=== PATIENT | female | born 1990 | race Caucasian/White ===

== ENCOUNTER → 2020-05-05 09:47 | Outpatient (BNVA) | payer OTHER, SELFPAY | PROVIDERS: PCP Internal Medicine; Referring Provider Internal Medicine; Visit Provider Internal Medicine | DX: Z76.89 Persons encountering health services in other specified circumstances (principal) ==

== ENCOUNTER → 2020-06-27 11:14 | Outpatient (BNVA) | payer OTHER, SELFPAY | PROVIDERS: PCP Internal Medicine; Referring Provider Internal Medicine; Visit Provider Internal Medicine | DX: Z76.89 Persons encountering health services in other specified circumstances (principal) ==

== ENCOUNTER → 2020-08-03 08:20 | Outpatient (BNVA) | payer OTHER, SELFPAY | PROVIDERS: PCP Internal Medicine; Visit Provider Internal Medicine ==

== ENCOUNTER 2020-08-13 08:54 | Outpatient (REF) | payer OTHER, SELFPAY ==
[2020-08-13 10:23] LABS: Estimated Average Glucose 123 mg/dL; Hemoglobin A1c % 5.9 %
[2020-08-13 10:30] LABS: Alanine Aminotransferase 12 U/L (0-31); Albumin Level 3.8 g/dL (3.5-5.0); Alkaline Phosphatase 112 U/L (39-117); Anion Gap 12 (12-20); Aspartate Amino Transferase 15 U/L (5-31); Bilirubin Total 0.7 mg/dL (0.0-1.0); Blood Urea Nitrogen 16 mg/dL (9-16); Calcium 8.3 mg/dL (8.4-10.2); Carbon Dioxide 26 mmol/L (22-29); Chloride 102 mmol/L (96-108); Cholesterol 236 mg/dL; Estimated Glomerular Filt Rate > 60; Glucose Random 179 mg/dL (60-115); HDL Cholesterol 66 mg/dL; LDL Cholesterol Calculated 157 mg/dl; Potassium 4.7 mmol/L (3.3-5.1); Sodium 135 mmol/L (135-145); Total Protein 7.2 g/dL (6.5-8.0); Triglycerides 66 mg/dL
[2020-08-13 10:54] LABS: Free T4 (Free Thyroxine) 0.75 ng/dL (0.71-1.85); HCG Quantitative < 2 mIU/mL; Thyroid Stimulating Hormone 71.84 uIU/mL (0.32-4.0); Vitamin D 25-OH Total 38.2 ng/mL (>30)
[2020-08-13 11:10] LABS: Creatinine Urine 168.13 mg/dL; Microalbum/Creatinine Ratio Ur 3.5 ug/mg cr
[2020-08-14 07:26] LABS: LDL Cholesterol Direct 176 mg/dL (<100)
[2020-08-15 17:32] LABS: Thyroglobulin <0.1 ng/mL
== END 2020-08-13 08:55 | disposition home or self-care (01) ==
LOC: HO.LAB 08:54
PROVIDERS: PCP Internal Medicine; Visit Provider Internal Medicine
DX: E10.69 Type 1 diabetes mellitus with other specified complication (principal); E55.9 Vitamin D deficiency, unspecified; E89.0 Postprocedural hypothyroidism; Z85.850 Personal history of malignant neoplasm of thyroid
CPT/HCPCS: 36415; 80053; 80061; 82043; 82306; 83036; 83721; 84432; 84439; 84443; 84702

== ENCOUNTER 2020-08-20 10:49 | Outpatient (REF) | payer OTHER, SELFPAY ==
[2020-08-20 11:49] LABS: Albumin Level 3.8 g/dL (3.5-5.0); Phosphorus 3.3 mg/dL (2.7-4.5)
[2020-08-20 12:15] LABS: Vitamin D 25-OH Total 38.9 ng/mL (>30)
[2020-08-22 16:37] LABS: Thyroglobulin <0.1 ng/mL
[2020-08-23 11:07] LABS: Calcium (PTHI) 8.5 mg/dL (8.6-10.2); PTHI 50 pg/mL (14-64)
== END 2020-08-20 10:50 | disposition home or self-care (01) ==
LOC: HO.LAB 10:49
PROVIDERS: PCP Internal Medicine; Visit Provider Internal Medicine
DX: E55.9 Vitamin D deficiency, unspecified (principal); Z85.850 Personal history of malignant neoplasm of thyroid
CPT/HCPCS: 36415; 82040; 82306; 83970; 84100; 84432; 84443

== ENCOUNTER → 2020-08-22 08:00 | Outpatient (BNVA) | payer OTHER, SELFPAY | PROVIDERS: PCP Internal Medicine; Visit Provider Internal Medicine Endocrinology, Diabetes & Metabolism ==

== ENCOUNTER → 2020-08-23 07:56 | Outpatient (BNVA) | payer OTHER, SELFPAY | PROVIDERS: PCP Internal Medicine; Visit Provider Internal Medicine Endocrinology, Diabetes & Metabolism ==

== ENCOUNTER 2020-08-23 08:22 | Outpatient (REF) | payer OTHER, SELFPAY ==
[2020-08-23 11:09] LABS: HCG Quantitative < 2 mIU/mL
== END 2020-08-23 08:23 | disposition home or self-care (01) ==
LOC: HO.10HDL 08:22
PROVIDERS: Visit Provider Internal Medicine
DX: Z85.850 Personal history of malignant neoplasm of thyroid (principal)
CPT/HCPCS: 36415; 84702

== ENCOUNTER 2020-08-24 09:16 | Outpatient (REF) | payer OTHER, SELFPAY ==
[2020-08-25 05:06] LABS: Thyroglobulin Antibodies <1 IU/mL (< or = 1)
== END 2020-08-24 09:17 | disposition home or self-care (01) ==
LOC: HO.10HDL 09:16
PROVIDERS: Visit Provider Internal Medicine
DX: Z85.850 Personal history of malignant neoplasm of thyroid (principal)
CPT/HCPCS: 36415; 86800

== ENCOUNTER 2020-10-01 10:59 | Outpatient (REF) | payer OTHER, SELFPAY ==
[2020-10-01 12:16] LABS: Creatinine Urine 79.38 mg/dL
[2020-10-01 12:24] LABS: Alanine Aminotransferase 18 U/L (0-31); Albumin Level 3.7 g/dL (3.5-5.0); Alkaline Phosphatase 130 U/L (39-117); Anion Gap 13 (12-20); Aspartate Amino Transferase 14 U/L (5-31); Bilirubin Total 0.6 mg/dL (0.0-1.0); Blood Urea Nitrogen 13 mg/dL (9-16); Calcium 7.9 mg/dL (8.4-10.2); Carbon Dioxide 26 mmol/L (22-29); Chloride 103 mmol/L (96-108); Estimated Glomerular Filt Rate > 60; Glucose Random 142 mg/dL (60-115); Potassium 4.8 mmol/L (3.3-5.1); Sodium 137 mmol/L (135-145); Total Protein 7.1 g/dL (6.5-8.0)
[2020-10-01 12:36] LABS: Thyroid Stimulating Hormone 16.71 uIU/mL (0.32-4.0)
[2020-10-03 13:36] LABS: Calcium (PTHI) 8.4 mg/dL (8.6-10.2); PTHI 45 pg/mL (14-64)
[2020-10-03 23:06] LABS: Thyroglobulin <0.1 ng/mL; Thyroglobulin Antibodies <1 IU/mL (< or = 1)
== END 2020-10-01 11:00 | disposition home or self-care (01) ==
LOC: HO.LAB 10:59
PROVIDERS: PCP Internal Medicine; Visit Provider Internal Medicine
DX: E10.69 Type 1 diabetes mellitus with other specified complication (principal); Z85.850 Personal history of malignant neoplasm of thyroid
CPT/HCPCS: 36415; 80053; 83970; 84432; 84443; 86800

== ENCOUNTER → 2020-10-06 11:11 | Outpatient (BNVA) | payer OTHER, SELFPAY | PROVIDERS: PCP Internal Medicine; Visit Provider Internal Medicine ==

== ENCOUNTER 2021-01-07 08:58 | Outpatient (REF) | payer OTHER, SELFPAY ==
[2021-01-07 09:41] LABS: Estimated Average Glucose 123 mg/dL; Hemoglobin A1C 150.4399 umol/L; Hemoglobin A1c % 5.9 %
[2021-01-07 10:00] LABS: Alanine Aminotransferase 27 U/L (0-31); Albumin Level 3.7 g/dL (3.5-5.0); Alkaline Phosphatase 147 U/L (39-117); Anion Gap 11 (12-20); Aspartate Amino Transferase 21 U/L (5-31); Bilirubin Total 0.5 mg/dL (0.0-1.0); Blood Urea Nitrogen 11 mg/dL (9-16); Calcium 8.3 mg/dL (8.4-10.2); Carbon Dioxide 25 mmol/L (22-29); Chloride 106 mmol/L (96-108); Cholesterol 163 mg/dL; Estimated Glomerular Filt Rate > 60; Glucose Random 115 mg/dL (60-115); HDL Cholesterol 57 mg/dL; LDL Cholesterol Calculated 100 mg/dl; Potassium 4.4 mmol/L (3.3-5.1); Sodium 138 mmol/L (135-145); Total Protein 7.3 g/dL (6.5-8.0); Triglycerides 34 mg/dL
[2021-01-07 10:21] LABS: Free T4 (Free Thyroxine) 1.64 ng/dL (0.71-1.85); Thyroid Stimulating Hormone 3.81 uIU/mL (0.32-4.0); Vitamin D 25-OH Total 54.6 ng/mL (>30)
[2021-01-08 09:56] LABS: LDL Cholesterol Direct 106 mg/dL (<100)
[2021-01-09 21:17] LABS: Thyroglobulin <0.1 ng/mL; Thyroglobulin Antibodies <1 IU/mL (< or = 1)
[2021-01-10 08:38] LABS: Calcium (PTHI) 8.2 mg/dL (8.6-10.2); PTHI 50 pg/mL (14-64)
== END 2021-01-07 08:59 | disposition home or self-care (01) ==
LOC: HO.LAB 08:58
PROVIDERS: PCP Internal Medicine; Visit Provider Internal Medicine
DX: E83.51 Hypocalcemia (principal); E89.0 Postprocedural hypothyroidism; E10.69 Type 1 diabetes mellitus with other specified complication; Z85.850 Personal history of malignant neoplasm of thyroid
CPT/HCPCS: 36415; 80053; 80061; 82306; 83036; 83721; 83970; 84100; 84432; 84439; 84443; 86800

== ENCOUNTER → 2021-02-22 07:59 | Outpatient (BNVA) | payer OTHER, SELFPAY | PROVIDERS: PCP Internal Medicine; Visit Provider Internal Medicine ==

== ENCOUNTER 2021-02-25 09:10 | Outpatient (REF) | payer OTHER, SELFPAY | END 2021-02-25 09:11 | disposition home or self-care (01) | LOC: HO.LAB 09:10 | PROVIDERS: PCP Internal Medicine; Visit Provider Internal Medicine | DX: Z13.89 Encounter for screening for other disorder (principal) ==

== ENCOUNTER 2021-03-11 07:57 | Outpatient (REF) | payer OTHER, SELFPAY ==
[2021-03-11 09:49] LABS: Estimated Average Glucose 123 mg/dL; Hemoglobin A1c % 5.9 %
[2021-03-11 09:56] LABS: Microalbum/Creatinine Ratio Ur 3.4 ug/mg cr
[2021-03-11 10:10] LABS: Alanine Aminotransferase 21 U/L (0-31); Albumin Level 3.6 g/dL (3.5-5.0); Alkaline Phosphatase 131 U/L (39-117); Anion Gap 11 (12-20); Aspartate Amino Transferase 15 U/L (5-31); Bilirubin Total 0.7 mg/dL (0.0-1.0); Blood Urea Nitrogen 12 mg/dL (9-16); Calcium 8.6 mg/dL (8.4-10.2); Carbon Dioxide 24 mmol/L (22-29); Chloride 107 mmol/L (96-108); Cholesterol 129 mg/dL; Estimated Glomerular Filt Rate > 60; Glucose Random 120 mg/dL (60-115); HDL Cholesterol 45 mg/dL; LDL Cholesterol Calculated 76 mg/dl; Potassium 4.3 mmol/L (3.3-5.1); Sodium 138 mmol/L (135-145); Total Protein 6.5 g/dL (6.5-8.0); Triglycerides 41 mg/dL
[2021-03-11 10:18] LABS: Free T4 (Free Thyroxine) 1.53 ng/dL (0.71-1.85); Thyroid Stimulating Hormone 0.74 uIU/mL (0.32-4.0)
[2021-03-12 08:30] LABS: LDL Cholesterol Direct 77 mg/dL (<100)
[2021-03-13 21:32] LABS: Thyroglobulin <0.1 ng/mL; Thyroglobulin Antibodies <1 IU/mL (< or = 1)
== END 2021-03-11 07:58 | disposition home or self-care (01) ==
LOC: HO.LAB 07:57
PROVIDERS: PCP Internal Medicine; Visit Provider Internal Medicine
DX: E83.51 Hypocalcemia (principal); E89.0 Postprocedural hypothyroidism
CPT/HCPCS: 36415; 80053; 80061; 82043; 83036; 83721; 84432; 84439; 84443; 86800

== ENCOUNTER → 2021-05-15 07:27 | Outpatient (BNVA) | payer OTHER, SELFPAY | PROVIDERS: PCP Internal Medicine; Visit Provider Internal Medicine | DX: E10.69 Type 1 diabetes mellitus with other specified complication (principal); E89.0 Postprocedural hypothyroidism; E55.9 Vitamin D deficiency, unspecified; E78.5 Hyperlipidemia, unspecified; E83.51 Hypocalcemia; I10 Essential (primary) hypertension; Z85.850 Personal history of malignant neoplasm of thyroid | CPT/HCPCS: 82947 ==

== ENCOUNTER 2021-06-03 09:41 | Outpatient (REF) | payer OTHER, SELFPAY ==
[2021-06-03 09:52] LABS: MANUAL DIFF FLAG NO
[2021-06-03 10:25] LABS: Basophils Percent Auto 0.6 % (0-2); Eosinophils Percent Auto 0.6 % (0-4); Hematocrit 40.5 % (37.0-47.0); Hemoglobin 13.6 g/dl (12.0-16.0); Imm Gran Abs Auto 0.01 X10*3/uL (0.00-0.03); Imm Gran Pct Auto 0.2 % (0.0-0.4); Lymphocytes Absolute Auto 1.8 X10*3/uL (1.2-4.9); Lymphocytes Percent Auto 29.1 % (20-40); Mean Corpuscular HGB Conc 33.6 g/dl (31.0-35.0); Mean Corpuscular Hemoglobin 29.4 pg (27.0-33.0); Mean Corpuscular Volume 87.5 fL (80.0-98.0); Mean Platelet Volume 11.2 fL (9.4-12.3); Monocytes Absolute Auto 0.5 X10*3/uL (0.1-1.2); Monocytes Percent Auto 8.2 % (2-11); Neutrophils Absolute Auto 3.8 x10*3/uL (2.0-8.3); Neutrophils Percent Auto 61.3 % (45-73); Platelet Count 383 X10*3/uL (160-400); Red Blood Count 4.63 X10*6/uL (4.20-5.50); Red Cell Distribution Width 11.8 % (11.0-16.0); White Blood Count 6.2 X10*3/uL (4.8-10.8)
[2021-06-03 10:43] LABS: Alanine Aminotransferase 33 U/L (0-31); Albumin Level 3.6 g/dL (3.5-5.0); Alkaline Phosphatase 139 U/L (39-117); Anion Gap 10 (12-20); Aspartate Amino Transferase 21 U/L (5-31); Bilirubin Total 0.6 mg/dL (0.0-1.0); Blood Urea Nitrogen 14 mg/dL (9-16); Calcium 8.7 mg/dL (8.4-10.2); Carbon Dioxide 26 mmol/L (22-29); Chloride 104 mmol/L (96-108); Estimated Glomerular Filt Rate > 60; Glucose Random 163 mg/dL (60-115); Potassium 4.7 mmol/L (3.3-5.1); Sodium 135 mmol/L (135-145); Total Protein 6.8 g/dL (6.5-8.0)
[2021-06-03 11:05] LABS: Free T4 (Free Thyroxine) 1.67 ng/dL (0.71-1.85); Thyroid Stimulating Hormone 0.27 uIU/mL (0.32-4.0); Vitamin B12 346 pg/mL (200-900); Vitamin D 25-OH Total 52.9 ng/mL (>30)
[2021-06-05 14:42] LABS: Calcium (PTHI) 8.7 mg/dL (8.6-10.2); PTHI 26 pg/mL (14-64); Thyroglobulin <0.1 ng/mL; Thyroglobulin Antibodies <1 IU/mL (< or = 1)
== END 2021-06-03 09:42 | disposition home or self-care (01) ==
LOC: HO.LAB 09:41
PROVIDERS: PCP Internal Medicine; Visit Provider Internal Medicine
DX: E10.69 Type 1 diabetes mellitus with other specified complication (principal); E55.9 Vitamin D deficiency, unspecified
CPT/HCPCS: 36415; 80053; 82306; 82607; 83970; 84432; 84439; 84443; 85025; 86800

== ENCOUNTER → 2021-06-09 14:58 | Outpatient (BNVA) | payer OTHER, SELFPAY | PROVIDERS: PCP Internal Medicine; Visit Provider Registered Nurse Diabetes Educator ==

== ENCOUNTER → 2021-07-14 14:58 | Outpatient (BNVA) | payer OTHER, SELFPAY | PROVIDERS: PCP Internal Medicine; Visit Provider Registered Nurse Diabetes Educator ==

== ENCOUNTER → 2021-08-04 14:24 | Outpatient (BNVA) | payer OTHER, SELFPAY | PROVIDERS: PCP Internal Medicine; Visit Provider Registered Nurse Diabetes Educator ==

== ENCOUNTER → 2021-09-12 15:51 | Outpatient (BNVA) | payer OTHER, SELFPAY | PROVIDERS: PCP Internal Medicine; Visit Provider Registered Nurse Diabetes Educator | DX: Z13.89 Encounter for screening for other disorder (principal) ==

== ENCOUNTER 2021-10-21 09:59 | Outpatient (REF) | payer OTHER, SELFPAY ==
[2021-10-21 11:02] LABS: Alanine Aminotransferase 52 U/L (0-31); Albumin Level 3.6 g/dL (3.5-5.0); Alkaline Phosphatase 132 U/L (39-117); Anion Gap 9 (12-20); Aspartate Amino Transferase 30 U/L (5-31); Bilirubin Total 0.5 mg/dL (0.0-1.0); Blood Urea Nitrogen 12 mg/dL (9-16); Calcium 8.8 mg/dL (8.4-10.2); Carbon Dioxide 28 mmol/L (22-29); Chloride 106 mmol/L (96-108); Estimated Glomerular Filt Rate > 60; Glucose Random 104 mg/dL (60-115); Potassium 4.6 mmol/L (3.3-5.1); Sodium 138 mmol/L (135-145); Total Protein 6.7 g/dL (6.5-8.0)
[2021-10-21 11:05] LABS: Estimated Average Glucose 120 mg/dL; Hemoglobin A1c % 5.8 %
[2021-10-21 11:22] LABS: Free T4 (Free Thyroxine) 1.25 ng/dL (0.71-1.85); Thyroid Stimulating Hormone 0.19 uIU/mL (0.32-4.0); Vitamin D 25-OH Total 43.2 ng/mL (>30)
[2021-10-23 15:57] LABS: Calcium (PTHI) 8.5 mg/dL (8.6-10.2); PTHI 43 pg/mL (16-77)
[2021-10-24 04:51] LABS: Thyroglobulin Antibodies <1 IU/mL (< or = 1)
[2021-10-24 09:12] LABS: Thyroglobulin <0.1 ng/mL
== END 2021-10-21 10:00 | disposition home or self-care (01) ==
LOC: HO.LAB 09:59
PROVIDERS: PCP Internal Medicine; Visit Provider Internal Medicine
DX: E89.0 Postprocedural hypothyroidism (principal); E83.51 Hypocalcemia; E10.69 Type 1 diabetes mellitus with other specified complication
CPT/HCPCS: 36415; 80053; 82306; 83036; 83970; 84432; 84439; 84443; 86800

== ENCOUNTER → 2021-10-23 07:30 | Outpatient (BNVA) | payer OTHER, SELFPAY | PROVIDERS: PCP Internal Medicine; Visit Provider Internal Medicine | DX: Z13.89 Encounter for screening for other disorder (principal) ==

== ENCOUNTER → 2021-10-30 11:01 | Outpatient (BNVA) | payer OTHER, SELFPAY | PROVIDERS: PCP Internal Medicine; Visit Provider Registered Nurse Diabetes Educator | DX: Z13.89 Encounter for screening for other disorder (principal) ==

== ENCOUNTER 2021-12-07 08:18 | Outpatient (REF) | payer OTHER, SELFPAY ==
--- NOTE | ~2021-12-07 | US_ITS ---
EXAMINATION: US SOFT TISSUE NECK CLINICAL INFORMATION: Personal history of malignant neoplasm of thyroid. COMPARISON: Ultrasound-guided thyroid biopsy dated 08/06/2019. Ultrasound soft tissue head/neck thyroid dated 04/15/2019. TECHNIQUE: Ultrasound of the neck soft tissues is performed with high- frequency alfaro-scale imaging and color Doppler. FINDINGS: THYROID BED: Prior thyroidectomy. No residual thyroid tissue demonstrated in the thyroid bed. No cystic or solid nodules demonstrated in the thyroid bed. RIGHT NECK SOFT TISSUES: Scattered architecturally normal nodes are present. The nodes show normal fatty hilus, normal cortical thickness, and no cystic change or calcification. No abnormal color flow. The largest nodes are as follows: Level IB: 0.76 x 0.45 x 0.72 cm. Normal dianelys architecture. Level IA: 0.72 x 0.60 x 0.52 cm. Normal dianelys architecture. LEFT NECK SOFT TISSUES: Scattered architecturally normal nodes are present. The nodes show normal fatty hilus, normal cortical thickness, and no cystic change or calcification. No abnormal color flow. No lymph nodes seen on the left. US/US soft tiss head and/or neck IMPRESSION: 1. Benign right neck lymph nodes. No abnormal left neck lymph nodes seen. 2. If clinically indicated further evaluation of the neck soft tissues and nodes may be performed with CT soft tissue neck with intravenous contrast.
== END 2021-12-07 08:19 | disposition home or self-care (01) ==
LOC: HO.HMGCX 08:18
PROVIDERS: Visit Provider Internal Medicine
DX: Z85.850 Personal history of malignant neoplasm of thyroid (principal)
CPT/HCPCS: 76536

== ENCOUNTER 2022-02-24 09:45 | Outpatient (REF) | payer OTHER, SELFPAY ==
[2022-02-24 11:54] LABS: Free T4 (Free Thyroxine) 1.08 ng/dL (0.71-1.85); HCG Quantitative < 2 mIU/mL
[2022-02-26 17:47] LABS: Thyroglobulin <0.1 ng/mL; Thyroglobulin Antibodies <1 IU/mL (< or = 1)
== END 2022-02-24 09:46 | disposition home or self-care (01) ==
LOC: HO.LAB 09:45
PROVIDERS: PCP Internal Medicine; Visit Provider Internal Medicine
DX: E89.0 Postprocedural hypothyroidism (principal); Z85.850 Personal history of malignant neoplasm of thyroid
CPT/HCPCS: 36415; 84432; 84439; 84443; 84702; 86800

== ENCOUNTER → 2022-04-12 13:07 | Outpatient (BNVA) | payer OTHER, SELFPAY | PROVIDERS: PCP Internal Medicine; Visit Provider Dietitian, Registered | DX: E10.319 Type 1 diabetes mellitus with unspecified diabetic retinopathy without macular edema (principal) | CPT/HCPCS: 97802 ==

== ENCOUNTER 2022-04-21 08:50 | Outpatient (REF) | payer OTHER, SELFPAY ==
[2022-04-21 10:31] LABS: Anion Gap 15 (12-20); Blood Urea Nitrogen 13 mg/dL (9-16); Carbon Dioxide 24 mmol/L (22-29); Chloride 103 mmol/L (96-108); Cholesterol 248 mg/dL; Estimated Glomerular Filt Rate > 60; Glucose Fasting 134 mg/dL (60-99); HDL Cholesterol 60 mg/dL; LDL Cholesterol Calculated 177 mg/dl; Potassium 4.5 mmol/L (3.3-5.1); Sodium 137 mmol/L (135-145); Triglycerides 59 mg/dL
[2022-04-21 10:40] LABS: Vitamin D 25-OH Total 38.9 ng/mL (>30)
== END 2022-04-21 08:51 | disposition home or self-care (01) ==
LOC: HO.LAB 08:50
PROVIDERS: Absent Provider Internal Medicine; PCP Internal Medicine; Visit Provider Internal Medicine
DX: E10.319 Type 1 diabetes mellitus with unspecified diabetic retinopathy without macular edema (principal); E10.49 Type 1 diabetes mellitus with other diabetic neurological complication; E78.5 Hyperlipidemia, unspecified; I10 Essential (primary) hypertension; E55.9 Vitamin D deficiency, unspecified
CPT/HCPCS: 36415; 80048; 80061; 82043; 82306

== ENCOUNTER 2022-04-28 10:02 | Outpatient (REF) | payer OTHER, SELFPAY ==
[2022-04-28 11:23] LABS: Free T4 (Free Thyroxine) 1.42 ng/dL (0.71-1.85); Thyroid Stimulating Hormone 0.81 uIU/mL (0.32-4.0)
[2022-05-03 05:41] LABS: Thyroglobulin Antibody <1 IU/mL (<=1); Thyroglobulin Level <0.1 ng/mL
== END 2022-04-28 10:03 | disposition home or self-care (01) ==
LOC: HO.LAB 10:02
PROVIDERS: PCP Internal Medicine; Visit Provider Internal Medicine
DX: Z85.850 Personal history of malignant neoplasm of thyroid (principal)
CPT/HCPCS: 36415; 84432; 84439; 84443; 86800

== ENCOUNTER 2022-05-05 09:42 | Outpatient (REF) | payer OTHER, SELFPAY ==
[2022-05-05 10:57] LABS: Estimated Average Glucose 117 mg/dL; Hemoglobin A1c % 5.7 %
[2022-05-05 11:02] LABS: Creatinine Urine 131.65 mg/dL; Microalbum/Creatinine Ratio Ur 6.8 ug/mg cr
== END 2022-05-05 09:43 | disposition home or self-care (01) ==
LOC: HO.LAB 09:42
PROVIDERS: PCP Internal Medicine; Visit Provider Internal Medicine
DX: E10.319 Type 1 diabetes mellitus with unspecified diabetic retinopathy without macular edema (principal)
CPT/HCPCS: 36415; 82043; 83036

== ENCOUNTER 2022-12-07 12:46 | Outpatient (REF) | payer OTHER, SELFPAY ==
--- NOTE | ~2022-12-07 | XR_ITS ---
EXAMINATION: XR HAND, RIGHT CLINICAL INFORMATION: Pain COMPARISON: None available. TECHNIQUE: PA, lateral, and oblique views of the right hand. FINDINGS: Bone alignment is normal. No acute fracture or dislocation. There may be old trauma to the fifth metacarpal shaft. Joint spaces are normal. Soft tissues are normal. XR/XR hand RT min 3V IMPRESSION: No acute findings.
== END 2022-12-07 12:47 | disposition home or self-care (01) ==
LOC: HO.HMGCX 12:46
PROVIDERS: PCP Internal Medicine; Visit Provider Internal Medicine
DX: M79.644 Pain in right finger(s) (principal)
CPT/HCPCS: 73130

== ENCOUNTER 2022-12-15 10:29 | Outpatient (REF) | payer OTHER, SELFPAY ==
[2022-12-15 11:18] LABS: Estimated Average Glucose 120 mg/dL; Hemoglobin A1c % 5.8 %
[2022-12-15 11:48] LABS: Alanine Aminotransferase 18 U/L (0-31); Albumin Level 3.7 g/dL (3.5-5.0); Alkaline Phosphatase 103 U/L (39-117); Anion Gap 12 (12-20); Aspartate Amino Transferase 17 U/L (5-31); Bilirubin Total 0.5 mg/dL (0.0-1.0); Blood Urea Nitrogen 13 mg/dL (9-16); Calcium 9.1 mg/dL (8.4-10.2); Carbon Dioxide 25 mmol/L (22-29); Chloride 105 mmol/L (96-108); Cholesterol 209 mg/dL; Estimated Glomerular Filt Rate > 60; Glucose Fasting 120 mg/dL (60-99); Glucose Random 120 mg/dL (60-115); HDL Cholesterol 56 mg/dL; LDL Cholesterol Calculated 143 mg/dl; Phosphorus 3.6 mg/dL (2.7-4.5); Potassium 4.3 mmol/L (3.3-5.1); Sodium 138 mmol/L (135-145); Total Protein 6.8 g/dL (6.5-8.0); Triglycerides 53 mg/dL
[2022-12-15 11:50] LABS: Cholesterol 206 mg/dL; HDL Cholesterol 57 mg/dL; LDL Cholesterol Calculated 141 mg/dl; Triglycerides 43 mg/dL
[2022-12-15 12:06] LABS: Thyroid Stimulating Hormone 2.19 uIU/mL (0.32-4.0)
[2022-12-15 12:10] LABS: Vitamin D 25-OH Total 49.9 ng/mL (>30)
[2022-12-15 12:52] LABS: Microalbum/Creatinine Ratio Ur 8.7 ug/mg cr
[2022-12-17 10:24] LABS: LDL Cholesterol Direct 141 mg/dL (<100)
[2022-12-19 14:18] LABS: Calcium (PTHI) 8.7 mg/dL (8.6-10.2); PTHI 31 pg/mL (16-77)
[2022-12-20 04:28] LABS: Thyroglobulin Antibody <1 IU/mL (<=1); Thyroglobulin Level <0.1 ng/mL
== END 2022-12-15 10:30 | disposition home or self-care (01) ==
LOC: HO.LAB 10:29
PROVIDERS: PCP Internal Medicine; Visit Provider Internal Medicine
DX: E78.5 Hyperlipidemia, unspecified (principal); I10 Essential (primary) hypertension; E10.319 Type 1 diabetes mellitus with unspecified diabetic retinopathy without macular edema; E55.9 Vitamin D deficiency, unspecified; E89.0 Postprocedural hypothyroidism; Z85.850 Personal history of malignant neoplasm of thyroid
CPT/HCPCS: 36415; 80048; 80053; 80061; 82043; 82306; 83036; 83721; 83970; 84100; 84432; 84439; 84443; 86800

== ENCOUNTER 2023-01-16 09:23 | Outpatient (AMB) | payer OTHER, SELFPAY ==
--- NOTE | 2023-01-16 09:23 | MHC.OFFVIS ---
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: No Allergies No Known Allergies Allergy (Verified 01/16/23 11:55) Medication List - Last Reconciled 01/16/23 by Estefany Medrano DO atorvastatin 40 mg PO DAILY calcium citrate-vitamin D3 315 mg-6.25 mcg (250 unit) (Citracal + Vitamin D Maximum) 2 tabs PO DAILY cholecalciferol (vitamin D3) 50 mcg PO DAILY 90 days insulin lispro (Humalog U-100 Insulin) Up to 150 units daily via insulin pump subcut daily; ROXY - no substitutions Brand name medically necessary 30 days lisinopril 2.5 mg PO DAILY 30 days pen needle, diabetic (BD Ultra-Fine Micro Pen Needle) 8x daily Tirosint (levothyroxine) 175 mcg PO DAILY 30 days NS HPI HPI Comments History of Present Illness Details 32 YO Female with PMHx T1DM, PTC s/p hemithyroidectomy and Oswaldo's disease who is seen in F/U. Of note her T1DM will not be reviewed today. 1) T1DM: Initially diagnosed with T1DM at the age of 2. She is currently using the Tandem T-Slim insulin pump and the DEXCOM G6 CGM. Pump/Sensor: Uses Tandem T-Slim insulin pump with Lispro. Does use Control IQ. Pump settings: Basal: 12 am: 1.75 units/hr Total Daily Basal Dose: 42.0 units/day ISF: 15 ICR: 3 Goal: 100 Duration of Insulin Action: 3 hours She is currently using a total daily dose of 98.82 units of insulin, with 31% basal and 69% bolus. She changes her site Q 2-3 days. Has DEXCOM G6 Sensor. Unable to review sugars today. Most recent A1C: 5.8% 10/21/2021, unchanged from 5.9% 03/11/2021. She does have occasional lows overnight as well as after her lunchtime bolus. She is symptomatic at these times and treats according to the rule of 15's. Denies family history of autoimmunity. Has eyes checked yearly, last eye exam 05/2021, she reports there is concern for retinopathy. She sees Dr. Houser at [facility]. Denies Neuropathy. Does have stocking glove pattern distribution of paresthesias. No Nephropathy, off TOMASZ/ARB as she was trying to conceive. UAC 3.4 03/11/2021. Has HLD, off statin as she was trying to conceive. LDL 77 03/11/2021. Denies CAD Has had diabetes education. Diet/Carb counting: Is comfortable with carb counting. She recently stopped her OCP and is interested in conceiving in the near future. 2) Thyroid Cancer: The patient was noted to have a goiter on exam and underwent thyroid US which revealed a multinodular thyroid. [facility] which revealed a diffusely heterogenous gland consistent with Oswaldo's disease, with multiple pseudonodules. There was a true nodule present in the R mid pole measuring 1.0 cm with some peripheral calcification. FNA biopsy of this nodule was performed with official Cytology reading [place] Category IV Suspicious for follicular neoplasm. I did receive a call from the Pathologist Dr. Bunny Connor on 08/10/2019 who stated that he felt this was more consistent with a [place] Category V, suspicious for PTC, and that he felt strongly the lesion should be removed. 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 0/2 lymph nodes were positive. This was [id number]. She underwent a completion thyroidectomy 03/23/2020. Path revealed 2 foci of PTC measuring 1.6 cm and 0.2 cm. The 1.6 cm foci did have ill defined margins as well as capsular invasion. She did undergo I131 ablation that was thyrogen stimulated 08/24/2020 with 29.1 mCi of I131. 08/20/20 TSH 45.3, TG <0.1 with TgAB <1. WBS subsequent to this treatment revealed faint uptake within the neck, and a lack of physiologic activity throughout the body, which was concerning for a high iodine load prior to treatment. She had labs completed 10/01/2020 which revealed a TSH of 16.71, TG <0.1 and TG antibody <1. Her dose of Levothyroxine was increased to 200 mcg PO daily. Labs repeated 01/07/2021 revealed a TSH of 3.81, TG <0.1 and TgAB <1. Her dose was changed to Tirosint 200 mcg PO daily at that time due to suspected absorption issues. She then became slightly hyperthyroid so her Tirosint was decreased to 175 mcg PO daily. She had an US head and neck 12/07/2021 which revealed no abnormality. US Head and Neck: 12/07/2021 FINDINGS: THYROID BED: Prior thyroidectomy. No residual thyroid tissue demonstrated in the thyroid bed. No cystic or solid nodules demonstrated in the thyroid bed. RIGHT NECK SOFT TISSUES: Scattered architecturally normal nodes are present. The nodes show normal fatty hilus, normal cortical thickness, and no cystic change or calcification. No abnormal color flow. The largest nodes are as follows: Level IB: 0.76 x 0.45 x 0.72 cm.? Normal dianelys architecture. Level IA: 0.72 x 0.60 x 0.52 cm.? Normal dianelys architecture. LEFT NECK SOFT TISSUES: Scattered architecturally normal nodes are present. The nodes show normal fatty hilus, normal cortical thickness, and no cystic change or calcification. No abnormal color flow. No lymph nodes seen on the left. US/US soft tiss head and/or neck IMPRESSION: 1. Benign right neck lymph nodes. ? No abnormal left neck lymph nodes seen. ? 2. If clinically indicated further evaluation of the neck soft tissues and nodes may be performed with CT soft tissue neck with intravenous contrast. 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 History of thyroid cancer HLD (hyperlipidemia) HTN (hypertension) Hypocalcemia Morbid obesity with BMI of 50.0-59.9, adult Onychomycosis of multiple toenails with type 1 diabetes mellitus Postoperative hypothyroidism Proteinuria Type 1 diabetes mellitus with retinopathy Vitamin D deficiency Surgical History History of dental surgery History of foot surgery Hx of thyroidectomy Family History Father Myocardial infarction Pacemaker Mother Pulmonary embolism High cholesterol Social History Household Members: Spouse Housing: House Patient Tobacco Use Status: Never used Tobacco e-Cigarette/Vaping Use: Never Used Second Hand Smoke Exposure: No service: No Current occupational status: employed Cognitive needs: No Hearing needs: No Vision needs: Yes Assessment & Plan Assessment & Plan (1) History of thyroid cancer: Code(s): Z85.850 - Personal history of malignant neoplasm of thyroid Plan: 30 YO Female with 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 She is s/p R hemithyroidectomy wth subsequent completion thyroidectomy. She did undergo I131 ablation with 29.1 mCi I131 08/24/2020. Post-treatment WBS revealed very little uptake, which was concerning for a high iodine load prior to treatment. Her TG levels are undetectable with negative TG antibodies, which is reassuring. Goal TSH is currently 0.5-2.0. She is on Levothyroxine 175 mcg PO daily, dose recently increased after labs showed hypothyroidism. Will repeat labs in 3 months time. She has declined further I131 WBS as she is interested in fertility in the near future. She will F/U as scheduled with routine labs. All of her questions were answered today. She is in agreement with this plan of care. I spent 20 minutes in reviewing the record, seeing the patient and documenting in the medical record, including 8 minutes on the phone with the Patient. (2) Postoperative hypothyroidism: Code(s): E89.0 - Postprocedural hypothyroidism Plan: Goal TSH is 0.5-2.0. Will repeat levels in 3 months time. I did advise her that her TSH must be below 2.4 prior to . She verbalized understanding. (3) Vitamin D deficiency: Code(s): E55.9 - Vitamin D deficiency, unspecified Plan: Vitamin D at goal. No changes. (4) T1DM (type 1 diabetes mellitus): Code(s): E10.9 - Type 1 diabetes mellitus without complications Qualifiers: Diabetes mellitus complication status: with other specified complication Qualified Code(s): E10.69 - Type 1 diabetes mellitus with other specified complication Plan: She is currently using the Tandem T-Slim insulin pump. We did review that she does have significant insulin resistance in addition to her T1DM. We reviewed the option of Mounjaro which can help with significant weight loss. She has decided to focus on weight loss efforts prior to attempting to conceive. We did review mounjaro must be stopped for 3 months prior to conception. She verbalizes understanding. Will start Mounjaro 2.5 mg once a week. She will notify me of any issues with insurance coverage. We reviewed the side effects of GLP-1 medication. Patient has no history of pancreatitis and no personal or family history of medullary thyroid cancer. She is athyrotic due to total thyroidectomy for PTC. We reviewed the black box warning for use of mounjaro in those with thyroid cancer. She states she understands these risks but wishes to use Mounjaro anyways. She will notify me of any problems. All of her questions were answered. She is in agreement with this plan of care. The importance of adherence to prescribed regimen was discussed with the patient including checking finger sticks 3-4 times per day, using medication as prescribed, monitoring for hypoglycemia and treating any episode of hypoglycemia according to the rule of 15's. The signs and symptoms of hypoglycemia were reviewed in detail, as well as the rule of 15's to treat. Proper foot care was also discussed with the patient, and the importance of yearly dilated eye exam. The patient was asked to have copy of eye exam sent to our office for review. (5) HTN (hypertension): Code(s): I10 - Essential (primary) hypertension Qualifiers: Hypertension type: primary hypertension Qualified Code(s): I10 - Essential (primary) hypertension Plan: Off TOMASZ/ARB as she was trying to conceive in the near future. (6) HLD (hyperlipidemia): Code(s): E78.5 - Hyperlipidemia, unspecified Qualifiers: Hyperlipidemia type: unspecified Qualified Code(s): E78.5 - Hyperlipidemia, unspecified Plan: Off Statin as she had been trying to conceive in the near future. (7) Hypocalcemia: Code(s): E83.51 - Hypocalcemia Plan: Patient with hypocalcemia due to hypoparathyroidism. Her PTH has recovered nicely. Remains on Calcium citrate 2 tabs daily. Calcium corrected for albumin is WNL. Medications: New tirzepatide (Mounjaro) 2.5 mg (0.5 mL) subcut QWEEK 4 weeks 2 mL 0RF E10.319 - Type 1 diabetes mellitus with unspecified diabetic retinopathy without macular edema Telehealth Telehealth Location of provider rendering services: practice address Location of patient: address on file Patient Identification confirmed using: Name, : Yes Telehealth method: voice only Patient verbally consented to treatment: Yes Patient verbally consented to billing insurance company: Yes Patient informed of any privacy concerns related to visit: Yes Coding Level of Care Code Tele Est Pt Level 3 (49304) Diagnoses History of thyroid cancer Z85.850 Postoperative hypothyroidism E89.0 Vitamin D deficiency E55.9 T1DM (type 1 diabetes mellitus) E10.69 Diabetes mellitus complication status: with other specified complication HTN (hypertension) I10 Hypertension type: primary hypertension HLD (hyperlipidemia) E78.5 Hyperlipidemia type: unspecified Hypocalcemia E83.51
== END 2023-01-16 14:01 | disposition home or self-care (01) ==
LOC: HO.ENCR 09:23
PROVIDERS: PCP Internal Medicine; Visit Provider Internal Medicine
DX: E89.0 Postprocedural hypothyroidism (principal); Z85.850 Personal history of malignant neoplasm of thyroid; E55.9 Vitamin D deficiency, unspecified; E10.69 Type 1 diabetes mellitus with other specified complication; I10 Essential (primary) hypertension; E78.5 Hyperlipidemia, unspecified; E83.51 Hypocalcemia
CPT/HCPCS: 99213

== ENCOUNTER → 2023-01-16 09:23 | Outpatient (BNVA) | payer OTHER, SELFPAY | PROVIDERS: PCP Internal Medicine; Visit Provider Internal Medicine ==

== ENCOUNTER 2023-01-22 10:01 | Outpatient (AMB) | payer OTHER, SELFPAY ==
[2023-01-22 10:17] VITALS: BMI 56.9
--- NOTE | 2023-01-22 10:17 | A.OFFVIS_ITS ---
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 No injury she can recall. States pain is triggered when she is driving. States her thumb jams .Patient uses her hands a lot at work and texting and this limits her activity.States she is not able to fully extend her thumb. Hx of DM. No prior treatment. 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 She says she has some radiating pain in her thumb to the A1 alida when she tries to extend her thumb. 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 She also enjoys bowling often but says her thumb limits all her daily activities. She is a Diabetic. She says she had a period of time when she had numbness in the back of her hand extending up her forearm and into her elbow. She says this has resolved. 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 History of thyroid cancer HLD (hyperlipidemia) HTN (hypertension) Hypocalcemia Morbid obesity with BMI of 50.0-59.9, adult Onychomycosis of multiple toenails with type 1 diabetes mellitus Postoperative hypothyroidism Proteinuria Type 1 diabetes mellitus with retinopathy Vitamin D deficiency Surgical History History of dental surgery History of foot surgery Hx of thyroidectomy Family History Father Myocardial infarction Pacemaker Mother Pulmonary embolism High cholesterol Social History Household Members: Spouse Housing: House Patient Tobacco Use Status: Never used Tobacco e-Cigarette/Vaping Use: Never Used Second Hand Smoke Exposure: No service: No Current occupational status: employed 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 Cognitive needs: No Hearing needs: No Vision needs: Yes Review of Systems Const All systems reviewed & are unremarkable except as noted in HPI and below Physical Exam Vital Signs: BMI result Body Mass Index 56.9 Const General: cooperative, healthy appearing and no acute distress Orientation/consciousness: patient oriented x3 HEENT Head: Yes normocephalic and Yes atraumatic Eyes EOM: EOMs intact bilaterally Resp Effort & Inspection: normal respiratory effort and able to speak in complete s entences Cardio Jugular venous distension: no JVD Skin General skin exam: turgor normal Rashes: no rashes Neuro General: patient oriented x3 Extrem Other: Evaluation of Right Upper Extremity: The patient is alert, oriented, and in no acute distress Neuro: Median, Ulnar, Radial nerves motor and sensory intact and sensation is normal to the tips of all digits Vascular: Cap refill brisk ROM: She can bring her finger closed to a fist and back into full extension, except for the right thumb IP joint Her thumb is locked in a position of flexion Good EPL tendon function, as she is able to elevate her thumb with a table top test. Tender to palpation over the right thumb A1 alida. Attempts to try to passively extend the thumb at the IP joint cause pain at the A1 alida. I did not force it. Skin: No lacerations or abrasions. General: No Ecchymosis. No Erythema or evidence of infection. Radiographs: 3 views of the right hand, with attention to the thumb, from 12/07/22 were reviewed by me today in clinic. They show no fractures, dislocations, or significant arthritic changes. 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 Right trigger thumb With her thumb locked in flexion Good EPL tendon function I educated her about this condition I discussed treatment options Given her thumb is locked in flexion, I recommend surgery and she is in agreement The risks and benefits of operative treatment were discussed with the patient and the patient wishes to proceed with surgery. These risks include, but are not limited to risk of damage to blood vessels, nerves, tendons, infection, recurrence, incomplete relief of preoperative symptoms, persistent pain, possible need for further surgery and the risks associated with regional blocks and anesthesia. The plan is to take the patient to the operating room sometime in the next few weeks for the following procedures: 1. Right trigger thumb release, under local All of the preoperative paperwork including the consent was filled out today. All the patient's questions were answered. The patient understands that they will be contacted by our reinforcing steel worker soon to schedule this procedure She says she has issues with injections and has taken Ativan in the past prior to procedures. She would like to take one prior to surgery, and says this was usually provided for her prior to surgery I prescribed one dose of Lorazepam 0.5mg to take just prior to her surgery. The prescription was sent to her pharmacy. She denies blood thinners, asthma, heart, lung, kidney issues She is a Diabetic, her most recent HgA1c was 5.8% o 12/15/22 Scribed for Rachel Pedroza MD by Ryan Ward, medical record administrator, on 01/22/23 at 10:55 AM, EST. 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
== END 2023-01-22 11:05 | disposition home or self-care (01) ==
PROVIDERS: PCP Internal Medicine; Visit Provider Orthopaedic Surgery
DX: M65.311 Trigger thumb, right thumb (principal)
CPT/HCPCS: 99204

== ENCOUNTER → 2023-01-22 10:01 | Outpatient (BNVA) | payer OTHER, SELFPAY | PROVIDERS: PCP Internal Medicine; Visit Provider Orthopaedic Surgery ==

== ENCOUNTER 2023-02-21 08:44 | Day surgery (SDC) | payer OTHER, SELFPAY ==
[2023-02-21 09:03] VITALS: BP 147/84; PULSE 83; RESP 20; TEMP 36.3; O2SAT 98; BMI 51.6
--- NOTE | 2023-02-21 11:07 | MHC.SHP ---
Pre-Procedural Eval Section A Date of Service: 02/21/23 The patient is an INPATIENT: No Changes since office visit: No Cold of Flu in the past 2 weeks, No New Medical Problems, No Changes in Medication and No Patient answered all questions The History & Physical has been completed within 30 days and I have reviewed it.: Yes Section B Chief Complaint: Trigger thumb, right thumb Allergies: Allergies Allergy/AdvReac Type Severity Reaction Status Date / Time No Known Allergies Allergy Verified 01/22/23 10:25 Plan I have reviewed the history and physical and performed a pertinent physical examination on my patient. No changes have occurred unless specified. Time Spent With Patient Time: Total time managing care of this patient today ____ minutes.
--- NOTE | 2023-02-21 11:07 | W.PM.OPN ---
Operative Note Operative Note Date of Service: 02/21/23 Narrative: Operative Note Preop diagnosis: 1. Right thumb Trigger finger Postop diagnosis: 1. Right thumb Trigger finger Procedure: 1. Right thumb A1 alida release Surgeon: Rachel Pedroza MD Anesthesia: local block using 1% lidocaine with epinephrine Findings: No locking or catching after A1 alida release EBL: Less than 5 mL Tourniquet time: None Specimens: None Complications: None Disposition: Brought to recovery room in stable condition Plan: Follow-up for 10-14 days for wound check and suture removal Indications: The patient is 32 years old, with a right thumb trigger finger that has been unresponsive to nonoperative management. The risks and benefits of operative treatment including but not limited to risk of damage to blood vessels, nerves, tendons, infection, persistent pain, persistent symptoms, recurrence or possible need for additional surgery were discussed with the patient and the patient wishes to proceed with surgery. Procedure: Once consent was obtained a local block was performed in the preop area using a combination of 1% lidocaine with epinephrine. The patient was then brought back to the operating suite and placed on the operative table in supine position. The right upper extremity was prepped and draped in a standard surgical fashion. Once assured that we had a good block, a 1.5 cm oblique incision was made centered over the A1 alida of the right thumb . The incision was made through the skin to the subcutaneous tissues using a #15 blade. Careful dissection was made down to the level of the A1 alida using tenotomy scissors, with care being taken to protect the nearby neurovascular structures. A longitudinal incision was made in the A1 alida 1st using a #15 blade, then using tenotomy scissors under direct visualization. The A1 alida was noted to be thickened. Following our A1 alida release, we no longer saw any locking or catching of the digit with flexion and extension. Once satisfied with our A1 alida release the wound was copiously irrigated with normal saline and hemostasis was obtained with a brief period of local pressure. The skin edges were reapproximated with some 5.0 nylon suture material and a sterile dressing was applied. The patient appears to have tolerated the procedure well and with no complications. All digits were well vascularized at the conclusion of the case.
[2023-02-21 11:10] VITALS: BP 124/63; PULSE 83; RESP 18; O2SAT 100
== END 2023-02-21 11:29 | disposition home or self-care (01) ==
PROVIDERS: PCP Internal Medicine; Visit Provider Orthopaedic Surgery
PROC: (CPT 26055; principal; 2023-02-21 09:40)
DX: M65.311 Trigger thumb, right thumb (principal); M25.641 Stiffness of right hand, not elsewhere classified; E10.49 Type 1 diabetes mellitus with other diabetic neurological complication; E10.319 Type 1 diabetes mellitus with unspecified diabetic retinopathy without macular edema; Z79.4 Long term (current) use of insulin; E89.0 Postprocedural hypothyroidism; Z85.850 Personal history of malignant neoplasm of thyroid; I10 Essential (primary) hypertension; E78.5 Hyperlipidemia, unspecified; E66.01 Morbid (severe) obesity due to excess calories; Z68.43 Body mass index [BMI] 50.0-59.9, adult; Z98.890 Other specified postprocedural states
CPT/HCPCS: 26055; J0171

== ENCOUNTER → 2023-02-21 08:44 | Outpatient (BNV) | payer OTHER, SELFPAY | PROVIDERS: PCP Internal Medicine; Visit Provider Orthopaedic Surgery | DX: M65.311 Trigger thumb, right thumb (principal) | CPT/HCPCS: 26055 ==

== ENCOUNTER 2023-03-06 12:04 | Outpatient (AMB) | payer OTHER, SELFPAY ==
--- NOTE | 2023-03-06 12:06 | A.OFFVIS_ITS ---
Intake Vital Signs 03/06/23 12:08 Height 5 ft 5 in Weight 310 lb BMI 51.6 Intake Visit Reasons: PO RT TR Thumb 02/21/23AR Intake Note: Sarai is a 32 year old right hand dominant female who presents today for a post operative appointment s/p Right Trigger Thumb Release 02/21/23. Patient is doing well with some mild numbness on the mercedes side of the right thumb. She has been working on her ROM. Sutures removed steris applied. Allergies No Known Allergies Allergy (Verified 03/06/23 12:24) HPI PO RT TR Thumb 02/21/23AR HPI Details Lise is a 32 year old woman who presents S/P right trigger thumb release, DOS: 02/21/23. She says she is doing well and no longer has any locking or catching. She complains of numbness in the volar aspect of her thumb, but is unsure if this is caused by her dressings or not. She says she had some tightness initially in her hand but this improved with gentle motion once her dressing was removed. She is a member of a bowling league and wants to know about her restrictions. She says that she can bowl with her left hand for a while. 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 History of thyroid cancer HLD (hyperlipidemia) HTN (hypertension) Hypocalcemia Morbid obesity with BMI of 50.0-59.9, adult Onychomycosis of multiple toenails with type 1 diabetes mellitus Postoperative hypothyroidism Proteinuria Type 1 diabetes mellitus with retinopathy Vitamin D deficiency Surgical History History of dental surgery History of foot surgery Hx of thyroidectomy Family History Father Myocardial infarction Pacemaker Mother Pulmonary embolism High cholesterol Social History Household Members: Spouse Housing: House Patient Tobacco Use Status: Never used Tobacco e-Cigarette/Vaping Use: Never Used Second Hand Smoke Exposure: No service: No Current occupational status: employed 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 Sutures removed and Steri-Strips applied She can make a fist and extend all her digits No locking or catching She has some new decreased sensation correction up the pad of her thumb, to the proximal pad of her thumb, mostly over the proximal phalanx. 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 Right trigger thumb, S/P release DOS: 02/21/23 The patient appears to be doing well post-operatively I educated her about the post-operative course She has some new decreased sensation mostly to the proximal pad of her thumb, mostly over the proximal phalanx. She has normal sensation to the distal aspect of her thumb and thinks this may be improving since her dressing was removed I discussed activity modifications, she is to lift nothing heavier than a cellphone for the next two weeks. This including bowling balls or hair dryers She will perform gentle ROM exercises at home She should avoid any underwater activities for the next 5 days She should gently massage about the incision site to reduce the risk of hypersensitivity She will follow up in 4-6 weeks to assess range of motion and the numbness in her thumb. If this resolves she may cancel this appointment Scribed for Rachel Pedroza MD by Ryan Ward, director medical science, on 03/06/23 at 12:20 PM, EST. 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
[2023-03-06 12:08] VITALS: BMI 51.6
== END 2023-03-06 12:24 | disposition home or self-care (01) ==
PROVIDERS: PCP Internal Medicine; Visit Provider Orthopaedic Surgery
DX: M65.311 Trigger thumb, right thumb (principal); E10.49 Type 1 diabetes mellitus with other diabetic neurological complication
CPT/HCPCS: 99024

== ENCOUNTER → 2023-03-06 12:04 | Outpatient (BNVA) | payer OTHER, SELFPAY | PROVIDERS: PCP Internal Medicine; Visit Provider Orthopaedic Surgery ==

== ENCOUNTER 2023-03-15 07:57 | Outpatient (AMB) | payer OTHER, SELFPAY ==
[2023-03-15 08:00] VITALS: BP 128/76; BMI 57.4
--- NOTE | 2023-03-15 08:00 | A.OFFPC_ITS ---
Vital Signs 03/15/23 08:00 Height 5 ft 5 in Weight 345 lb BMI 57.4 BP 128/76 Blood Pressure Location Rt brachial Position Sitting Intake Visit Reasons: annual PE Intake Note: pt is here for annual exam Cognos Developer Required: No Accompanied by: Self / Same As Patient Allergies No Known Allergies Allergy (Verified 06/21/23 00:29) Medication List - Last Reconciled 03/15/23 by Alisson Magaña MD atorvastatin 40 mg PO DAILY calcium citrate-vitamin D3 315 mg-6.25 mcg (250 unit) (Citracal + Vitamin D Maximum) 2 tabs PO DAILY cholecalciferol (vitamin D3) 50 mcg PO DAILY 90 days insulin lispro (Humalog U-100 Insulin) 150 units (1.5 mL) subcut DAILY lisinopril 2.5 mg PO DAILY 30 days pen needle, diabetic (BD Ultra-Fine Micro Pen Needle) 8x daily Tirosint (levothyroxine) 175 mcg PO DAILY 30 days NS Tobacco use date assessed: 12/07/22 Dental Screening Dental Screen Date: 03/15/23 Did you have a dental visit in the last 12 months?: Yes Did you have a dental problem in the last 6 months where you did not have access to dental care?: No Was dental information given to patient?: Patient has dentist HPI annual PE HPI Details 33-year-old Lady here today for her phys ical exam. She has type 1 diabetes mellitus, currently followed by endocrine clinic. Up-to-date with her diabetes retinopathy screening, done earlier this year [facility]. She had history of papillary thyroid carcinoma status post right thyroid lobectomy 03/2020, with postoperative hypothyroidism. Complains of recurrent right axillary cyst , draining clear fluid, now also with similar lesions on posterior neck. Has been on several courses of antibiotics, but lesions keep recurring. She also has been having persistent pain in her right shoulder, no history of trauma, is right-hand and frequently uses her right arm. 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 Hypocalcemia Postoperative hypothyroidism History of thyroid cancer Vitamin D deficiency HLD (hyperlipidemia) HTN (hypertension) Onychomycosis of multiple toenails with type 1 diabetes mellitus Surgical History S/P trigger finger release History of foot surgery Hx of thyroidectomy History of dental surgery Family History Father Myocardial infarction Pacemaker Mother Pulmonary embolism High cholesterol Social History Household Members: Spouse Housing: House Patient Tobacco Use Status: Never used Tobacco e-Cigarette/Vaping Use: Never Used Second Hand Smoke Exposure: No service: No Current occupational status: employed 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 1. Little interest or pleasure in doing things: not at all 2. Feeling down, depressed, or hopeless: not at all 3. Trouble falling or staying asleep, or sleeping too much: several days 4. Feeling tired or having little energy: several days 5. Poor appetite or overeating: not at all 6. Feeling bad about yourself - or that you are a failure or have let yourself or your family down: not at all 7. Trouble concentrating on things, such as reading the newspaper or watching television: not at all 8. Moving or speaking so slowly that other people could have noticed. Or the opposite - being so fidgety or restless that you have been moving around a lot more than usual: not at all 9. Thoughts that you would be better off or of hurting yourself in some way: not at all Total score: 2 Depression Screening Interpretation: Negative 98530 - PHQ-9 Billing: Yes Source: Developed by Drs. Gonzales Adam, Kary Mcclellan, Joshua Longoria and colleagues, with an educational luis from [employer] Thrive Questionnaire Date Thrive assessed: 03/15/23 I am a: Patient What is your living situation today?: I have a steady place to live Within the past 12 months, did the food you bought not last and you didn't have the money to get more?: Never true Within the past 12 months, did you worry whether your food would run out before you got money to buy more?: Never true Do you have trouble paying for medicines?: No Do you have trouble getting transportation to medical appointments?: No Do you have trouble paying your heating and electricity bill?: No Do you have trouble taking care of your child, family member or friend?: No Do you have trouble with day-to-day activities such as bathing, preparing meals, shopping, managing finances, etc.?: No Are you currently unemployed and looking for a job?: No Are you interested in more education?: No Please select the resources that you would like help with: None Currently or been in a relationship where the following occur: no concerns reported BALDO-7 AMB Questionnaire BALDO-7 Date BALDO - 7 assessed: 03/15/23 Feeling nervous, anxious, or on edge: 0 = Not at all Not being able to stop or control worryin = Not at all Worrying too much about different things: 0 = Not at all Trouble relaxin = Not at all Being so restless that it is hard to sit still: 0 = Not at all Becoming easily annoyed or irritable: 0 = Not at all Feeling afraid as if something awful might happen: 0 = Not at all Total BALDO-7 score (0-4 normal; 5-9 mild; 10-14 moderate; 15-21 severe): 0 Source: Developed by Drs. Gonzales Adam, Kary Mcclellan, Joshua Longoria and colleagues, with an educational luis from [employer] BALDO-7 Assessment Billing BALDO-7 Assessment Tool: BALDO-7 Assessment 70136 Review of Systems Const Denies excessive sweating, Denies fatigue and Denies headache(s) Eyes Denies blurry vision and Denies diplopia ENT Denies change in voice, Denies dysphagia, Denies headache(s) and Denies hoarseness Card Denies chest pain, Denies irregular heart rhythm, Denies dyspnea and Reports other Resp Denies cough and Denies dyspnea GI Denies abdominal pain, Denies change in bowel habits, Denies dysphagia, Denies diarrhea and Denies nausea Reports no additional complaints Musc Reports as per HPI, Denies myalgias, Denies joint swelling, Denies muscle cramps, Denies numbness and Denies tingling Skin/Breast Reports as per HPI, Denies breast skin changes, Denies breast pain, Denies breast mass, Denies hirsutism and Denies alopecia Neuro Denies headache(s), Denies numbness and Denies tingling Psych Reports no additional complaints Endo Denies cold intolerance, Denies excessive sweating, Denies fatigue, Denies heat intolerance, Denies polydipsia and Denies polyuria Bryn/Lymph Denies easy bruising Aller/Immun Reports no additional complaints Physical exam (Primary Care) Vital Signs: Last Vital Signs BP 128/76 03/15/23 08:00 BMI result Body Mass Index 57.4 Tobacco/Smoking Status: Tobacco use Status Tobacco use date assessed 12/07/22 03/15/23 08:03 Patient Tobacco Use Status Never used Tobacco 03/15/23 08:03 e-Cigarette/Vaping Use Never Used 03/15/23 08:03 PHQ-9: PHQ-9 Score PHQ-9: Total score 3 03/15/23 09:02 Depression Screening Interpretation: Negative Thrive Assessment: Date of Thrive Assessment Date Thrive assessed 03/15/23 03/15/23 09:02 Currently or been in a relationship where the following occur: no concerns reported Const General: cooperative, comfortable and no acute distress Nutritional Appearance: obese morbidly obese Orientation/consciousness: patient oriented x3 HENMT Ears: hearing grossly normal bilaterally, external ears normal, TM's normal bilaterally and EAC's normal General nose exam: Normal external nose present and No nasal discharge present Mouth: Normal oral and palatal mucosa present, oropharynx normal and moist mucous membranes Eyes General: appearance normal, both eyes and all related structures Conjunctivae: conjunctivae normal Pupils: Equal, round and reactive pupils present EOM: EOMs intact bilaterally Neck Other: Palpable nontender lesion on right posterior cervical area Neck: Yes full ROM, Yes no lymphadenopathy and Yes supple Chest Breast/axilla palpation: normal palpation of the breasts Resp Effort & Inspection: normal respiratory effort and able to speak in complete sentences Auscultation: clear to auscultation bilaterally Cardio Rate: regular rate Rhythm: regular rhythm Heart sounds: S1 normal heart sound present and S2 normal heart sound present GI Palpation (GI): Soft to palpation, nontender and no masses Auscultation: normal bowel sounds Other: Declines exam, states that she sees her own OBGYN Back/Spine/Pelvis Cervical Spine: cervical ROM normal Thoracic/Lumbar Spine: thoracic and lumbar spine normal to inspection Skin Other: Nodular nontender lesion in right axillary area, with no active drainage Neuro General: patient oriented x3, gait normal, tone normal, moves all extremities, Normal light touch and pain sensation and no focal motor deficits Cranial nerves: Yes Equal, round and reactive pupils present Cognition (Neuro): normal cognition Gait exam (Neuro): Normal gait present Motor exam (neuro): 5/5 motor strength present throughout Extrem Other: Limited abduction of right arm due to pain in right shoulder on abduction more than 90 degrees, no gross bone deformity or joint swelling seen General: Yes no joint enlargement, Yes no pedal edema, Yes no calf tenderness and Yes normal gait Psych Appearance: grossly normal Mental Status: mental status grossly normal Speech and movement: Normal speech and movement present Affect: normal affect Attitude: cooperative Thought process: Normal thought process present Assessment and Plan Assessment & Plan (1) Annual visit for general adult medical examination with abnormal findings: Code(s): Z00.01 - Encounter for general adult medical examination with abnormal findings Plan: Patient has labs already ordered, Recommended dental visit every 6 months and yearly eye exams. Take adequate calcium in diet and vitamin-D 3 at 2000 IU per cap once a day, in addition to weight-bearing exercises to help maintain good muscle tone and weight control. Instructed to do self-breast exam, and recommended to get yearly mammogram, starting at age 40. She states that she sees her own OBGYN. Declines vaccines, but has had pneumonia vaccine and Tdap in the past (2) Axillary abscess: Code(s): L02.419 - Cutaneous abscess of limb, unspecified (3) Skin lesion of neck: Code(s): L98.9 - Disorder of the skin and subcutaneous tissue, unspecified Plan: Referred for surgical consult (4) Right shoulder pain: Code(s): M25.511 - Pain in right shoulder Qualifiers: Chronicity: chronic Qualified Code(s): M25.511 - Pain in right shoulder; G89.29 - Other chronic pain Plan: No improvement with conservative measures, referral for physical therapy ordered (5) Morbid obesity with BMI of 50.0-59.9, adult: Code(s): E66.01 - Morbid (severe) obesity due to excess calories; Z68.43 - Body mass index [BMI] 50.0-59.9, adult Plan: Encouraged to adhere to healthy eating habits, Mediterranean diet recommended, due at least a 15 minute cardio workout every day and increase as tolerated, has been referred before to weight management clinic but declines bariatric surgery. (6) Type 1 diabetes mellitus with retinopathy: Code(s): E10.319 - Type 1 diabetes mellitus with unspecified diabetic retinopathy without macular edema Plan: Currently on insulin lispro followed at endocrine clinic. Up-to-date with her diabetes retinopathy exam and sees electric cutter operator yearly. (7) Postoperative hypothyroidism: Code(s): E89.0 - Postprocedural hypothyroidism Plan: Currently on Tirosint, followed at endocrine clinic Orders: Orders PT Evaluation and Treatment 03/15/23 M25.511 - Pain in right shoulder Referrals General Surgery Referral L02.419 - Cutaneous abscess of limb, unspecified, L98.9 - Disorder of the skin and subcutaneous tissue, unspecified Coding Level of Care Code Est Pt Prev Care 18-39y(69639) Diagnoses Annual visit for general adult medical examination with abnormal findings Z00.01 Axillary abscess L02.419 Skin lesion of neck L98.9 Chronic right shoulder pain M25.511; G89.29 Chronicity: chronic Morbid obesity with BMI of 50.0-59.9, adult E66.01; Z68.43 Type 1 diabetes mellitus with retinopathy E10.319 Postoperative hypothyroidism E89.0 Additional Codes BALDO-7 Assessment Billing - BALDO-7 Assessment Tool: BALDO-7 Assessment [id number] ([id number])
== END 2023-03-15 08:56 | disposition home or self-care (01) ==
PROVIDERS: Visit Provider Internal Medicine
DX: Z00.00 Encounter for general adult medical examination without abnormal findings (principal); E66.01 Morbid (severe) obesity due to excess calories; E10.319 Type 1 diabetes mellitus with unspecified diabetic retinopathy without macular edema; Z68.43 Body mass index [BMI] 50.0-59.9, adult; L02.419 Cutaneous abscess of limb, unspecified; L98.9 Disorder of the skin and subcutaneous tissue, unspecified; M25.511 Pain in right shoulder; G89.29 Other chronic pain; E89.0 Postprocedural hypothyroidism
CPT/HCPCS: 99395

== ENCOUNTER 2023-03-22 10:58 | Outpatient (AMB) | payer OTHER, SELFPAY ==
--- NOTE | 2023-03-22 11:03 | MHC.OFFVIS ---
Intake Vital Signs 03/22/23 11:08 Height 5 ft 5 in Weight 343 lb BMI 57.1 BP 173/81 H Blood Pressure Location Rt brachial Position Sitting Pulse 93 Intake Visit Reasons: axillary abscess Intake Note: Patient referred for abscess on Lt axilla X1wk. C/o irritation when applying deodorant. Was placed on Doxy and Cephalexin course. Finished abx's on 03-14-23. C/o abscess on post neck present all summer. Inflammation around it improved with abx. Independent Video Producer Required: No Accompanied by: Self / Same As Patient Allergies No Known Allergies Allergy (Verified 03/22/23 11:06) HPI HPI Comments History of Present Illness Details Patient presents for evaluation of a chronically draining left axillary cyst as well of a similar process involving right posterior neck. Patient has had long antibiotic trials for these processes. Because of persistence of drainage which is no longer purulent she presents here for further evaluation. Chart was reviewed patient evaluated. 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 Hypocalcemia Postoperative hypothyroidism History of thyroid cancer Vitamin D deficiency HLD (hyperlipidemia) HTN (hypertension) Onychomycosis of multiple toenails with type 1 diabetes mellitus Surgical History S/P trigger finger release History of foot surgery Hx of thyroidectomy History of dental surgery Family History Father Myocardial infarction Pacemaker Mother Pulmonary embolism High cholesterol Social History Household Members: Spouse Housing: House Patient Tobacco Use Status: Never used Tobacco e-Cigarette/Vaping Use: Never Used Second Hand Smoke Exposure: No service: No Current occupational status: employed 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 Neck Other: Posterior neck demonstrates a similar chronically draining sinus tract consistent with hidradinitis suppurative. No evidence of purulence or abscess Extrem Other: Patient has a chronically draining small sinus involving the left axilla. No purulence expressed. No abscess. Chronic changes of hidradinitis suppurative Assessment & Plan Assessment & Plan (1) Hidradenitis suppurativa: Code(s): L73.2 - Hidradenitis suppurativa Plan Reviewed with the patient the hidradinitis suppurative findings. At present, no acute surgical interventions required. Patient will see me in in couple weeks time for follow-up or p.r.n. Coding Level of Care Code New Pt Level 4 (93585) Diagnoses Hidradenitis suppurativa L73.2
[2023-03-22 11:08] VITALS: BP 173/81; PULSE 93; BMI 57.1
== END 2023-03-22 11:32 | disposition home or self-care (01) ==
PROVIDERS: PCP Internal Medicine; Visit Provider Surgery
DX: L73.2 Hidradenitis suppurativa (principal)
CPT/HCPCS: 99204

== ENCOUNTER → 2023-03-22 10:58 | Outpatient (BNVA) | payer OTHER, SELFPAY | PROVIDERS: PCP Internal Medicine; Visit Provider Surgery ==

== ENCOUNTER 2023-04-01 10:39 | Outpatient (AMB) | payer OTHER, SELFPAY ==
--- NOTE | 2023-04-01 10:40 | A.OFFVIS_ITS ---
Intake Vital Signs 04/01/23 10:49 Height 5 ft 5 in Weight 340 lb BMI 56.6 BP 137/78 Blood Pressure Location Lt brachial Position Sitting Pulse 94 Intake Visit Reasons: axillary abscess Intake Note: Patient here to f/u on lt axilla abscess. Reports scab formed. She is afraid to pick scab off. Silver nitrate helped. Photocomposing Machine Operator Required: No Accompanied by: Self / Same As Patient Allergies No Known Allergies Allergy (Verified 04/01/23 10:51) HPI HPI Comments History of Present Illness Details Patient presents for follow-up for her hidradinitis suppurative of left axilla. She has had modest improvement. 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 Hypocalcemia Postoperative hypothyroidism History of thyroid cancer Vitamin D deficiency HLD (hyperlipidemia) HTN (hypertension) Onychomycosis of multiple toenails with type 1 diabetes mellitus Surgical History S/P trigger finger release History of foot surgery Hx of thyroidectomy History of dental surgery Family History Father Myocardial infarction Pacemaker Mother Pulmonary embolism High cholesterol Social History Household Members: Spouse Housing: House Patient Tobacco Use Status: Never used Tobacco e-Cigarette/Vaping Use: Never Used Second Hand Smoke Exposure: No service: No Current occupational status: employed 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 Assessment & Plan Assessment & Plan (1) Hidradenitis suppurativa: Code(s): L73.2 - Hidradenitis suppurativa Plan Reviewed the patient therapeutic options which are conservative with occasional antibiotics and occasional incision and drainage or to consider wide local excision of these 2 areas. At the present time, patient was to continue conservative therapy because of social issues. Should her symptoms progress or worsen in the interim, should instructed to contact me and return the office. All questions were answered. Coding Level of Care Code Est Pt Level 4 (83642) Diagnoses Hidradenitis suppurativa L73.2
[2023-04-01 10:49] VITALS: BP 137/78; PULSE 94; BMI 56.6
== END 2023-04-01 11:01 | disposition home or self-care (01) ==
PROVIDERS: PCP Internal Medicine; Visit Provider Surgery
DX: L73.2 Hidradenitis suppurativa (principal)
CPT/HCPCS: 99214

== ENCOUNTER → 2023-04-01 10:39 | Outpatient (BNVA) | payer OTHER, SELFPAY | PROVIDERS: PCP Internal Medicine; Visit Provider Surgery ==

== ENCOUNTER 2023-04-26 08:00 | Outpatient (RCR) | payer OTHER, SELFPAY ==
--- NOTE | 2023-03-29 09:00 | MHC.PT.EP ---
[facility] [place] Office [place] Office [place] Office [address] [phone] F: [phone] F: [phone] F: [phone] F: [phone] Physical Therapy Plan of Care Date of Evaluation: 03/29/23 Date of Surgery: Diagnosis: R shoulder pain Assessment: Patient is a 32 year old R handed female who presents with s/s consistent with R shoulder pain. 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 Patient past medical history includes DM and obesity. Current impairments include pain, posture, ROM, strength, activity tolerance and functional mobility. Functional limitations include decreased ability to reach, lift, push, pull, sleep, carry and dress. Patient is motivated with good rehab potential. Skilled PT will address impairments and functional limitations in order to achieve goals. Frequency and Duration: The patient will be seen 2x/week for 5 weeks Short Term Goals: I with HEP - 2 weeks Full AROM pain free -3 weeks pain free sleeping - 3 weeks Mud Jack Nozzleman Goals: Strength 4/5 grossly - 5 weeks impingement cluster negative - 5 weeks Restore normal scapulothoracic/glenohumeral rhythm - 5 weeks Treatment Plan: Modalities to reduce pain, spasms and effusion. Manual therapy to restore motion and function. Therapeutic exercise to improve strength and flexibility. Neuromuscular re-education for posture and balance. Therapeutic activities to return to functional activities of daily living. Electronically signed by: Herbert Coates PT Please sign and return to therapist. Thank you for your referral.
--- NOTE | 2023-04-19 08:25 | MHC.PT.OD ---
[facility] [place] Office [place] Office [place] Office [address] Laura Dick [address] [phone] F: [phone] F: [phone] F: [phone] F: [phone] Physical Therapy Daily Note Diagnosis: R shoulder pain Date of Surgery: Date of Evaluation: 03/29/23 Date of Treatment: 04/19/23 Treatments to Date: 7 Cancellations to Date: No Shows to Date: Authorized Visits: Insurance End Date: Precautions/ Contraindications:DM Subjective: I feel broken Pain Score and Location: 4 Objective Flowsheet: Tests & Measures Flexion AAROM to 115. Exercises UBE 4/4 L2.5 pulleys flexion and scaption 4 min each table slides 20x flex and scaption rows 20# 30x (NT) ER and IR 10# 20x (NT) supine cane AAROM flexion and ER 10x10 PB flexion/wall slides 10x10 IR stretching with strap 10x10 hep and pt edu STM and TrP release to LS stat patch used at conclusion with edu. Modalities Assessment: 04/19/23: pt has been having a hard time with progress due to pain. She notes HEP has been challenging as well. She often wakes up in a lot of pain. She has a significant painful arc. She is also discouraged regarding her shoulder as well as her progress has not been to her liking. Due to the difficulty progressing related to managing her pain, I would like to recommend imaging at this time to rule out pathology that is more severe than originally believed such as a cuff tear or significant labral pathology. 04/15/23: pt progressing slowly with skilled PT. I have had to continue to educate into pain free ex. She tends to report increased pain after every exercise due to number of repetitions. Popping clicking reported with resisted adduction. 04/12/23: pt still with pain limiting sets and reps but overall able to do more before painful onset. 04/09/23: pt has been feeling better overall with skilled PT although progress has been slow and modest. we have had to cautiously progress thus far. 04/05/23: scap elevation compensation very present. requires continued edu. address tissue tension manually today. 04/01/23: pt progressing well with skilled PT but needs continued encouragement not to push through pain. we will attempt to progress strength NV. Patient is a 32 year old R handed female who presents with s/s consistent with R shoulder pain. 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 Patient past medical history includes DM and obesity. Current impairments include pain, posture, ROM, strength, activity tolerance and functional mobility. Functional limitations include decreased ability to reach, lift, push, pull, sleep, carry and dress. Patient is motivated with good rehab potential. Skilled PT will address impairments and functional limitations in order to achieve goals. PT Plan: ROM, strength, posture, function, ST/GH rhythm Short Term Goals: I with HEP - 2 weeks Full AROM pain free -3 weeks pain free sleeping - 3 weeks Regulatory Affairs Consultant Goals: Strength 4/5 grossly - 5 weeks impingement cluster negative - 5 weeks Restore normal scapulothoracic/glenohumeral rhythm - 5 weeks Electronically signed by: Herbert Coates, PT
--- NOTE | 2023-07-16 10:14 | MHC.PT.DC ---
[facility] [place] Office [place] Office [place] Office [address] Laura Dick [address] [phone] F: [phone] F: [phone] F: [phone] F: [phone] Physical Therapy Discharge Report Diagnosis: R shoulder pain Date of Surgery: Date of Evaluation: 03/29/23 Date of Discharge: 06/06/23 Treatments to Date: 9 Cancellations to Date: No Shows to Date: Discharge Status: Independent with HEP Recommend MD Follow-up Discharge Summary: 04/26/23: due to lack of sustained progress in skilled PT, we will hold at this time until follow up and/or further imaging. pt has been educated extensively on HEP, posture, pathology and likelihood of continued difficulty with movement and ROM should postural awareness not improve. 04/22/23: pt noting less pain after last visit + use of stat patch. we used the stat patch again today. continue to progress as tolerated with skilled PT 04/19/23: pt has been having a hard time with progress due to pain. She notes HEP has been challenging as well. She often wakes up in a lot of pain. She has a significant painful arc. She is also discouraged regarding her shoulder as well as her progress has not been to her liking. Due to the difficulty progressing related to managing her pain, I would like to recommend imaging at this time to rule out pathology that is more severe than originally believed such as a cuff tear or significant labral pathology. 04/15/23: pt progressing slowly with skilled PT. I have had to continue to educate into pain free ex. She tends to report increased pain after every exercise due to number of repetitions. Popping clicking reported with resisted adduction. 04/12/23: pt still with pain limiting sets and reps but overall able to do more before painful onset. 04/09/23: pt has been feeling better overall with skilled PT although progress has been slow and modest. we have had to cautiously progress thus far. 04/05/23: scap elevation compensation very present. requires continued edu. address tissue tension manually today. 04/01/23: pt progressing well with skilled PT but needs continued encouragement not to push through pain. we will attempt to progress strength NV. Patient is a 32 year old R handed female who presents with s/s consistent with R shoulder pain. 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 Patient past medical history includes DM and obesity. Current impairments include pain, posture, ROM, strength, activity tolerance and functional mobility. Functional limitations include decreased ability to reach, lift, push, pull, sleep, carry and dress. Patient is motivated with good rehab potential. Skilled PT will address impairments and functional limitations in order to achieve goals. Electronically signed by: Herbert Coates, PT Please sign and return to therapist. Thank you for your referral.
== END 2023-07-16 10:15 | disposition home or self-care (01) ==
LOC: HO.PTCHIC 08:00
PROVIDERS: PCP Internal Medicine; Visit Provider Internal Medicine
DX: M25.511 Pain in right shoulder (principal)
CPT/HCPCS: 97110; 97140; 97162

== ENCOUNTER 2023-04-26 09:15 | Outpatient (REF) | payer OTHER, SELFPAY ==
[2023-04-26 11:50] LABS: Estimated Average Glucose 123 mg/dL; Hemoglobin A1c % 5.9 % (<6.0)
[2023-04-26 12:52] LABS: Alanine Aminotransferase 18 U/L (0-31); Anion Gap 13 (12-20); Aspartate Amino Transferase 17 U/L (5-31); Blood Urea Nitrogen 13 mg/dL (9-16); Calcium 9.2 mg/dL (8.4-10.2); Carbon Dioxide 26 mmol/L (22-29); Chloride 102 mmol/L (96-108); Cholesterol 278 mg/dL (<200); Estimated Glomerular Filt Rate > 60; Glucose Fasting 169 mg/dL (60-99); HDL Cholesterol 57 mg/dL (>40); LDL Cholesterol Calculated 209 mg/dL (<100); Potassium 4.1 mmol/L (3.3-5.1); Sodium 137 mmol/L (135-145); Triglycerides 60 mg/dL (<150)
[2023-04-26 12:54] LABS: Thyroid Stimulating Hormone 5.38 uIU/mL (0.32-4.0)
== END 2023-04-26 09:16 | disposition home or self-care (01) ==
LOC: HO.HMGCLDS 09:15
PROVIDERS: PCP Internal Medicine; Visit Provider Internal Medicine
DX: I10 Essential (primary) hypertension (principal); E78.5 Hyperlipidemia, unspecified; E66.01 Morbid (severe) obesity due to excess calories; Z68.43 Body mass index [BMI] 50.0-59.9, adult; E10.319 Type 1 diabetes mellitus with unspecified diabetic retinopathy without macular edema; E10.49 Type 1 diabetes mellitus with other diabetic neurological complication; E89.0 Postprocedural hypothyroidism; Z85.850 Personal history of malignant neoplasm of thyroid
CPT/HCPCS: 36415; 80048; 80061; 83036; 84443; 84450; 84460

== ENCOUNTER 2023-05-02 07:53 | Outpatient (AMB) | payer OTHER, SELFPAY ==
--- NOTE | 2023-05-02 07:55 | A.OFFVIS_ITS ---
Intake Vital Signs 05/02/23 07:57 Height 5 ft 2 in Weight 345 lb 10.957 oz BMI 63.2 BP 114/78 Blood Pressure Location Lt brachial Position Sitting Pulse 94 Pulse Source Pulse Oximeter Intake Visit Reasons: DM/CONFIRMED Intake Note: Patient presents today to follow up on Type 1 Diabetes Mellitus. Previously seen by Dr. Mosquera. Last Diabetic Eye exam:2021 Last Podiatry Visit: 2021 Random Glucose: 118 mg/dl HgA1C: 5.9% 04/26/[address] Supervisor Required: No Accompanied by: Self / Same As Patient Allergies No Known Allergies Allergy (Verified 05/02/23 08:08) Medication List - Last Reconciled 05/02/23 by Gonzales Bedolla MD calcium citrate-vitamin D3 315 mg-6.25 mcg (250 unit) (Citracal + Vitamin D Maximum) 2 tabs PO DAILY cholecalciferol (vitamin D3) 50 mcg PO DAILY 90 days insulin lispro (Humalog U-100 Insulin) 150 units (1.5 mL) subcut DAILY pen needle, diabetic (BD Ultra-Fine Micro Pen Needle) 8x daily Tirosint (levothyroxine) 175 mcg PO DAILY 30 days NS HPI HPI Comments History of Present Illness Details 33 YO Female with PMHx T1DM, PTC s/p hemithyroidectomy and Oswaldo's disease who is seen in F/U. The patient last saw Dr. Mosquera on 01/17/2020 1) T1DM: Initially diagnosed with T1DM at the age of 2. She is currently using the Tandem T-Slim insulin pump and the DEXCOM G6 CGM. Pump/Sensor: Uses Tandem T-Slim insulin pump with Lispro. Does use Control IQ. Pump settings: Basal: 12 am: 1.70 units/hr 5A =1.75 Total Daily Basal Dose: 41units/day ISF: 15 ICR: MN 1:3 3P = 1:4 Goal: 100 Duration of Insulin Action: 3 hours She is currently using a total daily dose of 118 units of insulin, with 35% basal and 58% bolus. She changes her site Q 2-3 days. Has DEXCOM G6 Sensor. Download shows she is using the sensor 93% of the time. Average glucose 133 with standard deviation of 34 and G mi of 6.5%. 90% range with a % hyperglycemia and 2% hypoglycemia and 1% very low. Most of the hypoglycemia is occurring late evening Most recent A1C: 5.9% 04/26/2023, . She does have occasional lows 4 X/ wk as well as after her lunchtime bolus or dinner bolus . She is symptomatic at these times and treats according to the rule of 15's. Denies family history of autoimmunity. Has eyes checked yearly, last eye exam Jan 2023 , she reports there is concern for retinopathy. She sees Dr. Houser at [facility]. Denies Neuropathy. Does have stocking glove pattern distribution of paresthesias. No Nephropathy, off TOMASZ/ARB as she was trying to conceive. UAC 3.4 03/11/2021. Has HLD, off statin as she was trying to conceive. LDL 77 03/11/2021. Denies CAD Has had diabetes education. Diet/Carb counting: Is comfortable with carb counting. She recently stopped her OCP and is interested in conceiving in the near future. 2) Thyroid Cancer: The patient was noted to have a goiter on exam and underwent thyroid US which revealed a multinodular thyroid. She was scheduled for FNA boipsy 08/06/2019 which revealed a diffusely heterogenous gland consistent with Oswaldo's disease, with multiple pseudonodules. There was a true nodule present in the R mid pole measuring 1.0 cm with some peripheral calcification. FNA biopsy of this nodule was performed with official Cytology reading [place] Category IV Suspicious for follicular neoplasm. I did receive a call from the Pathologist Dr. Bunny Connor on 08/10/2019 who stated that he felt this was more consistent with a [place] Category V, suspicious for PTC, and that he felt strongly the lesion should be removed. 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 0/2 lymph nodes were positive. This was [id number]. She underwent a completion thyroidectomy 03/23/2020. Path revealed 2 foci of PTC measuring 1.6 cm and 0.2 cm. The 1.6 cm foci did have ill defined margins as well as capsular invasion. She did undergo I131 ablation that was thyrogen stimulated 08/24/2020 with 29.1 mCi of I131. 08/20/20 TSH 45.3, TG <0.1 with TgAB <1. WBS subsequent to this treatment revealed faint uptake within the neck, and a lack of physiologic activity throughout the body, which was concerning for a high iodine load prior to treatment. She had labs completed 10/01/2020 which revealed a TSH of 16.71, TG <0.1 and TG antibody <1. Her dose of Levothyroxine was increased to 200 mcg PO daily. Labs repeated 01/07/2021 revealed a TSH of 3.81, TG <0.1 and TgAB <1. Her dose was changed to Tirosint 200 mcg PO daily at that time due to suspected absorption issues. She then became slightly hyperthyroid so her Tirosint was decreased to 175 mcg PO daily. She had an US head and neck 12/07/2021 which revealed no abnormality. US Head and Neck: 12/07/2021 FINDINGS: THYROID BED: Prior thyroidectomy. No residual thyroid tissue demonstrated in the thyroid bed. No cystic or solid nodules demonstrated in the thyroid bed. RIGHT NECK SOFT TISSUES: Scattered architecturally normal nodes are present. The nodes show normal fatty hilus, normal cortical thickness, and no cystic change or calcification. No abnormal color flow. The largest nodes are as follows: Level IB: 0.76 x 0.45 x 0.72 cm.? Normal dianelys architecture. Level IA: 0.72 x 0.60 x 0.52 cm.? Normal dianelys architecture. LEFT NECK SOFT TISSUES: Scattered architecturally normal nodes are present. The nodes show normal fatty hilus, normal cortical thickness, and no cystic change or calcification. No abnormal color flow. No lymph nodes seen on the left. US/US soft tiss head and/or neck IMPRESSION: 1. Benign right neck lymph nodes. ? No abnormal left neck lymph nodes seen. ? 2. If clinically indicated further evalu ation of the neck soft tissues and nodes may be performed with CT soft tissue neck with intravenous contrast. Labs: Laboratory Tests 12/15/22 12/15/22 12/15/22 10:55 10:57 10:57 Creatinine 0.79 Estimated GFR > 60 Hemoglobin A1c % 5.8 LDL Cholesterol Di rect LDL Cholesterol, C alc TSH 2.19 Free T4 PTH Intact Calcium (PTH Intac t) Microalb/Creat Rat io 8.7 12/15/22 12/15/22 10:57 10:57 Creatinine Estimated GFR Hemoglobin A1c % LDL Cholesterol Di rect 141 H LDL Cholesterol, C alc 141 TSH Free T4 1.00 PTH Intact 31 Calcium (PTH Intac t) 8.7 Microalb/Creat Rat io PFSH Medical History (Updated 04/26/23 @ 16:58 by Alisson Magaña MD) Chronic right shoulder pain Proteinuria Morbid obesity with BMI of 50.0-59.9, adult 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 Hypocalcemia Postoperative hypothyroidism History of thyroid cancer Vitamin D deficiency HLD (hyperlipidemia) HTN (hypertension) Onychomycosis of multiple toenails with type 1 diabetes mellitus Surgical History S/P trigger finger release History of foot surgery Hx of thyroidectomy History of dental surgery Family History Father Myocardial infarction Pacemaker Mother Pulmonary embolism High cholesterol Social History Household Members: Spouse Housing: House Patient Tobacco Use Status: Never used Tobacco e-Cigarette/Vaping Use: Never Used Second Hand Smoke Exposure: No service: No Current occupational status: employed 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 Absence of acromegalic features. Neck exam reveals healed scar status post thyroidectomy. There are no palpable lymph nodes . No carotid bruits present. Lungs CTA. Heart S1 S2, Reg R/R. No M/R/ G. Skin exam reveals absence of vitiligo or acanthosis nigricans. Abdominal exam reveals Soft NT/ND with NA BS. No organomegaly present. Neck Other: . Extrem Other: Visual exam of foot performed. No ulcerations or open lesions. No onchomycosis, no callouses.Pulses 2 + distally Sensation intact to monofilament exam. Vibratory sensation sensed is intact with 128 Hz tuning fork Assessment & Plan Assessment & Plan (1) 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: Code(s): E10.49 - Type 1 diabetes mellitus with other diabetic neurological complication Plan: Is a 33-year-old white female with a history of type 1 diabetes being controlled with A T-slim insulin pump control IQ with excellent glycemic control and known microvascular complications namely retinopathy. She does have some episodes of hypoglycemia. Plan is to loosen the insulin: Carbohydrate to 1:4.5 at 14:00. 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 0/2 lymph nodes were positive. This was [id number]. She underwent a completion thyroidectomy 03/23/2020. Path revealed 2 foci of PTC measuring 1.6 cm and 0.2 cm. The 1.6 cm foci did have ill defined margins as well as capsular invasion. She did undergo I131 ablation that was thyrogen stimulated 08/24/2020 with 29.1 mCi . Subsequent neck ultrasound did not show any evidence of disease and thyroglobulin some been undetectable. Recent TSH was elevated. Plan is to increase Tirosint to 188 mcg . Will recheck TSH and free T4 in 6 weeks. Will also order neck ultrasound. Patient told not to become until TSH is < 2.5 Orders: Orders Free T4 (Free Thyroxine) 6 Weeks Z85.850 - Personal history of malignant neoplasm of thyroid US thyroid Today Z85.850 - Personal history of malignant neoplasm of thyroid Thyroid Stimulating Hormone 6 Weeks Z85.850 - Personal history of malignant neoplasm of thyroid Medications: New Tirosint (levothyroxine) Take 100 ug with 88 ug to make 188 ug daily 100 mcg PO DAILY 30 caps 11RF NS Tirosint (levothyroxine) Take 88ug with 100 ug =188 ug daily 88 mcg PO DAILY 30 caps 5RF NS Discontinued Tirosint (levothyroxine) Discontinued Reason: Doctor's Order 175 mcg PO DAILY 30 days 30 caps 3RF NS Coding Level of Care Code Est Pt Level 4 (94720) Diagnoses 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 E10.49 History of thyroid cancer Z85.850
[2023-05-02 07:57] VITALS: BP 114/78; PULSE 94; BMI 63.2
[2023-05-02 08:11] LABS: Glucose, Whole Blood 118 mg/dL (60-115)
== END 2023-05-02 08:49 | disposition home or self-care (01) ==
PROVIDERS: PCP Internal Medicine; Referring Provider Internal Medicine; Visit Provider Internal Medicine Endocrinology, Diabetes & Metabolism
DX: E10.49 Type 1 diabetes mellitus with other diabetic neurological complication (principal); Z85.850 Personal history of malignant neoplasm of thyroid
CPT/HCPCS: 99214

== ENCOUNTER → 2023-05-02 07:53 | Outpatient (BNVA) | payer OTHER, SELFPAY | PROVIDERS: PCP Internal Medicine; Referring Provider Internal Medicine; Visit Provider Internal Medicine Endocrinology, Diabetes & Metabolism | DX: E10.49 Type 1 diabetes mellitus with other diabetic neurological complication (principal); E10.319 Type 1 diabetes mellitus with unspecified diabetic retinopathy without macular edema; E89.0 Postprocedural hypothyroidism; E66.01 Morbid (severe) obesity due to excess calories; Z68.44 Body mass index [BMI] 60.0-69.9, adult; Z85.850 Personal history of malignant neoplasm of thyroid; Z79.4 Long term (current) use of insulin; Z96.41 Presence of insulin pump (external) (internal) | CPT/HCPCS: 82947 ==

== ENCOUNTER 2023-06-07 10:24 | Outpatient (REF) | payer OTHER, SELFPAY ==
--- NOTE | ~2023-06-07 | US_ITS ---
EXAMINATION: US SOFT TISSUE NECK CLINICAL INFORMATION: Personal history of malignant neoplasm of thyroid. COMPARISON: Ultrasound soft tissue head/neck 12/07/2021. Ultrasound soft tissue head/neck thyroid dated 04/15/2019. TECHNIQUE: Ultrasound of the neck soft tissues is performed with high- frequency alfaro-scale imaging and color Doppler. Limited visualization due to body habitus. FINDINGS: THYROID BED: Prior thyroidectomy. No residual thyroid tissue demonstrated in the thyroid bed. No cystic or solid nodules demonstrated in the thyroid bed. RIGHT NECK SOFT TISSUES: Right level 1B 0.8 x 0.5 x 0.8 cm node with echogenic hilum, previously 0.8 x 0.5 x 0.7 cm. Right level 1B 1.7 x 0.6 x 0.8 cm node with echogenic hilum was not identified on the prior exam. LEFT NECK SOFT TISSUES: Left level 5A 1.8 x 0.9 x 1.4 cm node was not identified on the prior study. This node appears atypical with diffuse internal echoes and cortical thickening. Left level 3 node measures 2.0 x 0.8 x 1.0 cm with echogenic hilum and borderline cortical thickening, not previously identified. US/US soft tiss head and/or neck IMPRESSION: 1. Bilateral cervical nodes as detailed above. Correlation with clinical exam recommended to determine further management. Recommend follow up ultrasound in 3 months. 2. If clinically indicated further evaluation of the neck soft tissues and nodes may be performed with CT soft tissue neck with intravenous contrast.
== END 2023-06-07 10:25 | disposition home or self-care (01) ==
LOC: HO.HMGCX 10:24
PROVIDERS: PCP Internal Medicine; Visit Provider Internal Medicine Endocrinology, Diabetes & Metabolism
DX: Z85.850 Personal history of malignant neoplasm of thyroid (principal)
CPT/HCPCS: 76536

== ENCOUNTER 2023-06-15 11:18 | Outpatient (REF) | payer OTHER, SELFPAY ==
--- NOTE | ~2023-06-15 | XR_ITS ---
EXAMINATION: XR SHOULDER, RIGHT CLINICAL INFORMATION: Right shoulder pain. Limited range of motion. COMPARISON: None available. TECHNIQUE: Three views of the right shoulder. FINDINGS: There is mild acromioclavicular osteoarthritis. Glenohumeral joint is well preserved. No fracture. Alignment is anatomic. Soft tissues are normal with no abnormal calcifications. XR/XR shoulder RT min 2V IMPRESSION: Mild acromioclavicular osteoarthritis. No acute osseous findings.
== END 2023-06-15 11:19 | disposition home or self-care (01) ==
LOC: HO.HMGCX 11:18
PROVIDERS: PCP Internal Medicine; Visit Provider Internal Medicine
DX: M25.511 Pain in right shoulder (principal); G89.29 Other chronic pain
CPT/HCPCS: 73030

== ENCOUNTER 2023-06-21 11:25 | Outpatient (AMB) | payer OTHER, SELFPAY ==
[2023-06-21 11:34] VITALS: BP 118/72; PULSE 71; O2SAT 97; BMI 62.2
--- NOTE | 2023-06-21 11:34 | MHC.PC.OV ---
Vital Signs 06/21/23 11:34 Height 5 ft 2 in Weight 340 lb BMI 62.2 BP 118/72 Blood Pressure Location Rt brachial Position Sitting Pulse 71 Pulse Source Pulse Oximeter Pulse Oximetry (%) 97 Oxygen Delivery Method Room Air Intake Visit Reasons: 3 month follow up Intake Note: pt is here for 3 month f/u, shoulder no relief with PT Ram Car Operator Required: No Accompanied by: Self / Same As Patient Allergies No Known Allergies Allergy (Verified 06/25/23 03:14) Medication List - Last Reconciled 06/25/23 by Alisson Magaña MD cholecalciferol (vitamin D3) 50 mcg PO DAILY 90 days insulin lispro (Humalog U-100 Insulin) 150 units (1.5 mL) subcut DAILY pen needle, diabetic (BD Ultra-Fine Micro Pen Needle) 8x daily Tirosint (levothyroxine) 100 mcg PO DAILY NS Tirosint (levothyroxine) 88 mcg PO DAILY NS Tobacco use date assessed: 06/21/23 Dental Screening Dental Screen Date: 06/21/23 Did you have a dental visit in the last 12 months?: Yes Did you have a dental problem in the last 6 months where you did not have access to dental care?: No Was dental information given to patient?: Patient has dentist HPI 3 month follow up HPI Details 33-year-old lady with type 1 diabetes mellitus, hypothyroidism, here today complaining of chronic pain in her shoulder joint. Has been getting physical therapy for the last several weeks, with out any improvement of shoulder pain , mainly on the anterior aspect. MRI has been ordered but has been declined by insurance. X-ray of right shoulder joint showed presence of acromioclavicular arthritis . No improvement with conservative measures. 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 Hypocalcemia Postoperative hypothyroidism History of thyroid cancer Vitamin D deficiency HLD (hyperlipidemia) HTN (hypertension) Onychomycosis of multiple toenails with type 1 diabetes mellitus Surgical History S/P trigger finger release History of foot surgery Hx of thyroidectomy History of dental surgery Family History Father Myocardial infarction Pacemaker Mother Pulmonary embolism High cholesterol Social History Household Members: Spouse Housing: House Patient Tobacco Use Status: Never used Tobacco e-Cigarette/Vaping Use: Never Used Second Hand Smoke Exposure: No service: No Current occupational status: employed 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 Gonzales Adam, Kary Mcclellan, Joshua Longoria and colleagues, with an educational luis from [employer]. Review of Systems Const Denies fatigue and Denies headache(s) Eyes Denies blurry vision ENT Denies headache(s) Card Denies chest pain, Denies irregular heart rhythm, Denies dyspnea and Reports other Resp Denies cough and Denies dyspnea GI Denies abdominal pain, Denies change in bowel habits, Denies diarrhea and Denies nausea Musc Reports as per HPI Neuro Denies headache(s) Psych Reports no additional complaints Endo Denies cold intolerance, Denies fatigue, Denies heat intolerance, Denies polydipsia and Denies polyuria Bryn/Lymph Denies easy bruising Aller/Immun Reports no additional complaints Physical exam (Primary Care) Vital Signs: Last Vital Signs Pulse 71 06/21/23 11:34 BP 118/72 06/21/23 11:34 Pulse Ox 97 06/21/23 11:34 Oxygen Delivery Method Room Air 06/21/23 11:34 BMI result Body Mass Index 62.2 Tobacco/Smoking Status: Tobacco use Status Tobacco use date assessed 06/21/23 06/21/23 11:35 Patient Tobacco Use Status Never used Tobacco 06/21/23 11:35 e-Cigarette/Vaping Use Never Used 06/21/23 11:35 Thrive Assessment: Date of Thrive Assessment Date Thrive assessed 03/15/23 06/21/23 11:35 Const General: cooperative, comfortable and no acute distress Nutritional Appearance: obese morbidly obese Orientation/consciousness: patient oriented x3 Neck Neck: Yes full ROM, Yes no lymphadenopathy and Yes supple Resp Effort & Inspection: normal respiratory effort and able to speak in complete sentences Auscultation: clear to auscultation bilaterally Cardio Rate: regular rate Rhythm: regular rhythm Heart sounds: S1 normal heart sound present and S2 normal heart sound present Back/Spine/Pelvis Cervical Spine: cervical ROM normal Thoracic/Lumbar Spine: thoracic and lumbar spine normal to inspection Neuro General: patient oriented x3, gait normal, tone normal, moves all extremities, Normal light touch and pain sensation and no focal motor deficits Cognition (Neuro): normal cognition Gait exam (Neuro): Normal gait present Motor exam (neuro): 5/5 motor strength present throughout Extrem Other: Limited abduction of right arm due to pain in right AC joint on abduction more than 90 degrees, no gross bone deformity or joint swelling seen General: Yes no joint enlargement, Yes no pedal edema, Yes no calf tenderness and Yes normal gait Psych Appearance: grossly normal Mental Status: mental status grossly normal Speech and movement: Normal speech and movement present Affect: normal affect Attitude: cooperative Thought process: Normal thought process present Assessment and Plan Assessment & Plan (1) Chronic right shoulder pain: Code(s): M25.511 - Pain in right shoulder; G89.29 - Other chronic pain (2) Acromioclavicular joint arthritis: Code(s): M19.019 - Primary osteoarthritis, unspecified shoulder Qualifiers: Laterality: right Qualified Code(s): M19.011 - Primary osteoarthritis, right shoulder Plan Already completed 4 weeks of physical therapy with no improvement, MRI has been ordered but has been denied by insurance. X-ray of right shoulder showed acromioclavicular joint arthritis. Referred orthopedics for further evaluation management, advised to try [id number] diclofenac gel 1% , apply to affected area 4 times a day as needed. Orders: Referrals Orthopedics Referral G89.29 - Other chronic pain, M19.019 - Primary osteoarthritis, unspecified shoulder, M25.511 - Pain in right shoulder Coding Level of Care Code Est Pt Level 3 (78102) Diagnoses Chronic right shoulder pain M25.511; G89.29 Arthritis of right acromioclavicular joint M19.011 Laterality: right
== END 2023-06-21 13:00 | disposition home or self-care (01) ==
PROVIDERS: PCP Internal Medicine; Visit Provider Internal Medicine
DX: M25.511 Pain in right shoulder (principal); G89.29 Other chronic pain; M19.011 Primary osteoarthritis, right shoulder
CPT/HCPCS: 99213

== ENCOUNTER 2023-07-09 08:35 | Outpatient (AMB) | payer OTHER, SELFPAY ==
--- OUTSIDE RECORDS SUMMARY | 2023-07-09 08:36 | XMS_ITS | Continuity of Care Document ---
Author Name Unknown Organization [facility] e Medicine Address [address] [place] [address], 4t [address] [place] [address]- Care Team Providers Care Loss Prevention Analyst Name Role Phone Archana ABDI, Alisson Young Primary Care Physician Encounter [facility] [place] ACCT R [id number] Date(s): 11/05/22 - 06/01/23 [facility] Reproductive Medicine [address] [place] [address], 4th [address] [place] [address]- Attending Physician: Keven ABDI, Beatrice Young Allergies, Adverse Reactions, Alerts No Known Medication Allergies Medications atorvastatin 40 mg oral tablet 1 tablet = 40 mg, By Mouth, Daily, # 30 tablet, 0 Refills, Maintenance, 08/14/19 11:06:00 EST, Tablet Start Date: 08/14/19 Status: Ordered calcitriol 0.25 mcg oral capsule 1 capsule = 0.25 mcg, By Mouth, Daily, Increase to twice daily for numbness and tingling, # 30 capsule, 2 Refills, Maintenance, 03/23/20 16:06:00 EDT, Capsule Start Date: 03/23/20 Stop Date: 06/21/20 Status: Ordered Humalog Kwik Pen sliding scale, Subcutaneous Infusion, 0 Refills, Maintenance, 10/19/19 10:09:00 EDT Start Date: 10/19/19 Status: Ordered Lab draw Lab draw, See Instructions, # 1 each, Refills 0, Tot. Refills 0, Maintenance, Please draw serum calcium, albumin and intact PTH on 03/30/20, 03/23/20 16:08:00 EDT, Supply Start Date: 03/23/20 Status: Ordered Lantus 100 u/ml subcutaneous solution = 40 units, Subcutaneous Infusion, Daily, 0 Refills, Maintenance, 10/19/19 10:04:00 EDT Start Date: 10/19/19 Status: Ordered levothyroxine 75 mcg (0.075 mg) oral tablet 2 tablet = 150 mcg, By Mouth, Daily, # 60 tablet, 0 Refills, Maintenance, 03/23/20 16:13:00 EDT, Tablet Start Date: 03/23/20 Stop Date: 04/22/20 Status: Ordered lisinopril 5 mg oral tablet 5 mg, 1, tablet, By Mouth, Daily, # 30 tablet, Refills 0, Maintenance, 08/14/19 11:07:00 EST Start Date: 08/14/19 Status: Ordered NuvaRing Vaginally, 0 Refills, Maintenance, 08/14/19 11:08:00 EST Start Date: 08/14/19 Status: Ordered Vitamin D3 By Mouth, Daily, 0 Refills, Maintenance, 10/19/19 10:02:00 EDT Start Date: 10/19/19 Status: Ordered Social History Social History Type Response Smoking Status Never (less than 100 in lifetime) entered on: 08/14/19 Sex Patient Care team information Care Team Personnel Name: Archana ABDI , Alisson Young Position: Reference Physician Member Role: PCP Address: Address: [address] [place] [address]- Care Team Related Persons Name: JAY COLLADO Address: [address] [place] [address] Name: ANISH BALES Address: [address] [place] [address] Name: KELECHI CONKLIN Address: [address] [place] [address]
--- OUTSIDE RECORDS SUMMARY | 2023-07-09 08:36 | XMS_ITS | Continuity of Care Document ---
Author Name Unknown Organization [facility] e Medicine Address [address] [place] [address], 4t [address] [place] [address]- Care Team Providers Care Analytical Laboratory Technician Name Role Phone Archana ABDI, Alisson Young Primary Care Physician Encounter [facility] [place] Date(s): 05/02/23 - 06/01/23 [facility] [address] [place] [address], 4th [address] [place], [place] [address] Attending Physician: Nilsa Porter Admitting Physician: Nilsa Porter Referring Physician: AdmtrNilsa Allergies, Adverse Reactions, Alerts No Known Medication [...] Physician Member Role: PCP Address: Address: [address] [place] [address]- Care Team Related Persons Name: JAY COLLADO Address: [address] [place] [address] Name: ANISH BALES Address: home [address] [place] [id number] Name: KELECHI CONKLIN Address: home [address] [place] [address]
--- NOTE | 2023-07-09 08:40 | AM.OFFWIN_ITS ---
Intake Vital Signs 07/09/23 08:43 Height 5 ft 2 in Weight 344 lb BMI 62.9 BP 114/80 Position Sitting Intake Visit Reasons: EP UTI In lobby Intake Note: Patient is here with UTI symptoms for 2 days. Patient Tobacco Use Status: Never used Tobacco Allergies No Known Allergies Allergy (Verified 07/09/23 08:47) Medication List - Last Reconciled 07/09/23 by Rusty Moser MD cholecalciferol (vitamin D3) 50 mcg PO DAILY 90 days insulin lispro (Humalog U-100 Insulin) 150 units (1.5 mL) subcut DAILY pen needle, diabetic (BD Ultra-Fine Micro Pen Needle) 8x daily Tirosint (levothyroxine) 100 mcg PO DAILY NS Tirosint (levothyroxine) 88 mcg PO DAILY NS Do you need a note to return to daycare/school/sports/work: Yes HPI EP UTI In lobby HPI Details Patient is a 33-year-old female who has been having recurrent UTIs since past 6 months She says that usually she do a telemedicine visit and get antibiotic This time her symptoms started yesterday so she came in There is no fever chills no back pain she has slight supra pubic discomfort and urgency of urination Urine analysis patient does have signs of cystitis with leuk esterase 3+ and blood 2+ She has no fever chills nausea or vomiting I am treating her with Macrobid b.i.d. for 7 days We will send urine for culture as well. 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 Hypocalcemia Postoperative hypothyroidism History of thyroid cancer Vitamin D deficiency HLD (hyperlipidemia) HTN (hypertension) Onychomycosis of multiple toenails with type 1 diabetes mellitus Surgical History S/P trigger finger release History of foot surgery Hx of thyroidectomy History of dental surgery Family History Father Myocardial infarction Pacemaker Mother Pulmonary embolism High cholesterol Social History Household Members: Spouse Housing: House Patient Tobacco Use Status: Never used Tobacco e-Cigarette/Vaping Use: Never Used Second Hand Smoke Exposure: No service: No Current occupational status: employed 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 General: Yes no CVA tenderness Back/Spine/Pelvis Back: no CVA tenderness Neuro General: patient oriented x3 Psych Mental Status: mental status grossly normal Results AMB Urinalysis, Automated UA Leukoctes 500 Marisela/uL Last Edit by Hanane Morrison CMA on 07/09/23 08:5 1 UA Nitrite Positive Last Edit by Hanane Morrison CMA on 07/09/23 08:51 UA Urobilinogen 1 mg/dL Last Edit by Hanane Morrison CMA on 07/09/23 08:5 1 UA Protein 0 mg/dL Last Edit by Hanane Morrison CMA on 07/09/23 08:51 UA pH 7.0 Last Edit by Hanane Morrison CMA on 07/09/23 08:51 UA Blood 80 Andrew/uL Last Edit by Hanane Morrison CMA on 07/09/23 08:51 UA Specific Yarnell 1.015 Last Edit by Hanane Morrison CMA on 07/09/23 08:51 UA Ketone Negative Last Edit by Hanane Morrison CMA on 07/09/23 08:51 UA Bilirubin 1 mg/dL Last Edit by Hanane Morrison CMA on 07/09/23 08:51 UA Glucose 0 mg/dL Last Edit by Hanane Morrison CMA on 07/09/23 08:51 Results Reviewed Results Reviewed: Laboratory Last Values Urine pH (Auto) 7.0 07/09/23 08:49 Specific Yarnell (Auto) 1.015 07/09/23 08:49 Urine Protein (Auto) 0 mg/dL 07/09/23 08:49 Glucose (UA)(Auto) 0 mg/dL 07/09/23 08:49 Urine Ketones (Auto) Negative 07/09/23 08:49 Urine Blood (Auto) 80 Andrew/uL 07/09/23 08:49 Urine Nitrite (Auto) Positive 07/09/23 08:49 Urine Bilirubin (Auto) 1 mg/dL 07/09/23 08:49 Urine Urobilinogen (Auto) 1 mg/dL 07/09/23 08:49 Leukocyte Esterase (Auto) 500 Marisela/uL 07/09/23 08:49 Assessment & Plan Assessment & Plan (1) Acute cystitis: Code(s): N30.00 - Acute cystitis without hematuria Qualifiers: Hematuria presence: with hematuria Qualified Code(s): N30.01 - Acute cystitis with hematuria Plan Patient is a 33-year-old female who has been having recurrent UTIs since past 6 months She says that usually she do a telemedicine visit and get antibiotic This time her symptoms started yesterday so she came in There is no fever chills no back pain she has slight supra pubic discomfort and urgency of urination Urine analysis patient does have signs of cystitis with leuk esterase 3+ and blood 2+ She has no fever chills nausea or vomiting I am treating her with Macrobid b.i.d. for 7 days We will send urine for culture as well. Orders: Orders AMB Urinalysis Automated Today Z13.9 - Encounter for screening, unspecified Urine Culture Today N30.00 - Acute cystitis without hematuria Medications: New nitrofurantoin monohyd/m-cryst 100 mg (Macrobid) must administer with a meal/food 100 mg PO Q12H 14 caps 0RF 7 days Coding Level of Care Code Est Pt Level 3 (91309) Diagnoses Acute cystitis with hematuria N30.01 Hematuria presence: with hematuria
[2023-07-09 08:43] VITALS: BP 114/80; BMI 62.9
== END 2023-07-09 09:09 | disposition home or self-care (01) ==
PROVIDERS: PCP Internal Medicine; Visit Provider Internal Medicine
DX: N30.01 Acute cystitis with hematuria (principal); R35.0 Frequency of micturition
CPT/HCPCS: 81003; 99213

== ENCOUNTER 2023-07-09 09:47 | Outpatient (REF) | payer OTHER, SELFPAY | END 2023-07-09 09:48 | disposition home or self-care (01) | LOC: HO.LAB 09:47 | PROVIDERS: Visit Provider Internal Medicine | DX: N30.00 Acute cystitis without hematuria (principal) | CPT/HCPCS: 87086; 87088; 87147; 87186 ==

== ENCOUNTER 2023-07-11 09:16 | Outpatient (AMB) | payer OTHER, SELFPAY ==
--- NOTE | 2023-07-11 09:19 | A.OFFVIS_ITS ---
Intake Vital Signs 07/11/23 09:20 Height 5 ft 2 in Weight 322 lb BMI 58.9 Intake Visit Reasons: Newprob-Primary osteoarthritis, RT shoulder Intake Note: Sarai is a 33 year old right hand dominant male who presents today as a new patient with complaints of right shoulder pain. Patient has tried and failed NSAIDS and Physical Therapy which did not help. Found some releif with Tens unit but releif was only temporary. Patient reports that she has had pain in the right shoulder for about march of 2023, the pain had gradually worsened over time. She is limited with ROM and strength due to pain. He pain has impacted her daily activities. she is interested in MRI. Allergies No Known Allergies Allergy (Verified 07/09/23 08:47) HPI Newprob-Primary osteoarthritis, RT shoulder HPI Details Sarai is a 33 year old Diabetic woman who presents with complaints of right shoulder pain. She has pain with daily activity, worse with motion & overuse. She feels limited in her strength at times, and says this has impacted her ADLs. Her pain began and has been worsening since 03/2023. She is an avid bowler and a member of a bowling league. She says this is difficult for her due to her pain. She has found little to no relief from PT or NSAIDs, and she would like to discuss having an MRI done. She denies any prior injections. 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 Hypocalcemia Postoperative hypothyroidism History of thyroid cancer Vitamin D deficiency HLD (hyperlipidemia) HTN (hypertension) Onychomycosis of multiple toenails with type 1 diabetes mellitus Surgical History S/P trigger finger release History of foot surgery Hx of thyroidectomy History of dental surgery Family History Father Myocardial infarction Pacemaker Mother Pulmonary embolism High cholesterol Social History Household Members: Spouse Housing: House Patient Tobacco Use Status: Never used Tobacco e-Cigarette/Vaping Use: Never Used Second Hand Smoke Exposure: No service: No Current occupational status: employed 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 Cognitive needs: No Hearing needs: No Vision needs: Yes Review of Systems Const All systems reviewed & are unremarkable except as noted in HPI and below Physical Exam Vital Signs: BMI result Body Mass Index 58.9 Const General: no acute distress, alert and awake Orientation/consciousness: patient oriented x3 HEENT Head: Yes normocephalic and Yes atraumatic Eyes EOM: EOMs intact bilaterally Resp Effort & Inspection: normal respiratory effort and able to speak in complete sentences Cardio Jugular venous distension: no JVD Skin General skin exam: turgor normal Rashes: no rashes Neuro General: patient oriented x3 Extrem Other: 5 degrees of external rotation when controlling scapular accommodation compared to 35 on the contralateral side Psych Appearance: grossly normal Affect: normal affect Attitude: cooperative Results Reviewed Results Reviewed: I personally reviewed relevant radiographs. Essentially normal findings Assessment & Plan Assessment & Plan (1) Frozen shoulder: Code(s): M75.00 - Adhesive capsulitis of unspecified shoulder Plan: This is a 33-year-old diabetic with adhesive capsulitis of the right shoulder. She is working with a bilingual trainer. She can afford additional physical therapy and I think that is not only reasonable but she is very active in pushing through her external rotation restrictions. With see her back in about 3-4 months time. I described the diagnosis and what she should expect. I think she is into the thawing phase. MRI not indicated at this time. Plan Scribed for Nikunj Powell MD by Ryan Ward, medical artist, on 07/11/23 at 9:21 AM, EST. Coding Level of Care Code New Pt Level 4 (53602) Diagnoses Frozen shoulder M75.00
[2023-07-11 09:20] VITALS: BMI 58.9
== END 2023-07-11 10:10 | disposition home or self-care (01) ==
PROVIDERS: PCP Internal Medicine; Visit Provider Orthopaedic Surgery
DX: M75.00 Adhesive capsulitis of unspecified shoulder (principal)
CPT/HCPCS: 99212

== ENCOUNTER → 2023-07-11 09:16 | Outpatient (BNVA) | payer OTHER, SELFPAY | PROVIDERS: PCP Internal Medicine; Visit Provider Orthopaedic Surgery ==

== ENCOUNTER 2023-08-23 07:33 | Outpatient (REF) | payer OTHER, SELFPAY ==
[2023-08-23 11:23] LABS: Free T4 (Free Thyroxine) 1.11 ng/dL (0.71-1.85); Thyroid Stimulating Hormone 4.12 uIU/mL (0.32-4.0)
== END 2023-08-23 07:34 | disposition home or self-care (01) ==
LOC: HO.HMGCLDS 07:33
PROVIDERS: PCP Internal Medicine; Visit Provider Internal Medicine Endocrinology, Diabetes & Metabolism
DX: Z85.850 Personal history of malignant neoplasm of thyroid (principal)
CPT/HCPCS: 36415; 84439; 84443

== ENCOUNTER → 2023-08-26 07:45 | Outpatient (BNVA) | payer OTHER, SELFPAY | PROVIDERS: PCP Internal Medicine; Visit Provider Internal Medicine Endocrinology, Diabetes & Metabolism | DX: E10.49 Type 1 diabetes mellitus with other diabetic neurological complication (principal); E78.5 Hyperlipidemia, unspecified; Z85.850 Personal history of malignant neoplasm of thyroid; Z96.41 Presence of insulin pump (external) (internal) | CPT/HCPCS: 82947; 83036 ==

== ENCOUNTER 2023-09-05 14:48 | Outpatient (AMB) | payer OTHER, SELFPAY ==
--- NOTE | 2023-09-05 14:59 | MHC.OFFVIS ---
Intake Intake Visit Reasons: O/V rt shoulder MRI review Intake Note: Sarai is a 33 year old right hand dominant male who presents today for an MRI review of her right shoulder Allergies No Known Allergies Allergy (Verified 08/26/23 08:14) HPI O/V rt shoulder MRI review HPI Details Still with right hsoulder pain and stiffness. Is doing home exercises and is having right shoulder pain recently. She is diabetic but well-controlled. 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 Hypocalcemia Postoperative hypothyroidism History of thyroid cancer Vitamin D deficiency HLD (hyperlipidemia) HTN (hypertension) Onychomycosis of multiple toenails with type 1 diabetes mellitus Surgical History S/P trigger finger release History of foot surgery Hx of thyroidectomy History of dental surgery Family History Father Myocardial infarction Pacemaker Mother Pulmonary embolism High cholesterol Social History Household Members: Spouse Housing: House Patient Tobacco Use Status: Never used Tobacco e-Cigarette/Vaping Use: Never Used Second Hand Smoke Exposure: No service: No Current occupational status: employed 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 Resp Other: No audible wheezing Effort & Inspection: normal respiratory effort Cardio Other: Radial pulse palpable with no rythmic abnormalities Back/Spine/Pelvis Cervical Spine: normal cervical lordosis Skin General skin exam: no rashes or lesions noted Neuro General: no focal motor deficits Extrem Other: ~5 deg ER right shoulder 25 deg on left but with discomfort Psych Appearance: grossly normal and well kempt Mental Status: mental status grossly normal Speech and movement: Normal speech and movement present Affect: normal affect Attitude: cooperative Results Reviewed Results Reviewed: MRI shows intra-substance small supraspinatus tear Assessment & Plan Assessment & Plan (1) Adhesive capsulitis of right shoulder: Code(s): M75.01 - Adhesive capsulitis of right shoulder Plan: I recommend resumption of PT and inclusion of left shoulder in exercises. May consider embolization with dr Livingston. Referral made Orders: Orders PT Evaluation and Treatment Today M75.01 - Adhesive capsulitis of right shoulder Referrals Interventional Radiology Referral M75.01 - Adhesive capsulitis of right shoulder Coding Level of Care Code Est Pt Level 4 (53894) Diagnoses Adhesive capsulitis of right shoulder M75.01
== END 2023-09-05 15:35 | disposition home or self-care (01) ==
PROVIDERS: PCP Internal Medicine; Visit Provider Orthopaedic Surgery
DX: M75.01 Adhesive capsulitis of right shoulder (principal)
CPT/HCPCS: 99213

== ENCOUNTER → 2023-09-05 14:48 | Outpatient (BNVA) | payer OTHER, SELFPAY | PROVIDERS: PCP Internal Medicine; Visit Provider Orthopaedic Surgery ==

== ENCOUNTER 2023-10-08 09:04 | Outpatient (AMB) | payer OTHER, SELFPAY ==
[2023-10-08 08:49] VITALS: BP 126/88; PULSE 93; O2SAT 96; BMI 63.5
--- NOTE | 2023-10-08 08:49 | A.OFFPC_ITS ---
Vital Signs 10/08/23 08:49 Height 5 ft 2 in Weight 347 lb 2 oz BMI 63.5 BP 126/88 Blood Pressure Location Lt brachial Position Sitting Pulse 93 Pulse Source Pulse Oximeter Pulse Oximetry (%) 96 Oxygen Delivery Method Room Air Intake Visit Reasons: Blocked ear/wax buildup left ear Allergies No Known Allergies Allergy (Verified 10/08/23 08:51) Tobacco use date assessed: 06/21/23 Dental Screening Dental Screen Date: 06/21/23 [facility] Medical History Recurrent urinary tract infection Internal derangement of right shoulder Acromioclavicular joint arthritis Chronic right shoulder pain Proteinuria Morbid obesity with BMI of 50.0-59.9, adult 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 Hypocalcemia Postoperative hypothyroidism History of thyroid cancer Vitamin D deficiency HLD (hyperlipidemia) HTN (hypertension) Onychomycosis of multiple toenails with type 1 diabetes mellitus Surgical History S/P trigger finger release History of foot surgery Hx of thyroidectomy History of dental surgery Family History Father Myocardial infarction Pacemaker Mother Pulmonary embolism High cholesterol Social History Household Members: Spouse Housing: House Patient Tobacco Use Status: Never used Tobacco e-Cigarette/Vaping Use: Never Used Second Hand Smoke Exposure: No service: No Current occupational status: employed 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 Gonzales Adam, Kary Mcclellan, Joshua Longoria and colleagues, with an educational luis from [employer]. Physical exam (Primary Care) Tobacco/Smoking Status: Tobacco use Status Tobacco use date assessed 06/21/23 09/25/23 09:27 Patient Tobacco Use Status Never used Tobacco 09/25/23 09:27 e-Cigarette/Vaping Use Never Used 09/25/23 09:27 Thrive Assessment: Date of Thrive Assessment Date Thrive assessed 03/15/23 09/25/23 09:27 Coding
--- NOTE | 2023-10-08 09:05 | AM.OFFWIN_ITS ---
Intake Vital Signs 10/08/23 08:49 Height 5 ft 2 in Weight 347 lb 2 oz BMI 63.5 BP 126/88 Blood Pressure Location Lt brachial Position Sitting Pulse 93 Pulse Source Pulse Oximeter Pulse Oximetry (%) 96 Oxygen Delivery Method Room Air Intake Visit Reasons: Blocked ear/wax buildup left ear Patient Tobacco Use Status: Never used Tobacco Allergies No Known Allergies Allergy (Verified 10/08/23 08:51) Medication List - Last Reconciled 10/08/23 by Rusty Moser MD cholecalciferol (vitamin D3) 50 mcg PO DAILY 90 days insulin lispro (Humalog U-100 Insulin) 150 units (1.5 mL) subcut DAILY Tirosint (levothyroxine) 200 mcg PO DAILY NS HPI Blocked ear/wax buildup left ear HPI Details Patient is a 33-year-old female came in today to be evaluated for to medical problems Having difficulty hearing from left ear for the past 10 days, patient says that she builds up wax in her ear quickly She has been trying to clean it with QT but has not been able to. 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 Hypocalcemia Postoperative hypothyroidism History of thyroid cancer Vitamin D deficiency HLD (hyperlipidemia) HTN (hypertension) Onychomycosis of multiple toenails with type 1 diabetes mellitus Surgical History S/P trigger finger release History of foot surgery Hx of thyroidectomy History of dental surgery Family History Father Myocardial infarction Pacemaker Mother Pulmonary embolism High cholesterol Social History Household Members: Spouse Housing: House Patient Tobacco Use Status: Never used Tobacco e-Cigarette/Vaping Use: Never Used Second Hand Smoke Exposure: No service: No Current occupational status: employed 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 Cognitive needs: No Hearing needs: No Vision needs: Yes Review of Systems Const Denies chills and Denies fever(s) ENT Denies epistaxis and Denies nasal discharge Card Denies chest pain Resp Denies chest congestion, Denies cough and Denies hemoptysis GI Denies diarrhea and Denies nausea Neuro Reports no additional complaints Psych Reports no additional complaints Endo Reports no additional complaints Physical Exam Vital Signs: Last Vital Signs Pulse 93 10/08/23 08:49 BP 126/88 10/08/23 08:49 Pulse Ox 96 10/08/23 08:49 Oxygen Delivery Method Room Air 10/08/23 08:49 BMI result Body Mass Index 63.5 Const General: cooperative, comfortable and no acute distress Orientation/consciousness: patient oriented x3 HEENT Other: Both ears impacted with cerumen, no pain with tricuspid pressure Head: Yes normocephalic Eyes General: appearance normal, both eyes and all related structures Neck Other: Supple Neck: Yes supple Resp Effort & Inspection: normal respiratory effort, no cough and no stridor Skin Other: Maculopapular rash left breast General skin exam: turgor normal Neuro Other: Motor sensory intact General: patient oriented x3, tone normal and moves all extremities Extrem Other: No lower extremity swelling. Right lower extremity: no edema Left lower extremity: no edema Psych Other: Normal effect, speech clear Office Procedures Cerumen Removal From which ear canal was the cerumen removed: bilateral Removal: irrigation Notes: patient tolerated procedure well, no complications and ear canal clear [id number] Irrigation/Lavage Assessment & Plan Assessment & Plan (1) Pruritic rash: Code(s): L28.2 - Other prurigo (2) Impacted cerumen, bilateral: Code(s): H61.23 - Impacted cerumen, bilateral Plan Patient is a 33-year-old female came in today to be evaluated for to medical problems Having difficulty hearing from left ear for the past 10 days, patient says that she builds up wax in her ear quickly She has been trying to clean it with QT but has not been able to. She has also developed rash on her left breast which is pruritic, and has been going on for the past 3 weeks We have irrigated her ears with good result For rash I have sent clobetasol lotion that she is to use at night Patient is to return in 2 weeks for follow-up Medications: New clobetasol 0.05% 1 appl topical BEDTIME 118 mL 0RF L28.2 - Other prurigo Coding Level of Care Code Est Pt Level 3 (20539) Diagnoses Pruritic rash L28.2 Impacted cerumen, bilateral H61.23 CPT Codes Office Procedure - CPT: 91084-Dsc Irrigation/Lavage ([id number])
== END 2023-10-08 10:20 | disposition home or self-care (01) ==
PROVIDERS: PCP Internal Medicine; Visit Provider Internal Medicine
DX: L28.2 Other prurigo (principal); H61.23 Impacted cerumen, bilateral
CPT/HCPCS: 69209; 99213

== ENCOUNTER 2023-10-25 07:00 | Outpatient (RCR) | payer OTHER, SELFPAY ==
--- NOTE | 2023-09-20 08:07 | MHC.PT.EP ---
[facility] [place] Office [place] Office [place] Office [address] Laura Dick [address] [phone] F: [phone] F: [phone] F: [phone] F: [phone] Physical Therapy Plan of Care Date of Evaluation: 09/20/23 Date of Surgery: Diagnosis: This is a 33 yo female presenting to skilled PT with a script for adhesive capsulitis of R shoulder. Assessment: This is a 33 yo female presenting to skilled PT with a script for adhesive capsulitis of R shoulder. She notes R shoulder getting tighter and more painful since the summer, ROM and pain increasing over time. She has been here in the past with DC note stating 04/26/23: due to lack of sustained progress in skilled PT, we will hold at this time until follow up and/or further imaging. pt has been educated extensively on HEP, posture, pathology and likelihood of continued difficulty with movement and ROM should postural awareness not improve. Patient is being followed by [facility] ortho, Dr. Powell's note states I recommend resumption of PT and inclusion of left shoulder in exercises. May consider embolization with dr Livingston. Referral made. Pain is with all movements above 90 degs. Pain is located throughout the anterior/posterior GHJ and can radiate into the hand. Pain is described as sharp, achy and constant. Assessment reveals pain that ranges from up to a 8/10 at the worst. Patient demos decreased B shoulder and cervical ROM, strength of B shoulder's, TTP at GHJ joint line, UT and impaired posture with forward head and rounded shoulders. Based on functional limitations, impaired QOL and pain tolerance patient is a good candidate for skilled PT 2x/wk for 5 wks. Frequency and Duration: The patient will be seen 2x/wk for 5 wks Short Term Goals: (In 2 weeks) Demo I with HEP Improve shoulder AROM by at least 10 degs Demo proper scapular recruitment with appropriate shoulder strengthening exercises Custodial Goals: (in 5 wks) Improve shoulder nonpainful AROM to almost near equal B Demo at least 1 grade improvement in MMT for shoulder Improve SPADI by at least 10 points Improve overall functional QOL by at least 50% Able to perform UB ADL's on own without assist Able to pick up worker her cat floor to chest (17 lbs) Treatment Plan: Modalities to reduce pain, spasms and effusion. Manual therapy to restore motion and function. Therapeutic exercise to improve strength and flexibility. Neuromuscular re-education for posture and balance. Therapeutic activities to return to functional activities of daily living. Electronically signed by: Chayo Odell PT Please sign and return to therapist. Thank you for your referral.
--- NOTE | 2023-11-28 09:06 | MHC.PT.DC ---
[facility] [place] Office [place] Office [place] Office [address] [phone] F: [phone] F: [phone] F: [phone] F: [phone] Physical Therapy Discharge Report Diagnosis: This is a 33 yo female presenting to skilled PT with a script for adhesive capsulitis of R shoulder. Date of Surgery: Date of Evaluation: 09/20/23 Date of Discharge: 11/28/23 Treatments to Date: 11 Cancellations to Date: 0 No Shows to Date: 0 Discharge Status: Independent with HEP Recommend MD Follow-up Discharge Summary: 10/24: Patient has had 10 visits of PT for which she has come consistently. She demos 3+/5 flexion, 3-/5 abduction, 4/5 IR, 3-/5 ER for strength. She demos 119 flexion, 98 abduction and 10 ER AROM. She has made some small gains however she was extensively educated on the importance of HEP maintenance. She reports L shoulder is starting to bother her more often, I did educate her to continue her same exercises on the L and referred to back to PCP for management as needed. DC to HEP. Electronically signed by: Chayo Odell PT Please sign and return to therapist. Thank you for your referral.
== END 2023-11-28 09:06 | disposition home or self-care (01) ==
LOC: HO.PTCHIC 07:00
PROVIDERS: PCP Internal Medicine; Visit Provider Orthopaedic Surgery
DX: M75.01 Adhesive capsulitis of right shoulder (principal)
CPT/HCPCS: 97110; 97140; 97162

== ENCOUNTER 2023-11-26 09:21 | Outpatient (REF) | payer OTHER, SELFPAY ==
[2023-11-26 11:12] LABS: Free T4 (Free Thyroxine) 1.18 ng/dL (0.71-1.85); Thyroid Stimulating Hormone 5.12 uIU/mL (0.32-4.0)
[2023-11-29 04:39] LABS: Thyroglobulin Antibody <1 IU/mL (<=1); Thyroglobulin Level <0.1 ng/mL
== END 2023-11-26 09:22 | disposition home or self-care (01) ==
LOC: HO.HMGCLDS 09:21
PROVIDERS: PCP Internal Medicine; Visit Provider Internal Medicine Endocrinology, Diabetes & Metabolism
DX: Z85.850 Personal history of malignant neoplasm of thyroid (principal)
CPT/HCPCS: 36415; 84432; 84439; 84443; 86800

== ENCOUNTER 2023-11-27 11:15 | Outpatient (AMB) | payer OTHER, SELFPAY ==
--- NOTE | 2023-11-27 11:22 | A.OFFVIS_ITS ---
Vital Signs 11/27/23 11:23 Height 5 ft 2 in Weight 345 lb 0.375 oz BMI 63.1 BP 128/86 Blood Pressure Location Lt brachial Position Sitting Pulse 90 Pulse Source Pulse Oximeter Intake Visit Reasons: f/u Type 1 DM /thyroid cancer Intake Note: Patient presents today to follow up on D1MT and thyroid caner. 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 The patient last saw Dr. Mosquera on 01/17/2020 1) T1DM: Initially diagnosed with T1DM at the age of 2. She is currently using the Tandem T-Slim insulin pump and the DEXCOM G6 CGM. Pump/Sensor: Uses Tandem T-Slim insulin pump with Lispro. Does use Control IQ. Pump settings: Basal: 12 am: 1.70 units/hr 5A =1.75 Total Daily Basal Dose: 41units/day ISF: 15 ICR: MN 1:3 3P = 1:4 Goal: 100 Duration of Insulin Action: 3 hours She is currently using a total daily dose of 100 units of insulin, with 35% basal and 65% bolus. She changes her site Q 2-3 days. Has DEXCOM G6 Sensor. Download shows she is using the sensor 100% of the time. Average glucose 136 with standard deviation of 36 and G mi of 6.6%. 89% range with a 9% hyperglycemia and 1% hypoglycemia and 1% very low. Most of the hypoglycemia is occurring late evening Most recent A1C: 6.5 She does have occasional lows 4 X/ wk as well as after her lunchtime bolus or dinner bolus . She is symptomatic at these times and treats according to the rule of 15's. Denies family history of autoimmunity. Has eyes checked yearly, last eye exam 6 mos a g0- has another appt in 12/2023 , she reports there is concern for retinopathy. She sees Dr. Houser at [facility]. Denies Neuropathy. Does have stocking glove pattern distribution of paresthesias. No Nephropathy, off TOMASZ/ARB as she was trying to conceive. UAC 3.4 03/11/2021. Has HLD, off statin as she was trying to conceive. LDL 77 03/11/2021. Denies CAD Has had diabetes education. Diet/Carb counting: Is comfortable with carb counting. She recently stopped her OCP and is interested in conceiving in the near future. 2) Thyroid Cancer: The patient was noted to have a goiter on exam and underwent thyroid US which revealed a multinodular thyroid. She was scheduled for FNA boipsy 08/06/2019 which revealed a diffusely heterogenous gland consistent with Oswaldo's disease, with multiple pseudonodules. There was a true nodule present in the R mid pole measuring 1.0 cm with some peripheral calcification. FNA biopsy of this nodule was performed with official Cytology reading [place] Category IV Suspicious for follicular neoplasm. I did receive a call from the Pathologist Dr. Bunny Connor on 08/10/2019 who stated that he felt this was more consistent with a [place] Category V, suspicious for PTC, and that he felt strongly the lesion should be removed. 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 0/2 lymph nodes were positive. This was [id number]. She underwent a completion thyroidectomy 03/23/2020. Path revealed 2 foci of PTC measuring 1.6 cm and 0.2 cm. The 1.6 cm foci did have ill defined margins as well as capsular invasion. She did undergo I131 ablation that was thyrogen stimulated 08/24/2020 with 29.1 mCi of I131. 08/20/20 TSH 45.3, TG <0.1 with TgAB <1. WBS subsequent to this treatment revealed faint uptake within the neck, and a lack of physiologic activity throughout the body, which was concerning for a high iodine load prior to treatment. She had labs completed 10/01/2020 which revealed a TSH of 16.71, TG <0.1 and TG antibody <1. Her dose of Levothyroxine was increased to 200 mcg PO daily. Labs repeated 01/07/2021 revealed a TSH of 3.81, TG <0.1 and TgAB <1. Her dose was changed to Tirosint 200 mcg PO daily at that time due to suspected absorption issues. She then became slightly hyperthyroid so her Tirosint was decreased to 175 mcg PO daily. She had an US head and neck 12/07/2021 which revealed no abnormality. However recent thyroid ultrasound showed abnormal lymph nodes as outlined below. She does have an appointment with Dr. Hanane Ugarte the next few months THYROID BED: Prior thyroidectomy. No residual thyroid tissue demonstrated in the thyroid bed. No cystic or solid nodules demonstrated in the thyroid bed. RIGHT NECK SOFT TISSUES: Right level 1B 0.8 x 0.5 x 0.8 cm node with echogenic hilum, previously 0.8 x 0.5 x 0.7 cm. Right level 1B 1.7 x 0.6 x 0.8 cm node with echogenic hilum was not identified on the prior exam. LEFT NECK SOFT TISSUES: Left level 5A 1.8 x 0.9 x 1.4 cm node was not identified on the prior study. This node appears atypical with diffuse internal echoes and cortical thickening. Left level 3 node measures 2.0 x 0.8 x 1.0 cm with echogenic hilum and borderline cortical thickening, not previously identified. US/US soft tiss head and/or neck IMPRESSION: 1. Bilateral cervical nodes as detailed above. Correlation with clinical exam recommended to determine further management. Recommend follow up ultrasound in 3 months. 2. If clinically indicated further evaluation of the neck soft tissues and nodes may be performed with CT soft tissue neck with intravenous contrast. Labs: Laboratory Tests 12/15/22 12/15/22 12/15/22 10:55 10:57 10:57 Creatinine 0.79 Estimated GFR > 60 Hemoglobin A1c % 5.8 LDL Cholesterol Direct LDL Cholesterol, Calc TSH 2.19 Free T4 PTH Intact Calcium (PTH Intact) Microalb/Creat Ratio 8.7 12/15/22 12/15/22 10:57 10:57 Creatinine Estimated GFR Hemoglobin A1c % LDL Cholesterol Direct 141 H LDL Cholesterol, Calc [address] Dr. Ugarte Free T4 1.00 PTH Intact 31 Calcium (PTH Intact) 8.7 Microalb/Creat Ratio On Tirosint [address] Ugarte who did US and did not show abnl LN s . 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 Hypocalcemia Postoperative hypothyroidism History of thyroid cancer Vitamin D deficiency HLD (hyperlipidemia) HTN (hypertension) Onychomycosis of multiple toenails with type 1 diabetes mellitus Surgical History S/P trigger finger release History of foot surgery Hx of thyroidectomy History of dental surgery Family History Father Myocardial infarction Pacemaker Mother Pulmonary embolism High cholesterol Social History Household Members: Spouse Housing: House Patient Tobacco Use Status: Never used Tobacco e-Cigarette/Vaping Use: Never Used Second Hand Smoke Exposure: No service: No Current occupational status: employed 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 Absence of acromegalic features. Neck exam reveals healed scar status post thyroidectomy. There are no palpable lymph nodes . No carotid bruits present. Lungs CTA. Heart S1 S2, Reg R/R. No M/R/ G. Skin exam reveals absence of vitiligo or acanthosis nigricans. Abdominal exam reveals Soft NT/ND with NA BS. No organomegaly present. Neck Other: . Extrem Other: Visual exam of foot performed. No ulcerations or open lesions. No onchomycosis, no callouses.Pulses 2 + distally Sensation intact to monofilament exam. 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 She does have some episodes of hypoglycemia. Plan is to continue the pump settings. 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 0/2 lymph nodes were positive. This was [id number]. She underwent a completion thyroidectomy 03/23/2020. Path revealed 2 foci of PTC measuring 1.6 cm and 0.2 cm. The 1.6 cm foci did have ill defined margins as well as capsular invasion. She did undergo I131 ablation that was thyrogen stimulated 08/24/2020 with 29.1 mCi . Subsequent neck ultrasound did not show any evidence of disease and thyroglobulin some been undetectable. Recent TSH was elevated.Currently on Tirosint Plan is to increase the Tirosint to 250 ug and recheck TSH and free T4 in about 6 weeks' time. Will try to obtain the notes from Dr. Ugarte as well as the recent ultrasound that was performed by Dr. Ugarte (3) HLD (hyperlipidemia): Code(s): E78.5 - Hyperlipidemia, unspecified Category: Medical Qualifiers: Hyperlipidemia type: unspecified Qualified Code(s): E78.5 - Hyperlipidemia, unspecified Plan: She does have a markedly elevated LDL cholesterol suggestive of familial hypercholesterolemia but is attempting will hold off on resuming statin for now Orders: Orders AMB Hemoglobin A1c Today E10.49 - Type 1 diabetes mellitus with other diabetic neurological complication, Z13.9 - Encounter for screening, unspecified Free T4 (Free Thyroxine) 6 Weeks E89.0 - Postprocedural hypothyroidism Thyroid Stimulating Hormone 6 Weeks E89.0 - Postprocedural hypothyroidism Lipid Panel 6 Weeks E10.49 - Type 1 diabetes mellitus with other diabetic neurological complication Microalbumin, Random (w Creat) 6 Weeks E10.49 - Type 1 diabetes mellitus with other diabetic neurological complication Medications: New Tirosint (levothyroxine) Take 50 ug with 200 ug to make total of 250 ug 50 mcg PO DAILY 30 caps 4RF NS Coding Level of Care Code Est Pt Level 4 (66678) Diagnoses 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
[2023-11-27 11:23] VITALS: BP 128/86; PULSE 90; BMI 63.1
[2023-11-27 11:33] LABS: Glucose, Whole Blood 83 mg/dL (60-115)
== END 2023-11-27 12:04 | disposition home or self-care (01) ==
PROVIDERS: PCP Internal Medicine; Visit Provider Internal Medicine Endocrinology, Diabetes & Metabolism
DX: E10.49 Type 1 diabetes mellitus with other diabetic neurological complication (principal); Z85.850 Personal history of malignant neoplasm of thyroid; E78.5 Hyperlipidemia, unspecified; Z13.9 Encounter for screening, unspecified
CPT/HCPCS: 99214

== ENCOUNTER → 2023-11-27 11:15 | Outpatient (BNVA) | payer OTHER, SELFPAY | PROVIDERS: PCP Internal Medicine; Visit Provider Internal Medicine Endocrinology, Diabetes & Metabolism | DX: E10.49 Type 1 diabetes mellitus with other diabetic neurological complication (principal); E78.5 Hyperlipidemia, unspecified; E89.0 Postprocedural hypothyroidism; Z85.850 Personal history of malignant neoplasm of thyroid; Z96.41 Presence of insulin pump (external) (internal) | CPT/HCPCS: 82947; 83036 ==

== ENCOUNTER 2023-12-03 07:02 | Outpatient (AMB) | payer OTHER, SELFPAY ==
--- NOTE | 2023-12-03 08:02 | A.OFFVIS_ITS ---
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: No Accompanied by: Self / Same As Patient Allergies No Known Allergies Allergy (Verified 11/27/23 11:28) [facility] Comprehensive Diabetes Asmnt Most Recent Diabetes Results: Hemoglobin A1c 6.6 % 01/27/20 Microalb/Creat Ratio 8.7 ug/mg cr 12/15/22 Cholesterol 278 mg/dL (<200) H 04/26/23 HDL Cholesterol 57 mg/dL (>40) 04/26/23 Triglycerides 60 mg/dL (<150) 04/26/23 Creatinine 0.84 mg/dL (0.5-1.4) 04/26/23 Blood Urea Nitrogen 13 mg/dL (9-16) 04/26/23 Sodium 137 mmol/L (135-145) 04/26/23 Potassium 4.1 mmol/L (3.3-5.1) 04/26/23 Chloride 102 mmol/L (96-108) 04/26/23 Carbon Dioxide 26 mmol/L (22-29) 04/26/23 Calcium 9.2 mg/dL (8.4-10.2) 04/26/23 AST 17 U/L (5-31) 04/26/23 ALT 18 U/L (0-31) 04/26/23 Total Protein 6.8 g/dL (6.5-8.0) 12/15/22 Albumin 3.7 g/dL (3.5-5.0) 12/15/22 [facility] Medical History Recurrent urinary tract infection Internal derangement of right shoulder Acromioclavicular joint arthritis Chronic right shoulder pain Proteinuria Morbid obesity with BMI of 50.0-59.9, adult 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 Hypocalcemia Postoperative hypothyroidism History of thyroid cancer Vitamin D deficiency HLD (hyperlipidemia) HTN (hypertension) Onychomycosis of multiple toenails with type 1 diabetes mellitus Surgical History S/P trigger finger release History of foot surgery Hx of thyroidectomy History of dental surgery Family History Father Myocardial infarction Pacemaker Mother Pulmonary embolism High cholesterol Social History Household Members: Spouse Housing: House Patient Tobacco Use Status: Never used Tobacco e-Cigarette/Vaping Use: Never Used Second Hand Smoke Exposure: No service: No Current occupational status: employed 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 High Alert: Off ??? Low Alert: 70 mg/dl Above target: 7.9% At target 91% Below target: 1.5% Average glucose for the last 2 weeks 131 mg/dL A1c 6.5% 08/2023 Patient appears to be overriding multiple correction boluses. Patient also has slight increasing glucose between 2:00pm and 6:00pm, see changes to pump settin gs below. Patient is considering , reviewed target numbers with patient. She is currently seeing bariatric program at [facility], she is considering weight loss surgery, but also participating in weight loss program. Basal rate(s) (units/hour) : 12 AM? to 2 PM 1.75 units / hr New 2 PM to 6 PM 1.85 units / hr 6 PM to 12 AM 1.75 units / hr Bolus setting Insulin Carbohydrate Ratio (s) 12 AM?to 11 AM? 1:3 11 AM to 3 PM 1:3 3 PM to 12 AM 1:4 New 11 AM to 3 PM 1:3 Correction Factor / Sensitivity Factor 12 AM?to 12 AM? 1:12 New 12 AM?to 12 AM? 1:11 Active Insulin Time:? 5 hours Target(s): 12 AM? to 12 AM 100 mg/dL with control IQ off Target 110 mg/dL with control IQ on Patient Instructions: Follow-up with blood and plasma laboratory assistant in 2 months, contact blood and plasma laboratory assistant with questions or concerns Coding Level of Care Code Est Pt Level 1 (74633) Diagnoses Onychomycosis of multiple toenails with type 1 diabetes mellitus E10.69; B35.1
== END 2023-12-03 08:05 | disposition home or self-care (01) ==
PROVIDERS: PCP Internal Medicine; Visit Provider Registered Nurse Diabetes Educator
DX: E10.69 Type 1 diabetes mellitus with other specified complication (principal); B35.1 Tinea unguium

== ENCOUNTER → 2023-12-03 07:02 | Outpatient (BNVA) | payer OTHER, SELFPAY | PROVIDERS: PCP Internal Medicine; Visit Provider Registered Nurse Diabetes Educator | DX: E10.69 Type 1 diabetes mellitus with other specified complication (principal); B35.1 Tinea unguium; Z46.81 Encounter for fitting and adjustment of insulin pump; Z79.4 Long term (current) use of insulin | CPT/HCPCS: 99211 ==

== ENCOUNTER 2024-02-03 07:01 | Outpatient (AMB) | payer OTHER, SELFPAY ==
--- NOTE | 2024-02-03 08:04 | A.OFFVIS_ITS ---
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 Accompanied by: Self / Same As Patient Allergies No Known Allergies Allergy (Verified 11/27/23 11:28) HPI Comprehensive Diabetes Asmnt Most Recent Diabetes Results: Hemoglobin A1c 6.6 % 01/27/20 Microalb/Creat Ratio 8.7 ug/mg cr 12/15/22 Cholesterol 278 mg/dL (<200) H 04/26/23 HDL Cholesterol 57 mg/dL (>40) 04/26/23 Triglycerides 60 mg/dL (<150) 04/26/23 Creatinine 0.84 mg/dL (0.5-1.4) 04/26/23 Blood Urea Nitrogen 13 mg/dL (9-16) 04/26/23 Sodium 137 mmol/L (135-145) 04/26/23 Potassium 4.1 mmol/L (3.3-5.1) 04/26/23 Chloride 102 mmol/L (96-108) 04/26/23 Carbon Dioxide 26 mmol/L (22-29) 04/26/23 Calcium 9.2 mg/dL (8.4-10.2) 04/26/23 AST 17 U/L (5-31) 04/26/23 ALT 18 U/L (0-31) 04/26/23 Total Protein 6.8 g/dL (6.5-8.0) 12/15/22 Albumin 3.7 g/dL (3.5-5.0) 12/15/22 [facility] Medical History Recurrent urinary tract infection Internal derangement of right shoulder Acromioclavicular joint arthritis Chronic right shoulder pain Proteinuria Morbid obesity with BMI of 50.0-59.9, adult 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 Hypocalcemia Postoperative hypothyroidism History of thyroid cancer Vitamin D deficiency HLD (hyperlipidemia) HTN (hypertension) Onychomycosis of multiple toenails with type 1 diabetes mellitus Surgical History S/P trigger finger release History of foot surgery Hx of thyroidectomy History of dental surgery Family History Father Myocardial infarction Pacemaker Mother Pulmonary embolism High cholesterol Social History Household Members: Spouse Housing: House Patient Tobacco Use Status: Never used Tobacco e-Cigarette/Vaping Use: Never Used Second Hand Smoke Exposure: No service: No Current occupational status: employed 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 Explained to patient she can continue to use Dexcom G6 sensors after pump upgrade, if she would like to upgrade before she runs out of Dexcom G6 sensor The following topics were reviewed today: - G6 versus G7 -software update for G7 ??? High Alert: Off ??? Low Alert: 70 mg/dl Above target: 7.7% At target 91% Below target: 1.6% Average glucose for the last 2 weeks 133 mg/dL A1c 6.5% 10/2023 Patient continues to be overriding multiple boluses. Reports that the maximum bolus volume she feels she can take is approximately 13 units of Humalog U 100, this has led her to do many manual corrections in order to cover carbohydrates. She also under estimates the amount of carbohydrate so as not to exceed the 13 units of Humalog. Discussed with patient how this could be problematic for blood sugar control, reviewed with patient maybe switching from Humalog U 100 to Humalog U 200 to reduce volume size of boluses. Then she would be able to correctly calculate carbohydrates without concern about losing insulin delivery site. In addition patient is going to try new insulin delivery sent autosoft 30, reviewed at today's appointment how to insert autosoft 30. Instructed patient to check for cannula length to be sure it is the same length as autosoft 90 insulin delivery/ Patient has follow-up appointment with Dr. Bedolla 02/26/2024 No changes made to insulin pump settings at today's visit Basal rate(s) (units/hour) : 12 AM?to 5 AM 1.70 units / hr 5 AM to 2 PM 1.75 units / hr 2 PM to 6 PM 1.85 units / hr 6 PM to 12 AM 1.75 units / hr Bolus setting Insulin Carbohydrate Ratio (s) 12 AM?to 12 AM? 1:3 Correction Factor / Sensitivity Factor 12 AM?to 12 AM? 1:11 Active Insulin Time:? 5 hours Target(s): 12 AM? 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
== END 2024-02-03 08:08 | disposition home or self-care (01) ==
PROVIDERS: PCP Internal Medicine; Visit Provider Registered Nurse Diabetes Educator
DX: E10.49 Type 1 diabetes mellitus with other diabetic neurological complication (principal)

== ENCOUNTER → 2024-02-03 07:01 | Outpatient (BNVA) | payer OTHER, SELFPAY | PROVIDERS: PCP Internal Medicine; Visit Provider Registered Nurse Diabetes Educator | DX: Z46.81 Encounter for fitting and adjustment of insulin pump (principal); E10.49 Type 1 diabetes mellitus with other diabetic neurological complication | CPT/HCPCS: 99211 ==

== ENCOUNTER 2024-02-22 10:11 | Outpatient (REF) | payer OTHER, SELFPAY ==
[2024-02-22 11:24] LABS: Cholesterol 229 mg/dL (<200); HDL Cholesterol 54 mg/dL (>40); LDL Cholesterol Calculated 164 mg/dL (<100); Triglycerides 59 mg/dL (<150)
[2024-02-22 11:41] LABS: Free T4 (Free Thyroxine) 1.25 ng/dL (0.71-1.85); Thyroid Stimulating Hormone 0.62 uIU/mL (0.32-4.0)
[2024-02-22 11:45] LABS: Creatinine Urine 143.06 mg/dL; Microalbum/Creatinine Ratio Ur 5.5 ug/mg cr (<30)
== END 2024-02-22 10:12 | disposition home or self-care (01) ==
LOC: HO.LAB 10:11
PROVIDERS: PCP Internal Medicine; Visit Provider Internal Medicine Endocrinology, Diabetes & Metabolism
DX: E10.49 Type 1 diabetes mellitus with other diabetic neurological complication (principal); E89.0 Postprocedural hypothyroidism
CPT/HCPCS: 36415; 80061; 82043; 82570; 84439; 84443

== ENCOUNTER 2024-02-26 08:22 | Outpatient (AMB) | payer OTHER, SELFPAY ==
--- NOTE | 2024-02-26 08:37 | MHC.OFFVIS ---
Vital Signs 02/26/24 08:41 Height 5 ft 2 in Weight 346 lb 12.594 oz BMI 63.4 BP 110/72 Blood Pressure Location Rt brachial Position Sitting Pulse 84 Pulse Source Pulse Oximeter Intake Visit Reasons: f/u Type 1 DM /thyroid cancer/CONFIRMED Intake Note: Patient present today to follow up on Type 1 Diabetes Mellitus and Thyroid Cancer. 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 The patient last saw Dr. Mosquera on 01/17/2020 1) T1DM: Initially diagnosed with T1DM at the age of 2. She is currently using the Tandem T-Slim insulin pump and the DEXCOM G6 CGM. Pump/Sensor: Uses Tandem T-Slim insulin pump with Lispro. Does use Control IQ. Pump settings: Basal rate(s) (units/hour) : 12 AM?to 5 AM 1.70 units / hr 5 AM to 2 PM 1.75 units / hr 2 PM to 6 PM 1.85 units / hr 6 PM to 12 AM 1.75 units / hr Bolus setting Insulin Carbohydrate Ratio (s) 12 AM?to 12 AM? 1:3 Correction Factor / Sensitivity Factor 12 AM?to 12 AM? 1:11 Active Insulin Time:? 5 hours Target(s): 12 AM? to 12 AM 100 mg/dL with control IQ off Target 110 mg/dL with control IQ on Duration of Insulin Action: 3 hours She is currently using a total daily dose of 115.2 units of insulin, with 37% basal and 63% bolus. She changes her site Q 2-3 days. Has DEXCOM G6 Sensor. Download shows she is using the sensor 100% of the time. Average glucose 132 with standard deviation of 34 and G mi of 6.5%. 89% range with a 9% hyperglycemia and 1% hypoglycemia and 0. 1% very low. She does have occasional lows as well as after her lunchtime bolus or dinner bolus . She is symptomatic at these times and treats according to the rule of 15's. Denies family history of autoimmunity. Has eyes checked yearly, last eye exam in 12/2023 , she reports there is concern for retinopathy. She sees at [facility]. Denies Neuropathy. Does have stocking glove pattern distribution of paresthesias. No Nephropathy, off TOMASZ/ARB as she was trying to conceive. UAC 3.4 03/11/2021. Has HLD, off statin as she was trying to conceive. LDL 77 03/11/2021. Denies CAD Has had diabetes education. Diet/Carb counting: Is comfortable with carb counting. She recently stopped her OCP and is interested in conceiving in the near future.. Planning on starting Wegovy next wk 2) Thyroid Cancer: The patient was noted to have a goiter on exam and underwent thyroid US which revealed a multinodular thyroid. She was scheduled for FNA boipsy 08/06/2019 which revealed a diffusely heterogenous gland consistent with Oswaldo's disease, with multiple pseudonodules. There was a true nodule present in the R mid pole measuring 1.0 cm with some peripheral calcification. FNA biopsy of this nodule was performed with official Cytology reading Mclaughlin Category IV Suspicious for follicular neoplasm. I did receive a call from the Pathologist Dr. Bunny Connor on 08/10/2019 who stated that he felt this was more consistent with a Mclaughlin Category V, suspicious for PTC, and that he felt strongly the lesion should be removed. 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 0/2 lymph nodes were positive. This was [id number]. She underwent a completion thyroidectomy 03/23/2020. Path revealed 2 foci of PTC measuring 1.6 cm and 0.2 cm. The 1.6 cm foci did have ill defined margins as well as capsular invasion. She did undergo I131 ablation that was thyrogen stimulated 08/24/2020 with 29.1 mCi of I131. 08/20/20 TSH 45.3, TG <0.1 with TgAB <1. WBS subsequent to this treatment revealed faint uptake within the neck, and a lack of physiologic activity throughout the body, which was concerning for a high iodine load prior to treatment. She had labs completed 10/01/2020 which revealed a TSH of 16.71, TG <0.1 and TG antibody <1. Her dose of Levothyroxine was increased to 200 mcg PO daily. Labs repeated 01/07/2021 revealed a TSH of 3.81, TG <0.1 and TgAB <1. Her dose was changed to Tirosint 200 mcg PO daily at that time due to suspected absorption issues. She then became slightly hyperthyroid so her Tirosint was decreased to 175 mcg PO daily. She had an US head and neck 12/07/2021 which revealed no abnormality. However recent thyroid ultrasound showed abnormal lymph nodes as outlined below. She does have an appointment with Dr. Hanane Ugarte the next few months THYROID BED: Prior thyroidectomy. No residual thyroid tissue demonstrated in the thyroid bed. No cystic or solid nodules demonstrated in the thyroid bed. RIGHT NECK SOFT TISSUES: Right level 1B 0.8 x 0.5 x 0.8 cm node with echogenic hilum, previously 0.8 x 0.5 x 0.7 cm. Right level 1B 1.7 x 0.6 x 0.8 cm node with echogenic hilum was not identified on the prior exam. LEFT NECK SOFT TISSUES: Left level 5A 1.8 x 0.9 x 1.4 cm node was not identified on the prior study. This node appears atypical with diffuse internal echoes and cortical thickening. Left level 3 node measures 2.0 x 0.8 x 1.0 cm with echogenic hilum and borderline cortical thickening, not previously identified. US/US soft tiss head and/or neck IMPRESSION: 1. Bilateral cervical nodes as detailed above. Correlation with clinical exam recommended to determine further management. Recommend follow up ultrasound in 3 months. 2. If clinically indicated further evaluation of the neck soft tissues and nodes may be performed with CT soft tissue neck with intravenous contrast. Labs: Laboratory Tests 12/15/22 12/15/22 12/15/22 10:55 10:57 10:57 Creatinine 0.79 Estimated GFR > 60 Hemoglobin A1c % 5.8 LDL Cholesterol Direct LDL Cholesterol, Calc TSH 2.19 Free T4 PTH Intact Calcium (PTH Intact) Microalb/Creat Ratio 8.7 12/15/22 12/15/22 10:57 10:57 Creatinine Estimated GFR Hemoglobin A1c % LDL Cholesterol Direct 141 H LDL Cholesterol, Calc [address] Dr. Ugarte Free T4 1.00 PTH Intact 31 Calcium (PTH Intact) 8.7 Microalb/Creat Ratio On Tirosint [address] Ugarte who did US and did not show abnl LN s . 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 Hypocalcemia Postoperative hypothyroidism History of thyroid cancer Vitamin D deficiency HLD (hyperlipidemia) HTN (hypertension) Onychomycosis of multiple toenails with type 1 diabetes mellitus Surgical History S/P trigger finger release History of foot surgery Hx of thyroidectomy History of dental surgery Family History Father Myocardial infarction Pacemaker Mother Pulmonary embolism High cholesterol Social History Household Members: Spouse Housing: House Patient Tobacco Use Status: Never used Tobacco e-Cigarette/Vaping Use: Never Used Second Hand Smoke Exposure: No service: No Current occupational status: employed 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 Absence of acromegalic features. Neck exam reveals healed scar status post thyroidectomy. There are no palpable lymph nodes . No carotid bruits present. Lungs CTA. Heart S1 S2, Reg R/R. No M/R/ G. Skin exam reveals absence of vitiligo or acanthosis nigricans. Abdominal exam reveals Soft NT/ND with NA BS. No organomegaly present. Neck Other: . Extrem Other: Visual exam of foot performed. No ulcerations or open lesions. No onchomycosis, no callouses.Pulses 2 + distally Sensation intact to monofilament exam. 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 She does have some episodes of hypoglycemia. Plan is to continue the pump settings. 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 0/2 lymph nodes were positive. This was [id number]. She underwent a completion thyroidectomy 03/23/2020. Path revealed 2 foci of PTC measuring 1.6 cm and 0.2 cm. The 1.6 cm foci did have ill defined margins as well as capsular invasion. She did undergo I131 ablation that was thyrogen stimulated 08/24/2020 with 29.1 mCi . Subsequent neck ultrasound did not show any evidence of disease and thyroglobulin some been undetectable. Clinically and biochemically euthyroid on 250 mcg of Tirosint . Plan is to continue the current therapy. Will have patient follow-up in about [address] Davis yarn hauler joining our group with expertise and neck ultrasound (3) HLD (hyperlipidemia): Code(s): E78.5 - Hyperlipidemia, unspecified Category: Medical Qualifiers: Hyperlipidemia type: unspecified Qualified Code(s): E78.5 - Hyperlipidemia, unspecified Plan: She does have a markedly elevated LDL cholesterol suggestive of familial hypercholesterolemia but is now not attempting Will restart atorvastatin 40 mg and recheck lipid profile in 2 months Orders: Orders AMB Hemoglobin A1c Today E10.49 - Type 1 diabetes mellitus with other diabetic neurological complication Lipid Panel 2 Months E78.5 - Hyperlipidemia, unspecified Medications: New atorvastatin 40 mg PO DAILY 30 tabs 4RF Coding Level of Care Code Est Pt Level 4 (15830) Diagnoses 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
[2024-02-26 08:41] VITALS: BP 110/72; PULSE 84; BMI 63.4
[2024-02-26 08:54] LABS: Glucose, Whole Blood 141 mg/dL (60-115)
== END 2024-02-26 09:07 | disposition home or self-care (01) ==
PROVIDERS: PCP Internal Medicine; Visit Provider Internal Medicine Endocrinology, Diabetes & Metabolism
DX: E10.49 Type 1 diabetes mellitus with other diabetic neurological complication (principal); Z85.850 Personal history of malignant neoplasm of thyroid; E78.5 Hyperlipidemia, unspecified
CPT/HCPCS: 99214

== ENCOUNTER → 2024-02-26 08:22 | Outpatient (BNVA) | payer OTHER, SELFPAY | PROVIDERS: PCP Internal Medicine; Visit Provider Internal Medicine Endocrinology, Diabetes & Metabolism | DX: E10.49 Type 1 diabetes mellitus with other diabetic neurological complication (principal); E78.5 Hyperlipidemia, unspecified; Z85.850 Personal history of malignant neoplasm of thyroid; Z96.41 Presence of insulin pump (external) (internal) | CPT/HCPCS: 82947; 83036 ==

== ENCOUNTER 2024-03-30 08:07 | Outpatient (AMB) | payer OTHER, SELFPAY ==
[2024-03-30 08:10] VITALS: BP 114/80; PULSE 91; O2SAT 97; BMI 63.1
--- NOTE | 2024-03-30 08:10 | MHC.PC.OV ---
Vital Signs 03/30/24 08:10 Height 5 ft 2 in Weight 345 lb BMI 63.1 BP 114/80 Blood Pressure Location Lt brachial Position Sitting Pulse 91 Pulse Source Pulse Oximeter Pulse Oximetry (%) 97 Oxygen Delivery Method Room Air Intake Visit Reasons: annual PE Intake Note: Pt is here today for her PE Is last menstrual period known: Yes Last menstrual period: 03/18/24 Allergies No Known Allergies Allergy (Verified 03/30/24 08:26) Medication List - Last Reconciled 03/30/24 by Alisson Magaña MD atorvastatin 40 mg PO DAILY insulin lispro (Humalog U-100 Insulin) 150 units (1.5 mL) subcut DAILY semaglutide (weight loss) (Wegovy) mg subcut Tirosint (levothyroxine) 50 mcg PO DAILY NS Tirosint (levothyroxine) 200 mcg PO DAILY NS Tobacco use date assessed: 03/30/24 Dental Screening Dental Screen Date: 03/30/24 Did you have a dental visit in the last 12 months?: Yes Did you have a dental problem in the last 6 months where you did not have access to dental care?: Yes Was dental information given to patient?: Patient has dentist HPI annual PE HPI Details 33-year-old lady with type 1 diabetes mellitus, hypothyroidism,, obesity, hyperlipidemia here today for her physical exam. She states that she was started on Wegovy 0.25 given at Bariatric Surgery clinic at [facility] , started taking it a month ago for help with weight loss. She states that she has been tolerating the medication well but still not noticing any noticeable weight loss despite combining it with diet and exercise. She had recent fasting labs done which showed elevated LDL cholesterol. Was restarted back on atorvastatin [address] Bedolla. She is currently on the same dose of Tirosint 250 mcg daily and is still on insulin pump, followed by endocrine clinic. Her last TSH and free T4 was within normal limits and hemoglobin A1c came back at 6.4%. . She sees [facility] for her routine diabetes retinopathy screening, currently up-to-date. She goes to [facility] for her routine Pap and pelvic exam. Requested copy of results. 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 Hypocalcemia Postoperative hypothyroidism History of thyroid cancer Vitamin D deficiency HLD (hyperlipidemia) HTN (hypertension) Onychomycosis of multiple toenails with type 1 diabetes mellitus Surgical History S/P trigger finger release History of foot surgery Hx of thyroidectomy History of dental surgery Family History Father Myocardial infarction Pacemaker Mother Pulmonary embolism High cholesterol Social History Household Members: Spouse Housing: House Patient Tobacco Use Status: Never used Tobacco e-Cigarette/Vaping Use: Never Used Second Hand Smoke Exposure: No service: No Current occupational status: employed 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 1. Little interest or pleasure in doing things: not at all 2. Feeling down, depressed, or hopeless: not at all 3. Trouble falling or staying asleep, or sleeping too much: several days 4. Feeling tired or having little energy: several days 5. Poor appetite or overeating: not at all 6. Feeling bad about yourself - or that you are a failure or have let yourself or your family down: not at all 7. Trouble concentrating on things, such as reading the newspaper or watching television: not at all 8. Moving or speaking so slowly that other people could have noticed. Or the opposite - being so fidgety or restless that you have been moving around a lot more than usual: not at all 9. Thoughts that you would be better off or of hurting yourself in some way: not at all Total score: 2 Depression Screening Interpretation: Negative Depression Screening Done: Yes 25864 - PHQ-9 Billing: Yes Source: Developed by Drs. Gonzales Adam, Kary Mcclellan, Joshua Longoria and colleagues, with an educational luis from [employer]. Thrive Questionnaire Date Thrive assessed: 03/30/24 I am a: Patient What is your living situation today?: I have a steady place to live Within the past 12 months, did the food you bought not last and you didn't have the money to get more?: I choose not to answer this question Within the past 12 months, did you worry whether your food would run out before you got money to buy more?: I choose not to answer this question Do you have trouble paying for medicines?: I choose not to answer this question Do you have trouble getting transportation to medical appointments?: I choose not to answer this question Do you have trouble paying your heating and electricity bill?: I choose not to answer this question Do you have trouble taking care of your child, family member or friend?: I choose not to answer this question Do you have trouble with day-to-day activities such as bathing, preparing meals, shopping, managing finances, etc.?: I choose not to answer this question Are you currently unemployed and looking for a job?: No Are you interested in more education?: I choose not to answer this question Please select the resources that you would like help with: None Currently or been in a relationship where the following occur: I choose not to answer THRIVE Score: 0 AUDIT C Alcohol Use Questionnaire (AUDIT-C) 1. How often do you have a drink containing alcohol?: 2-4 times a month 2. How many drinks containing alcohol do you have on a typical day when you are drinking?: 1 or 2 3. How often do you have six or more drinks on one occasion?: Never Total Score: 2 BALDO-7 AMB Questionnaire BALDO-7 Date BALDO - 7 assessed: 03/30/24 Feeling nervous, anxious, or on edge: 0 = Not at all Not being able to stop or control worryin = Not at all Worrying too much about different things: 0 = Not at all Trouble relaxin = Not at all Being so restless that it is hard to sit still: 0 = Not at all Becoming easily annoyed or irritable: 0 = Not at all Feeling afraid as if something awful might happen: 0 = Not at all Total BALDO-7 score (0-4 normal; 5-9 mild; 10-14 moderate; 15-21 severe): 0 Source: Developed by Drs. Gonzales Adam, Kary Mcclellan, Joshua Longoria and colleagues, with an educational luis from [employer]. BALDO-7 Assessment Billing BALDO-7 Assessment Tool: BALDO-7 Assessment 16759 Review of Systems Const Denies fatigue Eyes Details: [facility] yearly for diabetes retinopathy screening Denies blurry vision Card Denies chest pain, Denies irregular heart rhythm, Denies dyspnea and Reports other Resp Denies cough and Denies dyspnea GI Denies abdominal pain, Denies change in bowel habits, Denies diarrhea and Denies nausea Reports no additional complaints Musc Details: Decreased range of motion of left shoulder joint, no improvement with physical therapy Skin/Breast Denies breast skin changes, Denies breast pain, Denies breast mass, Denies change in breast shape and Denies rash Neuro Reports no additional complaints Psych Reports no additional complaints Endo Denies cold intolerance, Denies fatigue, Denies heat intolerance, Denies polydipsia and Denies polyuria Bryn/Lymph Denies easy bruising Aller/Immun Reports no additional complaints Physical exam (Primary Care) Vital Signs: Last Vital Signs Pulse 91 03/30/24 08:10 BP 114/80 03/30/24 08:10 Pulse Ox 97 03/30/24 08:10 Oxygen Delivery Method Room Air 03/30/24 08:10 BMI result Body Mass Index 63.1 Tobacco/Smoking Status: Tobacco use Status Tobacco use date assessed 03/30/24 03/30/24 08:17 Patient Tobacco Use Status Never used Tobacco 03/30/24 08:11 e-Cigarette/Vaping Use Never Used 03/30/24 08:11 Depression Screening Interpretation: Negative Thrive Assessment: Date of Thrive Assessment Date Thrive assessed 03/15/23 03/30/24 08:11 Currently or been in a relationship where the following occur: I choose not to answer Const General: cooperative, comfortable and no acute distress Nutritional Appearance: obese morbidly obese Orientation/consciousness: patient oriented x3 HENMT Head: Yes normocephalic Ears: hearing grossly normal bilaterally, external ears normal, TM's normal bilaterally and EAC's normal General nose exam: Normal external nose present Face and sinus: Yes face symmetric Mouth: Normal oral and palatal mucosa present, oropharynx normal and moist mucous membranes Eyes General: appearance normal, both eyes and all related structures Neck Neck: Yes full ROM, Yes no lymphadenopathy and Yes supple Chest Chest palpation & inspection: normal inspection of the chest Breast/axilla inspection: normal inspection of the breasts Breast/axilla palpation: normal palpation of the breasts Resp Effort & Inspection: normal respiratory effort and able to speak in complete sentences Auscultation: clear to auscultation bilaterally Cardio Rate: regular rate Rhythm: regular rhythm Heart sounds: S1 normal heart sound present and S2 normal heart sound present GI Inspection: Yes obesity Palpation (GI): Soft to palpation, nontender, no guarding and no masses Auscultation: normal bowel sounds General: Yes deferred (Goes to [facility] for her routine Pap and pelvic exam,) Back/Spine/Pelvis Cervical Spine: cervical ROM normal Thoracic/Lumbar Spine: thoracic and lumbar spine normal to inspection Skin General skin exam: no rashes or lesions noted Neuro General: patient oriented x3, gait normal, tone normal, moves all extremities, Normal light touch and pain sensation and no focal motor deficits Cognition (Neuro): normal cognition Gait exam (Neuro): Normal gait present Motor exam (neuro): 5/5 motor strength present throughout Extrem Other: Unable to abduct left shoulder/arm more than 90 degrees due to pain and stiffness General: Yes no joint enlargement, Yes no pedal edema, Yes no calf tenderness and Yes normal gait Psych Appearance: grossly normal Mental Status: mental status grossly normal Speech and movement: Normal speech and movement present Affect: normal affect Attitude: cooperative Thought process: Normal thought process present Results Reviewed Results Reviewed: Laboratory Tests 02/22/24 02/26/24 10:57 08:53 Hgb A1c (Clinic) 6.4 H Triglycerides 59 Cholesterol 229 H LDL Cholesterol, Calc 164 H HDL Cholesterol 54 TSH 0.62 Free T4 1.25 Assessment and Plan Assessment & Plan (1) Annual visit for general adult medical examination with abnormal findings: Code(s): Z00.01 - Encounter for general adult medical examination with abnormal findings Plan: Will check appropriate labs. Recommended dental visit every 6 months and r continue with yearly eye exams, goes to [facility] for her diabetes retinopathy screening and routine eye exam . Take adequate calcium in diet and vitamin-D 3 at 2000 IU per cap once a day, in addition to weight-bearing exercises to help maintain good muscle tone and weight control. Instructed to do self-breast exam, and recommended to get yearly mammogram, starting at age 40. She is up-to-date with her cervical cancer screening, goes to [facility], requested copy of report of Pap smear. She received her COVID booster 2 weeks ago at [facility] and is scheduled to get her flu shot later this month. Up-to-date with her pneumococcal vaccine and Tdap. (2) HLD (hyperlipidemia): Code(s): E78.5 - Hyperlipidemia, unspecified Qualifiers: Hyperlipidemia type: unspecified Qualified Code(s): E78.5 - Hyperlipidemia, unspecified Plan: Recently started on atorvastatin 40 mg daily by her endocrine specialist last month, stressed importance of combining this with a low-cholesterol diet and regular exercise, at least 30 minutes 3 to 4 times a week. Advised patient to make healthy food choices, eat more fruits, vegetables, whole grains, wild caught fish and low-fat dairy. Limit amount of meat and fried or fatty food products, as well as processed foods and fast foods. 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 Orders: Orders Basic Metabolic Panel Fasting Today E10.49 - Type 1 diabetes mellitus with other diabetic neurological complication, E55.9 - Vitamin D deficiency, unspecified, E78.5 - Hyperlipidemia, unspecified, E89.0 - Postprocedural hypothyroidism, I10 - Essential (primary) hypertension, Z00.01 - Encounter for general adult medical examination with abnormal findings Alanine Aminotransferase Today E10.49 - Type 1 diabetes mellitus with other diabetic neurological complication, E55.9 - Vitamin D deficiency, unspecified, E78.5 - Hyperlipidemia, unspecified, E89.0 - Postprocedural hypothyroidism, I10 - Essential (primary) hypertension, Z00.01 - Encounter for general adult medical examination with abnormal findings Aspartate Amino Transferase Today E10.49 - Type 1 diabetes mellitus with other diabetic neurological complication, E55.9 - Vitamin D deficiency, unspecified, E78.5 - Hyperlipidemia, unspecified, E89.0 - Postprocedural hypothyroidism, I10 - Essential (primary) hypertension, Z00.01 - Encounter for general adult medical examination with abnormal findings Vitamin D 25-OH Total Today E10.49 - Type 1 diabetes mellitus with other diabetic neurological complication, E55.9 - Vitamin D deficiency, unspecified, E78.5 - Hyperlipidemia, unspecified, E89.0 - Postprocedural hypothyroidism, I10 - Essential (primary) hypertension, Z00.01 - Encounter for general adult medical examination with abnormal findings Coding Level of Care Code Est Pt Prev Care 18-39y(26059) Diagnoses Annual visit for general adult medical examination with abnormal findings Z00.01 Hyperlipidemia, unspecified hyperlipidemia type E78.5 Hyperlipidemia type: unspecified Vitamin D deficiency E55.9 Postoperative hypothyroidism E89.0 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
== END 2024-03-30 08:54 | disposition home or self-care (01) ==
PROVIDERS: PCP Internal Medicine; Visit Provider Internal Medicine
DX: Z00.00 Encounter for general adult medical examination without abnormal findings (principal); E10.49 Type 1 diabetes mellitus with other diabetic neurological complication; E66.01 Morbid (severe) obesity due to excess calories; Z68.44 Body mass index [BMI] 60.0-69.9, adult; E78.5 Hyperlipidemia, unspecified; E55.9 Vitamin D deficiency, unspecified; E89.0 Postprocedural hypothyroidism

== ENCOUNTER → 2024-03-30 08:07 | Outpatient (BNVA) | payer OTHER, SELFPAY | PROVIDERS: PCP Internal Medicine; Visit Provider Internal Medicine | DX: Z00.01 Encounter for general adult medical examination with abnormal findings (principal); E78.5 Hyperlipidemia, unspecified; E55.9 Vitamin D deficiency, unspecified; E89.0 Postprocedural hypothyroidism; E10.49 Type 1 diabetes mellitus with other diabetic neurological complication; E66.01 Morbid (severe) obesity due to excess calories; Z68.44 Body mass index [BMI] 60.0-69.9, adult; Z79.899 Other long term (current) drug therapy | CPT/HCPCS: 96127 ==

== ENCOUNTER 2024-08-25 07:54 | Outpatient (REF) | payer OTHER, SELFPAY ==
--- OUTSIDE RECORDS SUMMARY | 2024-08-25 07:58 | XMS_ITS | Clinical Summary ---
Author Organization [facility] Facility Address [address] [place] [id number] Care Team Providers Care Child Nutrition Manager Name Role Phone Cosmo Magaña MD Primary Care Provider [phone] Medications calcium carbonate (OS-MALIKA) 1250 (500 Ca) MG tablet Take 1 tablet by mouth 1 (one) time each day Active Cholecalciferol (Vitamin D3) 50 MCG (2000 UT) tablet Take by mouth Active levothyroxine (SYNTHROID, LEVOTHROID) 175 MCG tablet Take 175 mcg by mouth 1 (one) time each day Active insulin lispro (HumaLOG) 100 UNIT/ML injection Inject under the skin 3 (three) times a day before meals Active Active Problems Problem Noted Date Diagnosed Date Proteinuria 05/03/2022 Essential (primary) hypertension 05/03/2022 Vitamin D deficiency 05/03/2022 Malignant neoplasm of thyroid gland 07/08/2020 Overview (05/03/2022): Complete thyroidectomy 2020 Advised to iodine treatment Acquired hypothyroidism 09/06/2017 Obesity 09/06/2017 Overview (05/03/2022): Last Assessment & Plan: Notes 30lb weight gain since thyroid surgery Type 1 diabetes mellitus 09/06/2017 Overview (05/03/2022): DIABETES HISTORY Diagnosis - type 1 diabetes, dx at age 2 Treatment history - was on insulin pump but off because of insurance (had been on mother's insurance); Tresiba, Novolog Last Assessment & Plan: We discussed a significant reduction of Tresiba to reduce risk of overnight hypoglycemia, will decrease from 50u once daily to 40u once daily and monitor trends Change in background insulin to more appropriate levels will likely cause increase in need of mealtime insulin particularly early in the day, currently the level of basal insulin is leading to reduced use of mealtime dosing, Lise is encouraged to follow patterns and be aware that she may need to increase mealtime Novolog use Strongly urged to take Novolog prior to eating, her tendency to take this postprandially after lunch is consistently leading to high blood sugars during the latter part of the day We discussed the effects of different types of exercises on blood sugar, her current long duration of HIIT is likely driving blood sugar up then hours later she is more insulin sensitive, it may be more prudent to balance her workouts with high and lower intensity exercises to balance effects on blood sugar Advised to call with any questions or concerns Family History Medical History Relation Comments Myocarditis Father Hyperlipidemia Mother Pulmonary embolism Mother Relation Status Comments Father Mother Social History Tobacco Use Types Packs/Day Years Used Date Smoking Tobacco: Never Assessed Comments Unknown Sex and Gender Information Value Date Recorded Sex Assigned at Not on file Legal Sex Female 8:31 AM EDT Gender Identity Not on file Sexual Orientation Not on file Plan of Treatment Health Maintenance Due Date Last Done Comments Pneumococcal Vaccine: Pediat rics (0 to 5 Years) and At-Risk Patients (6 to 64 Years) (1 of 2 - PCV) 1995 Hepatitis B Vaccine (1 of 3 - 19+ 3-dose series) 04/16 Diabetes: Hemoglobin A1C 05/02/2022 Diabetes: Ophthalmology Exam 05/02/2022 Diabetes: Pedal Pulse Checked 05/02/2022 Diabetes: Sensory Foot Exam 05/02/2022 Diabetes: Visual Foot Exam 05/02/2022 Influenza Vaccine (#1) 2024 Insurance [employer] Care Teams Child Nutrition Manager Relationship Specialty Start Date End Date Cosmo Magaña MD 1962 [facility] [place] [address] PCP - General Internal Medicine 05/01/22
[2024-08-25 09:32] LABS: Free T4 (Free Thyroxine) 1.44 ng/dL (0.71-1.85); Thyroid Stimulating Hormone 0.12 uIU/mL (0.32-4.0)
[2024-08-31 05:54] LABS: Thyroglobulin <0.1 ng/mL; Thyroglobulin Antibodies <1 IU/mL (< or = 1)
== END 2024-08-25 07:55 | disposition home or self-care (01) ==
LOC: HO.LAB 07:54
PROVIDERS: PCP Internal Medicine; Visit Provider Student in an Organized Health Care Education/Training Program
DX: E89.0 Postprocedural hypothyroidism (principal); Z85.850 Personal history of malignant neoplasm of thyroid
CPT/HCPCS: 36415; 84432; 84439; 84443; 86800

== ENCOUNTER 2024-08-27 07:40 | Outpatient (AMB) | payer OTHER, SELFPAY ==
[2024-08-27 07:42] VITALS: BP 110/86; PULSE 96; O2SAT 97; BMI 64.6
--- NOTE | 2024-08-27 07:42 | MHC.OFFVIS ---
Vital Signs 08/27/24 07:42 Height 5 ft 2 in Weight 353 lb 2.888 oz BMI 64.6 BP 110/86 Blood Pressure Location Lt brachial Position Sitting Pulse 96 Pulse Source Pulse Oximeter Pulse Oximetry (%) 97 Oxygen Delivery Method Room Air Intake Visit Reasons: f/u 6 mos for thyroid cancer with Dr. Davis Intake Note: Patient present today for thyroid cancer follow up visit. High [facility] Justice Required: No Accompanied by: Self / Same As Patient Allergies No Known Allergies Allergy (Verified 08/27/24 07:48) HPI Comments Details: 34-year-old female coming in today for follow up of papillary thyroid cancer status post right hemithyroidectomy [place] [address] Parth Dutta at [facility], which revealed PTC 1.5 cm with no extrathyroidal extension, no angioinvasion, no lymphatic invasion, uninvolved margins, 0/2 lymph nodes positive, AJCC stage I pT1b N0 a, HEIDI low risk of recurrence, status post completion thyroidectomy 03/23/2020, with pathology revealing 2 foci of PTC measuring 1.6 cm and 0.2 cm, with a 1.6 cm foci having ill-defined margins and capsular invasion, moving her up to HEIDI intermediate risk of recurrence. Status post I 131 remnant ablation with 29.1 mCi of I 131 08/24/2020, who is currently HEIDI excellent response to therapy. She also sees our practice for type 1 diabetes mellitus, this was not addressed today,. History of PTC in detail 2020: Noted to have goiter on exam and underwent thyroid ultrasound which revealed multinodular thyroid 08/06/2019: FNA biopsy: Of a right midpole nodule measuring 1 cm with peripheral calcification came back as [place] category 5, suspicious for PTC. 2020: Right hemithyroidectomy with Dr. Parth Dutta at [facility] which revealed PTC 1.5 cm with no extrathyroidal extension, no angioinvasion, no lymphatic invasion, uninvolved margins, 0/2 lymph nodes positive, AJCC stage I pT1b N0 a, HEIDI low risk of recurrence 03/23/2020, status post completion thyroidectomy with pathology revealing 2 foci of PTC measuring 1.6 cm and 0.2 cm, with a 1.6 cm foci having ill-defined margins and capsular invasion, moving her up to HEIDI intermediate risk of recurrence. 08/24/2020: Status post I 131 remnant ablation with 29.1 mCi of I 131 08/20/2020: TSH 45.3, TG less than 0.1, TG antibody negative Whole-body scan subsequent to treatment showed faint uptake it within the neck, a lack of physiologic activity throughout the body which was concerning for her a high iodine load prior to treatment. 10/01/2020: TSH 16.71, TG less than 0.1, TG antibody undetectable. Dose of levothyroxine was increased to 200 mcg p.o. daily. 01/07/2021: TSH 3.81, TG less than 0.1, TG antibody less than 1. Change to Tirosint 200 mcg p.o. daily due to suspected absorption issues with levothyroxine. 12/07/2021: Ultrasound neck showed normal lymph nodes 06/07/2023: Ultrasound neck showed left level 5A, 1.8 X 0.9 X 1.4 cm node with cortical thickening and a left level 3, 2 X 0.8 X 1 cm lymph node with borderline cortical thickening. Patient was just recovering from skul-uknj-rinvs disease. 10/2023: Saw Dr. Ugarte at [facility], ultrasound neck showed normal-appearing lymph nodes. Interval history Reports some fullness /pressure in neck but feels there is a lot of fat tissue deposition due to weight gain No changes to voice Denies any symptoms of hyper or hypothyroidism. 08/25/2024: TSH 0.12, free T4 1.44. Thyroglobulin levels pending She is currently on Tirosint 250 mcg daily as 200+ 50 mcg capsules daily. Physical exam General: sitting comfortably in no acute distress HEENT: normocephalic/atraumatic, Neck: supple, symmetrical Cardiac: normal heart sounds Pulm: normal breath sounds B/L, no added breath sounds Laboratory Tests 11/06/18 02/21/19 12/11/19 07:24 08:40 12:48 Free T4 1.24 1.06 0.77 TSH Thyroglobulin Thyroglobulin Antibody 08/13/20 08/20/20 08/24/20 09:10 11:10 08:25 Free T4 0.75 TSH 71.84 H 45.30 H Thyroglobulin <0.1 L <0.1 L Thyroglobulin Antibody <1 10/01/20 01/07/21 03/11/21 11:15 09:08 08:18 Free T4 1.64 1.53 TSH 16.71 H 3.81 0.74 Thyroglobulin <0.1 L <0.1 L <0.1 L Thyroglobulin Antibody <1 <1 <1 06/03/21 10/21/21 02/24/22 09:49 10:04 09:57 Free T4 1.67 1.25 1.08 TSH 0.27 L 0.19 L 5.90 H Thyroglobulin <0.1 L <0.1 L <0.1 L Thyroglobulin Antibody <1 <1 <1 04/28/22 12/15/22 04/26/23 10:21 10:57 09:28 Free T4 1.42 1.00 TSH 0.81 2.19 5.38 H Thyroglobulin <0.1 <0.1 Thyroglobulin Antibody <1 <1 08/23/23 11/26/23 02/22/24 07:36 09:27 10:57 Free T4 1.11 1.18 1.25 TSH 4.12 H 5.12 H 0.62 Thyroglobulin <0.1 Thyroglobulin Antibody <1 08/25/24 08:10 Free T4 1.44 TSH 0.12 L Thyroglobulin Thyroglobulin Antibody US SOFT TISSUE NECK 06/07/23 CLINICAL INFORMATION: Personal history of malignant neoplasm of thyroid. COMPARISON: Ultrasound soft tissue head/neck 12/07/2021. Ultrasound soft tissue head/neck thyroid dated 04/15/2019. TECHNIQUE: Ultrasound of the neck soft tissues is performed with high- frequency alfaro-scale imaging and color Doppler. Limited visualization due to body habitus. FINDINGS: THYROID BED: Prior thyroidectomy. No residual thyroid tissue demonstrated in the thyroid bed. No cystic or solid nodules demonstrated in the thyroid bed. RIGHT NECK SOFT TISSUES: Right level 1B 0.8 x 0.5 x 0.8 cm node with echogenic hilum, previously 0.8 x 0.5 x 0.7 cm. Right level 1B 1.7 x 0.6 x 0.8 cm node with echogenic hilum was not identified on the prior exam. LEFT NECK SOFT TISSUES: Left level 5A 1.8 x 0.9 x 1.4 cm node was not identified on the prior study. This node appears atypical with diffuse internal echoes and cortical thickening. Left level 3 node measures 2.0 x 0.8 x 1.0 cm with echogenic hilum and borderline cortical thickening, not previously identified. US/US soft tiss head and/or neck IMPRESSION: 1. Bilateral cervical nodes as detailed above. Correlation with clinical exam recommended to determine further management. Recommend follow up ultrasound in 3 months. 2. If clinically indicated further evaluation of the neck soft tissues and nodes may be performed with CT soft tissue neck with intravenous contrast. US SOFT TISSUE NECK 12/07/2021 CLINICAL INFORMATION: Personal history of malignant neoplasm of thyroid. COMPARISON: Ultrasound-guided thyroid biopsy dated 08/06/2019. Ultrasound soft tissue head/neck thyroid dated 04/15/2019. TECHNIQUE: Ultrasound of the neck soft tissues is performed with high- frequency alfaro-scale imaging and color Doppler. FINDINGS: THYROID BED: Prior thyroidectomy. No residual thyroid tissue demonstrated in the thyroid bed. No cystic or solid nodules demonstrated in the thyroid bed. RIGHT NECK SOFT TISSUES: Scattered architecturally normal nodes are present. The nodes show normal fatty hilus, normal cortical thickness, and no cystic change or calcification. No abnormal color flow. The largest nodes are as follows: Level IB: 0.76 x 0.45 x 0.72 cm. Normal dianelys architecture. Level IA: 0.72 x 0.60 x 0.52 cm. Normal dianelys architecture. LEFT NECK SOFT TISSUES: Scattered architecturally normal nodes are present. The nodes show normal fatty hilus, normal cortical thickness, and no cystic change or calcification. No abnormal color flow. No lymph nodes seen on the left. US/US soft tiss head and/or neck IMPRESSION: 1. Benign right neck lymph nodes. No abnormal left neck lymph nodes seen. 2. If clinically indicated further evaluation of the neck soft tissues and nodes may be performed with CT soft tissue neck with intravenous contrast. 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 Hypocalcemia Postoperative hypothyroidism History of thyroid cancer Vitamin D deficiency HLD (hyperlipidemia) HTN (hypertension) Onychomycosis of multiple toenails with type 1 diabetes mellitus Surgical History S/P trigger finger release History of foot surgery Hx of thyroidectomy History of dental surgery Family History Father Myocardial infarction Pacemaker Mother Pulmonary embolism High cholesterol Social History Household Members: Spouse Housing: House Patient Tobacco Use Status: Never used Tobacco e-Cigarette/Vaping Use: Never Used Second Hand Smoke Exposure: No service: No Current occupational status: employed 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 Parth Dutta at [facility], which revealed PTC 1.5 cm with no extrathyroidal extension, no angioinvasion, no lymphatic invasion, uninvolved margins, 0/2 lymph nodes positive, AJCC stage I pT1b N0 a, HEIDI low risk of recurrence, status post completion thyroidectomy 03/23/2020, with pathology revealing 2 foci of PTC measuring 1.6 cm and 0.2 cm, with a 1.6 cm foci having ill-defined margins and capsular invasion, moving her up to HEIDI intermediate risk of recurrence. Status post I 131 remnant ablation with 29.1 mCi of I 131 08/24/2020, who is currently HEIDI excellent response to therapy. Ultrasound of the neck last done in October 2023 at [facility] did not show any abnormal lymph nodes. She has had an undetectable stimulated and non stimulated thyroglobulin level. Labs last done 08/25/2024, tumor markers pending. TSH from 08/25/2024 was 0.12, given excellent response to therapy goal TSH is 0.5-2. We will reduce the dose of Tirosint. She is on Tirosint because she could never reach goal TSH on levothyroxine, suggesting absorption issues. Plan: -follow up thyroglobulin markers from 08/25/2024 -decreased Tirosint to 225 mcg daily from 250 mcg daily -TSH and free T4 in 6 weeks -ordered ultrasound of the neck -follow up in 8 weeks to discuss results, at that time we will also address her type 1 diabetes mellitus (2) Postoperative hypothyroidism: Code(s): E89.0 - Postprocedural hypothyroidism Category: Medical Plan: TSH from 08/25/2024 was 0.12, given excellent response to therapy goal TSH is 0.5-2. We will reduce the dose of Tirosint. She is on Tirosint because she could never reach goal TSH on levothyroxine, suggesting absorption issues. Plan: -decreased Tirosint to 225 mcg daily from 250 mcg daily -TSH and free T4 in 6 weeks Plan I spent 30 minutes in reviewing the record, seeing the patient and documenting in the medical record. Orders: Orders Thyroid Stimulating Hormone 6 Weeks E89.0 - Postprocedural hypothyroidism, Z85.850 - Personal history of malignant neoplasm of thyroid Lipid Panel 6 Weeks E10.49 - Type 1 diabetes mellitus with other diabetic neurological complication Platelet Count 6 Weeks E10.49 - Type 1 diabetes mellitus with other diabetic neurological complication Free T4 (Free Thyroxine) 6 Weeks E89.0 - Postprocedural hypothyroidism, Z85.850 - Personal history of malignant neoplasm of thyroid US soft tiss head and/or neck 6 Weeks E89.0 - Postprocedural hypothyroidism, Z85.850 - Personal history of malignant neoplasm of thyroid Comprehensive [place]. Panel Fast 6 Weeks E10.49 - Type 1 diabetes mellitus with other diabetic neurological complication Microalbumin, Random (w Creat) 6 Weeks E10.49 - Type 1 diabetes mellitus with other diabetic neurological complication Hemoglobin A1c 6 Weeks E10.49 - Type 1 diabetes mellitus with other diabetic neurological complication Medications: New Tirosint (levothyroxine) Take 25 mcg pill daily with 200 mcg pill Tirosint brand name only ROXY No substitution allowed 25 mcg PO DAILY 30 caps 5RF NS Changed From Tirosint (levothyroxine) 200 mcg PO DAILY 30 caps 3RF NS To Tirosint (levothyroxine) Take 25 mcg pill daily with 200 mcg pill Tirosint brand name only ROXY No substitution allowed 200 mcg PO DAILY 30 caps 5RF NS Discontinued Tirosint (levothyroxine) Take 50 ug with 200 ug to make total of 250 ug Discontinued Reason: Doctor's Order 50 mcg PO DAILY 30 caps 4RF NS Patient Instructions: Decrease Tirosint to 225 mcg daily( 200 plus 25 mcg pill daily) Do blood work in 6 weeks Do US neck Follow up in 8 weeks for both DM1 and Thyroid cancer Coding Level of Care Code Est Pt Level 4 (63200) Complex EM visit Add On G2211 Diagnoses History of thyroid cancer Z85.850 Postoperative hypothyroidism E89.0 Time Spent (min) 30
--- OUTSIDE RECORDS SUMMARY | 2024-08-27 07:45 | XMS_ITS | Patient Health Record ---
[facility] Address [address] [place] [address] Care Team Providers Care Technology Advisor Name Role Phone Archana ABDI, Alisson Ugarte Primary Care Provider Un available Minda Miranda Unavailable [phone] Allergies Allergen (clinical drug ingredient) Drug/Non Drug Allergy documented on EMR Reaction Allergy Type Onset Date Status bees (uncoded) swelling Allergy Activ e Reason For Referral No Information Medications Medication SIG (Take, Route, Fr equency, Duration) Notes Start Date End Date Status Synthroid Active Atorvastatin Calcium Active NovoLOG Active Immunizations Vaccine Route Administration Date Status Comme nts Influenza Unknown 03/26/2017 Refused Social History Tobacco Use: Social History Observation Description Date Details (start date - stop date) Never Smoker NA - NA Tobacco Use/Smoking Question Answer Notes Are you a: nonsmoker Additional Findings: Tobacco Non-User Current no n-smoker Alcohol Screen Question Answer Notes Did you have a drink containing alcohol in the p ast year? Yes Points 0 Interpretation Negative Tobacco use other than smoking: Question Answer Notes Are you an other tobacco user? No Problems Problem Type SNOMED Code ICD Code Onset Dates Problem Status W/U Status Risk Notes Problem Tinea unguium (563640722) Tinea unguium (B35.1) Active confirmed Problem Type I diabetes mellitus without complication (735484741) Type 1 diabetes mellitus without complications (E10.9) Active confirmed Plan Of Treatment Next Appt Details Provider Name:Minda miller, 10/26/2024 08:30:00 AM, [address], [place], [address], Insurance Providers Payer Name Payer Address Payer Phone Subscriber Number Group Number Insured Name Patient Relationship to Insured Coverage Start Date Coverage End Date [facility] [address] [place] [id number] Rosemary Brooks Self - patient is the insured Medical (General) History Medical History History ICD Code Cholesterol Diabetic Chicken pox Thyroid disorder Surgical History Surgery Date(Month/Year) dental surgery 07/2006
--- OUTSIDE RECORDS SUMMARY | 2024-08-27 07:45 | XMS_ITS | Clinical Summary ---
Author Organization [facility] Medical [facility] Facility Address [address] [place] [address] Care Team Providers Care Search Engine Optimization Analyst Name Role Phone Cosmo Magaña MD Primary Care Provider [phone]- [phone] Medications calcium carbonate (OS-MALIKA) 1250 (500 Ca) [...] Exam 05/02/2022 Influenza Vaccine (#1) 2024 Insurance [facility] Care Teams Search Engine Optimization Analyst Relationship Specialty Start Date End Date Cosmo Magaña MD 1962 [facility] [address] PCP - General Internal Medicine 05/01/22
== END 2024-08-27 08:14 | disposition home or self-care (01) ==
PROVIDERS: PCP Internal Medicine; Visit Provider Student in an Organized Health Care Education/Training Program
DX: Z85.850 Personal history of malignant neoplasm of thyroid (principal); E89.0 Postprocedural hypothyroidism
CPT/HCPCS: 99214

== ENCOUNTER 2024-10-31 08:26 | Outpatient (REF) | payer OTHER, SELFPAY ==
--- OUTSIDE RECORDS SUMMARY | 2024-10-31 08:30 | XMS_ITS ---
Author Organization [facility] Address [address] [place] [address] Care Team Providers Care Cycle Manager Name Role Phone Archana ABDI, Alisson Ugarte Primary Care Provider Un available Minda Miranda [phone] REASON FOR VISIT CREDIT RESOLUTION REPRESENTATIVE PPWK Entered Encounters Encounter Location Date Provider Diagnosis [facility] [address] [place] [address] 10/02/2024 Minda Miranda Plan Of Treatment Next Appt Details Provider Name:Minda miller, 01/04/2025 09:15:00 AM, [address] [facility], [place], [address], Progress Notes * Carly BROOKSDOB: 1990 (34 yo F)Acc No.[id number]:10/02/2024 Patient:?Carly BROOKS :1990???Age:34 Y???Sex:Female Address[address] [place], [address] * true * Date:? Generated for Printi ng/Fatracieg/eTransmitting on:?10/31/2024 08:30 AM EDT
--- OUTSIDE RECORDS SUMMARY | 2024-10-31 08:30 | XMS_ITS | Clinical Summary ---
Author Organization [facility] Medical [facility] Facility Address [address] [place] [address] Care Team Providers Care Silver Solderer Name Role Phone Cosmo Magaña MD Primary Care Provider [phone]- [phone] Medications calcium carbonate (OS-MALIKA) 1250 (500 Ca) [...] Health Maintenance Due Date Last Done Comments Hepatitis B Vaccine (1 of 3 - 19+ 3-dose series) 04/16 Pneumococcal Vaccine: Peds ( 0 to 5 Years) and At-Risk Patients (6 to 49 Years) (1 of 2 - PCV) 2008 Diabetes: Hemoglobin A1C 05/02/2022 Diabetes: Ophthalmology Exam 05/02/2022 Diabetes: Pedal Pulse Checked 05/02/2022 Diabetes: Sensory Foot Exam 05/02/2022 Diabetes: Visual Foot Exam 05/02/2022 Influenza Vaccine (Season Ended) 2025 Insurance [facility] Care Teams Silver Solderer Relationship Specialty Start Date End Date Cosmo Magaña MD 1962 [facility] [place] [address] PCP - General Internal Medicine 05/01/22
--- OUTSIDE RECORDS SUMMARY | 2024-10-31 08:31 | XMS_ITS ---
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 Name Role Phone Archana ABDI, Alisson Ugarte Primary Care Provider Un available AngelMinda miller Unavailable [phone] Allergies Allergen (clinical drug ingredient) Drug/Non Drug Allergy documented on EMR Reaction Allergy Type Onset Date Status bees (uncoded) swelling Allergy Activ e REASON FOR VISIT Fungal Nails, Skin Problem Medications Medication SIG (Take, Route, Fr equency, Duration) Notes Start Date End Date Status Synthroid Unknown NovoLOG Unknown Ketoconazole 2 % 1 application Apply a thin layer to externally to feet, even between toes Twice a day for 30 days Active Atorvastatin Calcium Active HumaLOG Active Tirosint Active Social History Tobacco Use: Social History Observation Description Date Details (start date - stop date) Never Smoker NA - NA Tobacco use other than smoking: Question Answer Notes Are you an other tobacco user? No Tobacco Control (Standard) Question Answer Notes Tobacco use: Nonsmoker Additional Findings: Tobacco non-user Current no nsmoker AUDIT-C (Standard) Question Answer Notes Did you have a drink contain ing alcohol in the past year? Yes How often did you have a dri nk containing alcohol in the past year? Monthly or less (1 point) How many drinks did you have on a typical day when you were drinking in the past year? 1 or 2 drinks (0 point) How often did you have six o r more drinks on one occasion in the past year? Less than monthly (1 point) Points 2 Interpretation Negative Vital Signs Height 5ft 5in in 10/26/2024 Weight 325 lbs 10/26/2024 BMI 54.08 kg/m2 10/26/2024 Blood pressure systolic 140 mm Hg 10/27/19 25 Blood pressure diastolic 88 mm Hg 025 Encounters Encounter Location Date Provider Diagnosis [facility] [address] [address] 10/26/2024 Minda Miranda Onychomycosis B35.1 ; Tinea pedis of both feet B35.3 ; Type 1 diabetes mellitus without complications E10.9 and Lower extremity edema R60.0 Assessments Encounter Date Diagnosis (ICD Code) Assessment Notes Treatment Notes Treatment Clinical Notes Section Notes 10/26/2024 Onychomycosis (ICD-10 - B35.1) 10/26/2024 Tinea pedis of both feet (ICD-10 - B35.3) 10/26/2024 Type 1 diabetes mellitus without complications (ICD-10 - E10.9) 10/26/2024 Lower extremity edema (ICD-10 - R60.0) Plan Of Treatment Medication Medication Name Sig Start Date Stop Date Notes Ketoconazole 2 % 1 application Apply a thin layer to externally to feet, even between toes Twice a day for 30 days Pending Test Test Name Order Date *Liver Function Test (LFT) 10/26/2024 Next Appt Details Follow Up: 2 Months, Reason: Provider Name:Minda miller, 01/04/2025 09:15:00 AM, [address] [place] [address], [place], [address], Progress Notes * Carly BROOKSDOB: 1990 (34 yo F)Acc No.[id number]:10/26/2024 Progress Notes Patient:?Carly BROOKS Provider:?Minda Miranda DPM :1990???Age:34 Y???Sex:Female D ate:10/26/2024 [facility] [id number] Pcp:Anish Gordon Subjective: * Chief Complaints: * ???Fungal NailsSkin Problem * HPI: ???Painful Nails:?Nature:?aching, tender, discolored, thick.?Location:?, Great toe, 2nd toe, 3rd toe, Left foot.?Duration:?, several years.?Course:?worse.?Aggravated by:?shoegear causing difficulty standing/walking.?Treatments:?OTC Topical Antifungal, was not successful.?Skin problems:?Nature:?scaling , redness.?Location:?Left.?Duration:?several days.?Course:?worse.?Treatments:?Topical OTC antifungal cream has not relieved condition.? * ROS:?General/Constitutional:?Nausea?denies.?Vomiting?denies.?Hunger Thirst?denies.?Loss appetite?denies.?Chills?denies.?Fatigue?denies.?Fever?denies.?Night Sweats?denies.?Unexplained weight loss?denies.?Unexplained weight gain?denies.?HEENTM:?Dentures?denies.?Dizziness?denies.?Glasses/contacts?admits.?Retinopathy?adm its.?Blurred/double vision?denies.?TMJ?denies.?Discharge/drainage?denies.?Implants?denies.?Sore throat?denies.?Dental implants?denies.?Hard of hearing ?denies.?Difficulty chewing/swallowing/speaking?denies.?Nose bleeds?denies.?Sore mouth?denies.?Respiratory:?On O xygen?denies.?Pneumonia/pleurisy?denies.?Bronchitis?denies.?Emphysema?denies.?Co ughing?denies.?Cough blood?denies.?Shortness of breath?denies.?Wheezing?denies.?Cardiovascular:?Pacemaker?denies.?MVP?denies.?WPW?denies.?CHF?denies.?Heart attack?denies.?Septal defect?denies.?Rapid beat?denies.?Chest pain ?denies.?Atrial Fib.?denies.?Murmur/Palpitations?denies.?Gastrointestinal:?Hemorrhoids?denies.?Stomach/Abdominal pain?denies.?Dark blood stool?denies.?Irritable bowel ?denies.?Constipation?denies.?Diarrhea?denies.?Hematology:?Swelling?denies.?Clots?denies.?Varicose Veins?denies.?Bruising?denies.?Bleeding problem?denies.?Genitourinary:?Blood urine?denies.?Frequent/Painfu/urination/bladder control?denies.?Kidney stones?denies.?Infection (UTI)?denies.?Nephropathy?denies.?sex trans dis (STD)?denies.?Prostate?denies.?Musculoskeletal:?Hammertoes?denies.?Bunions?denies.?Back Pain?denies.?Muscle Cramps/ Resting?denies.?Muscle cramps / walking?denies.?Generalized aches and pains?denies.?Weakness?denies.?Integ.:?Houser?denies.?Scars?denies.?Corns/calluses?admits.?Ingrown nails?admits.?Painful nails?denies.?Open Sores?denies.?Rashes?denies.?Neurologic:?Difficulty sleeping?denies.?Brain disorder?denies.?Numbness?denies.?Balance t rouble?denies.?Confusion?denies.?Fainting/blackouts?denies.?Tingling?denies.?Fernando mors?denies.? * Medical History:? * Surgical History:?dental gema blue 07/2006thyroidectomy, partial 03/2020,10/2019trigger release 01/2023 * Hospitalization/Major Diagno stic Procedure:?Denies Past Hospitalization * Family History:?Mother: chichi rutledge, diagnosed with Other malignant neoplasm of unspecified site.?Father: alive, heart attack, diagnosed with Other malignant neoplasm of unspecified site, Unspecified essential hypertension, Unspecified heart disease.? * Social History:?Tobacco Use:?Tobacco use other than smoking?Are you an other tobacco user??No ?Tobacco Control (Standard)?Tobacco use:?Nonsmoker ?Additional Findings: Tobacco non-user?Current nonsmoker ???Drugs/Alcohol:?Drugs?Have you used drugs other than those for medical reasons in the past 12 months??No ???Miscellaneous:?Caffeine: yes, frequency:, 1-2 cups per day. ?Children: no. ?Exercise: yes, ball room dancing, gym. ?Marital status: . 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 ???Drug/Alcohol:?AUDIT-C (Standard)?Did you have a drink containing alcohol in the past year??Yes ?How often did you have a drink containing alcohol in the past year??Monthly or less (1 point) ?How many drinks did you have on a typical day when you were drinking in the past year??1 or 2 drinks (0 point) ?How often did you have six or more drinks on one occasion in the past year??Less than monthly (1 point) ?Points?2 ?Interpretation?Negative * Medications:?TakingTirosint HumaLOG Atorvastatin Calcium Taking Tirosint Taking HumaLOG Taking Atorvastatin Calcium UnknownNovoLOG Synthroid Medication List reviewed and reconciled with the patientUnknown NovoLOG Unknown Synthroid Medication List reviewed and reconciled with the patient * Allergies:?bees: swellingyes [Allergies Verified] Objective: * Vitals:?Ht: 5ft 5in, Wt:325, BMI:54.08, Shoe size: 10, BP:140/88mm Hg, BS: 129, Ht-cm: 165.1 cm, Wt-k.42 kg. * ???Past Orders: ???Lab:HEMOGLOBIN A1C (GLYCO HEMOGLOBIN) (Order Date - 04/15/2024) (Collection Date & Time - 04/15/2024 08:42 AM) ? Value Reference Range ?HEMOGLOBIN A1C % (HH) 6.0 * Examination: ???Ophthalmology Referral: ?DIABETES EYE EXAM?Procedure Performed:?Yes ?Date of Exam Performed?04/09/2024 ?Diabetic Retinopathy Screening:?Yes ?Findings of Diabetic Eye Exam:?retinopathy?General Examination: ?GENERAL APPEARANCE:?Reveals a pleasant, alert, well-nourished, well- developed, well hydrated individual, who demonstrates proper attention to hygiene/body habitus, and is in no acute distress, Pt serves as own?historian for office visit today.?ORIENTED:?person, place, and time.?FOOT EXAM:?Lower Extremity Neurological Exam performed:?Yes ?Visual exam of foot performed:?Yes ?Date?10/26/2024?Neurological: ?SENSORY:?Neurological exam reveals intact sensorium, pain sensation normal, vibration sensation intact, pinprick sensation is normal in the lower extremities, Pt denies, anesthesia, burning, paresthesia, tingling, B/L.?DEEP TENDON REFLEXES:?Achilles, 2/4, B/L.?Vascular: ?DP PULSES (B):?3/4, B/L.?PT PULSES (B):?3/4, B/L.?CAPILLARY FILL TIME:?immediate, all digits, B/L.?TROPHIC CONDITION-TEXTURE/ELASTICITY/TURGOR/HAIR GROWTH (B):?normal, B/L.?TEMPERTURE GRADIENT (C):?warm to cool, proximal to distal, B/L.?PIGMENTATION:?normal, B/L.?EDEMA (C):?2/4, Ankle(s), Leg(s), B/L.?Dermatologic: ?SKIN FINDINGS:?Skin exam reveals normal texture, elasticity, and turgor. There are no masses. The interspaces are clear , Skin shows sign(s) of, erythema, scaling, in a moccasin fashion, no fissure(s) present, B/L.?Orthopedic: ?MUSCLE STRENGTH:?5/5 all groups in a symmetrical fashion , B/L.?FOOTWEAR EVALUATION:?fair condition.?Nails: ?NAILS are:?Elongated, overgrown, dystrophic, lytic, greater than 3mm thick, discolored and friable with crumbly malodorous subungual debris, with pain on palpation, TA, T1, T2.? Assessment: * Assessment: 1.?Onychomycosis - B35.1 (Pr imary)???Specify :Chronic problem, Worse (4)???2.?Tinea pedis of both feet - B35.3???Specify :Acute problem, Uncomplicated (3),Rx drug management (4)???3.?Type 1 diabetes mellitus without complications - E10.9???4.?Lower extremity edema - R60.0??? Plan: * Treatment: 2.?Tinea pedis of both feet? Start Ketoconazole Cream, 2 %, 1 application, Apply a thin layer to externally to feet, even between toes, Twice a day, 30 days, 30 Gram, Refills 3.?? * Procedure Codes:? * Preventive Medicine:? ??Counseling:?Discussion:?-04: Office or other outpatient visit for the evaluation and management of a new patient, which required a medically appropriate history and/or examination and MODERATE level of DECISION MAKING for: 1 OR MORE CHRONIC PROBLEM(S) THATS WORSENING, 2 STABLE CHRONIC PROBLEMS, A NEWLY DIAGNOSED PROBLEM WITH UNCERTAIN PROGNOSIS, AN ACUTE COMPLICATED INJURY WITH MULTIPLE TREATMENT OPTIONS, OR AN ACUTE PROBLEM WITH ACCOMPANYING SYSTEMIC SYMPTOMS, THAT POSE(S) A MODERATE RISK OF MORBIDITY. THIS CONDITION MAY ALSO INCLUDE RX DRUG MANAGEMENT, OR A DECISON FOR MINOR SURGERY. The visit on the day of the encounter encompassed interpreting the data and educating the patient as to the nature of their condition, treatment options available according to their individual PMH, meds, allergies, and overall health/living conditions, as well as any potential risks or complications that may occur from a failure to adhere to, and participate in, the recommended course of therapy. The discussion included a complete verbal, and/or written explanation of the examination results, any x-rays taken, the proposed diagnosis, and outline of the treatment plan. A schedule for future care needs was also explained. The patient verbalized an understanding of the instructions at this time and agreed to be an active participant in their treatment. If the patient should think of any questions or concerns after the visit, I have encouraged the patient to call the office.?Diabetic Footcare:?Diabetic footcare is reviewed with the patient..?Edema:?I explained to the patient the possible etiologies for Edema, including genetic, surgery, infection, medications, heart disease, kidney disease, excess dietary salt, and various cancer treatments. We discussed the risks/benefits of the treatment options available including rest, elevation, OTC compression stockings, Rx compression stockings, Unna Boot application, diet modification to limit salt intake, and Rx segmental compression boots provided the absence of CHD in the patients medical history. The advantages and disadvantages of each option were discussed and the patients questions re: risk of infection(cellulitis), medications, diet, and the daily use of compression stockings(not to be worn at night), and consistency in these home treatment regimens for optimal success were answered to their verbally confirmed satisfaction. Given the risk for vessel clotting disease, the patient was instructed to go immediately to the ER of hospital should they experience any calf pain, SOB, or discomfort. Any changes to the patients medication regimen will be performed by the PCP or patients kidney/heart/cancer specialist.?Fungal Nail Counseling:?The patient was counseled on the diagnosis, potential etiologies (including, but not limited to, environmental factors, genetic, immune deficiency), and the multiple treatment options for Onychomycosis. We discussed the risks and benefits of each option from performing no treatment, to ultraviolet light shoe treatment, to laser nail treatment, to applying topical antifungals, to taking oral antifungal medication, to surgical removal of the involved nail(s) with or without performing a matricectomy, or any combination thereof. We discussed the advantages and disadvantages of each of possible treatment and importance for adherence to all the recommended therapies for optimum success. This includes the necessity for weekly emery board self nail home debridements, and control the nail and skin environment as much as possible by only using a fresh, dry pair of shoes/socks each day, as well as keeping the skin as dry as possible through the use of sprays/powders if necessary. The patient was instructed to discard the emery board after use to prevent reinfection of the involved nail(s). We discussed the mycological and visual clinical effectiveness of topical vs oral antifungal treatments as well as each ones potential side effects and/or any patient- specific medication interactions. We discussed the reasons behind the important requirement of regular liver function testing with oral antifungal therapy for safety. Patient questions regarding use, dosage, successful outcomes, blood tests, and possible pharmaceutical interactions were reviewed and the patient verbalized that all answers were clearly understood, The Pt prefers PO treatment, An LFT was ordered in preparation for Lamisil prescription therapy.?Tinea Pedis:?The patient was counseled on the diagnosis, potential etiologies, and treatment options for their skin condition. We discussed the risks and benefits of each option from performing no treatment, to utilizing OTC topical skin creams, prescription topical creams, customized compounded topical medications, and, if necessary, to utilize oral antifungal therapy. We discussed the advantages and disadvantages of each possible treatment and importance for adherence to all the recommended therapies for optimum success and avoid potential complications such as open sore/infection/possible hospitalization. We discussed the potential effectiveness of each topical preparation as well as each ones possible side effects and/or patient medication interactions if oral therapy is selected. Patient questions re: the advantages and disadvantages of each treatment choice, medication use/dosage, successful outcomes, and application consistency were reviewed and the patient verbalized that all answers were clearly understood. The patient was told they can help alleviate symptoms by utilizing moisture absorbant innersoles with activated charcoal and baking soda, applying antifungal sprays daily, aerating toe web spaces at night by putting cotton or lambs wool between the toes, alternating shoe gear daily if possible so they can dry out, changing socks at least once during the day, wearing well-ventilated shoes or sandals. The patient has decided to apply antifungal skin creams to their feet as directed. Rx was sent to their pharmacy at the time of visit.? ??Screening/Special Tests:?Fall Risk?Screening:?No falls in the past year ?FALLS: Screening for Future Fall Risk?Have you had any falls with injury in the past year??No * Follow Up:?2 Months * Images: * Sign off status: Completed true * Provider:Batool Miranda DPM Date:? Generated for Jona rees/Jaciel/Yohanitting on:?10/31/2024 08:30 AM EDT History and Physical Notes * HPI (History of Present Illness) Category Sub-Category Detail Notes Category Not es Painful Nails Aggravated by: shoegear causing difficulty standing/walking Course: worse Duration: , several years Location: , Great toe, 2nd toe , 3rd toe, Left foot Nature: aching, tender, disc olored, thick Treatments: OTC Topical Antifung al, was not successful Skin problems Nature: scaling , redness Location: Left Duration: several days Course: worse Treatments: Topical OTC antifung al cream has not relieved condition Examination Category Sub-Category Detail Notes Category Not es Neurological SENSORY: Neurological exa m reveals intact sensorium, pain sensation normal, vibration sensation intact, pinprick sensation is normal in the lower extremities, Pt denies, anesthesia, burning, paresthesia, tingling, B/L DEEP TENDON REFLEXES: Achilles, 2/4, B/L Dermatologic SKIN FINDINGS: Skin exam reveal s normal texture, elasticity, and turgor. There are no masses. The interspaces are clear , Skin shows sign(s) of, erythema, scaling, in a moccasin fashion, no fissure(s) present, B/L Orthopedic FOOTWEAR EVALUATION: fair condition MUSCLE STRENGTH: 5/5 all groups in a symmetrical fashion , B/L General Examination GENERAL APPEARANCE: Reveals a pleasant, alert, well- nourished, well-developed, well hydrated individual, who demonstrates proper attention to hygiene/body habitus, and is in no acute distress, Pt serves as own historian for office visit today FOOT EXAM: Lower Extremity Neurological Exa m performed:: Yes Visual exam of foot performed:: Yes Date: 10/26/2024 ORIENTED: person, place, and t tiffanie Ophthalmology Referral DIABETES EYE EXAM Procedure Perform ed:: Yes ?Date of Exam Performed: 04/09/2024 Diabetic Retinopathy Screening:: Yes Findings of Diabetic Eye Exam:: retinopa thy Vascular DP PULSES (B): 3/4, B/L PT PULSES (B): 3/4, B/L CAPILLARY FILL TIME: immediate, all digi ts, B/L TEMPERTURE GRADIENT (C): warm to cool, p roximal to distal, B/L TROPHIC CONDITION-TEXTURE/ELASTICITY/TURGOR/HAIR GROWTH (B): normal, B/L EDEMA (C): 2/4, Ankle(s), Leg(s ), B/L PIGMENTATION: normal, B/L Nails NAILS are: Elongated, overg rown, dystrophic, lytic, greater than 3mm thick, discolored and friable with crumbly malodorous subungual debris, with pain on palpation, TA, T1, T2
[2024-10-31 12:08] LABS: Platelet Count 382 X10*3/uL (160-400)
[2024-10-31 12:49] LABS: Alanine Aminotransferase 16 U/L (0-31); Albumin Level 3.7 g/dL (3.5-5.0); Albumin Level 3.8 g/dL (3.5-5.0); Anion Gap 11 (12-20); Aspartate Amino Transferase 20 U/L (5-31); Bilirubin Direct 0.2 mg/dL (0.0-0.5); Bilirubin Total 0.4 mg/dL (0.0-1.0); Blood Urea Nitrogen 14 mg/dL (9-16); Calcium 8.7 mg/dL (8.4-10.2); Carbon Dioxide 25 mmol/L (22-29); Chloride 106 mmol/L (96-108); Cholesterol 193 mg/dL (<200); Estimated Glomerular Filt Rate > 60; Free T4 (Free Thyroxine) 1.21 ng/dL (0.71-1.85); Glucose Fasting 154 mg/dL (60-99); HDL Cholesterol 55 mg/dL (>40); LDL Cholesterol Calculated 129 mg/dL (<100); Potassium 4.4 mmol/L (3.3-5.1); Sodium 138 mmol/L (135-145); Thyroid Stimulating Hormone 0.23 uIU/mL (0.32-4.0); Total Protein 7.1 g/dL (6.5-8.0); Total Protein 7.2 g/dL (6.5-8.0); Triglycerides 49 mg/dL (<150)
[2024-10-31 12:51] LABS: Estimated Average Glucose 128 mg/dL; Hemoglobin A1C 233.9619 umol/L; Hemoglobin A1c % 6.1 % (<6.0); Total Hemoglobin (HGBA1C) 5472.2696 umol/L
[2024-10-31 12:58] LABS: Creatinine Urine 65.28 mg/dL; Microalbumin Urine < 5.0 mg/L
[2024-10-31 13:12] LABS: Alkaline Phosphatase 109 U/L (39-117)
[2024-10-31 13:13] LABS: Alkaline Phosphatase 109 U/L (39-117)
== END 2024-10-31 08:27 | disposition home or self-care (01) ==
LOC: HO.HMGCLDS 08:26
PROVIDERS: PCP Internal Medicine; Referring Provider Podiatrist; Visit Provider Student in an Organized Health Care Education/Training Program
DX: B35.1 Tinea unguium (principal); E10.49 Type 1 diabetes mellitus with other diabetic neurological complication; Z85.850 Personal history of malignant neoplasm of thyroid; E89.0 Postprocedural hypothyroidism
CPT/HCPCS: 36415; 80053; 80061; 80076; 82043; 82248; 82570; 83036; 84439; 84443; 85049

== ENCOUNTER 2024-11-06 08:14 | Outpatient (AMB) | payer OTHER, SELFPAY ==
--- NOTE | 2024-11-06 08:17 | A.OFFVIS_ITS ---
Vital Signs 3 11/06/24 08:19 Height 5 ft 2 in Weight 356 lb 11.327 oz BMI 65.2 BP 132/72 Blood Pressure Location Lt brachial Position Sitting Pulse 84 Pulse Source Pulse Oximeter Pulse Oximetry (%) 97 Oxygen Delivery Method Room Air Intake Visit Reasons: T1DM on pump/ thyroid cancer Intake Note: Patient present today for Type 1 Diabetes Mellitus and thyroid cancer office visit. Last Diabetic eye exam: 01/24/24 Last Podiatry Visit: 09/2024 Random Glucose: 135 mg/dl HgA1C: 6.1% 10/31/24 Weight Inspector Required: No Accompanied by: Self / Same As Patient Allergies No Known Allergies Allergy (Verified 11/06/24 08:25) Medication List - Last Reconciled 11/06/24 by Andreia Davis MD atorvastatin 40 mg PO DAILY cholecalciferol (vitamin D3) 125 mcg PO DAILY insulin lispro (Humalog U-100 Insulin) 150 units (1.5 mL) subcut DAILY Tirosint (levothyroxine) 25 mcg PO DAILY NS Tirosint (levothyroxine) 200 mcg PO DAILY NS vitamin B complex 1 cap PO DAILY HPI Comments Details: 34-year-old female coming in today for follow up of papillary thyroid cancer status post right hemithyroidectomy [place] [address] Parth Dutta at [facility], which revealed PTC 1.5 cm with no extrathyroidal extension, no angioinvasion, no lymphatic invasion, uninvolved margins, 0/2 lymph nodes positive, AJCC stage I pT1b N0 a, HEIDI low risk of recurrence, status post completion thyroidectomy 03/23/2020, with pathology revealing 2 foci of PTC measuring 1.6 cm and 0.2 cm, with a 1.6 cm foci having ill-defined margins and capsular invasion, moving her up to HEIDI intermediate risk of recurrence. Status post I 131 remnant ablation with 29.1 mCi of I 131 08/24/2020, who is currently HEIDI excellent response to therapy. She is also here for follow up of type 1 diabetes mellitus. History of PTC in detail 2020: Noted to have goiter on exam and underwent thyroid ultrasound which revealed multinodular thyroid 08/06/2019: FNA biopsy: Of a right midpole nodule measuring 1 cm with peripheral calcification came back as [place] category 5, suspicious for PTC. 2020: Right hemithyroidectomy with Dr. Parth Dutta at [facility] which revealed PTC 1.5 cm with no extrathyroidal extension, no angioinvasion, no lymphatic invasion, uninvolved margins, 0/2 lymph nodes positive, AJCC stage I pT1b N0 a, HEIDI low risk of recurrence 03/23/2020, status post completion thyroidectomy with pathology revealing 2 foci of PTC measuring 1.6 cm and 0.2 cm, with a 1.6 cm foci having ill-defined margins and capsular invasion, moving her up to HEIDI intermediate risk of recurrence. 08/24/2020: Status post I 131 remnant ablation with 29.1 mCi of I 131 08/20/2020: TSH 45.3, TG less than 0.1, TG antibody negative Whole-body scan subsequent to treatment showed faint uptake it within the neck, a lack of physiologic activity throughout the body which was concerning for her a high iodine load prior to treatment. 10/01/2020: TSH 16.71, TG less than 0.1, TG antibody undetectable. Dose of levothyroxine was increased to 200 mcg p.o. daily. 01/07/2021: TSH 3.81, TG less than 0.1, TG antibody less than 1. Change to Tirosint 200 mcg p.o. daily due to suspected absorption issues with levothyroxine. 12/07/2021: Ultrasound neck showed normal lymph nodes 06/07/2023: Ultrasound neck showed left level 5A, 1.8 X 0.9 X 1.4 cm node with cortical thickening and a left level 3, 2 X 0.8 X 1 cm lymph node with borderline cortical thickening. Patient was just recovering from [id number] disease. 10/2023: Saw Dr. Ugarte at [facility], ultrasound neck showed normal- appearing lymph nodes. Interval history Reports some fullness /pressure in neck but feels there is a lot of fat tissue deposition due to weight gain No changes to voice Denies any symptoms of hyper or hypothyroidism. 08/25/2024: TSH 0.12, free T4 1.44. TG less than 0.1, TG less than 1 08/27/2024: Tirosint reduced from 250 mcg daily to 225 mcg daily 11/22/2024: TSH 0.23, free T4 1.21 Did not do neck ultrasound She is on Tirosint brand name , not generic because levothyroxine was not getting her TSH to target T1DM: Initially diagnosed with T1DM at the age of 2. She is currently using the Tandem T-Slim insulin pump and the [employer] G7 CGM. Pump/Sensor: Uses Tandem T-Slim insulin pump with Lispro. Does use Control IQ. Pump settings: Basal rate(s) (units/hour) : 12 AM?to 5 AM 1.64 units / hr 5 AM to 2 PM 1.68 units / hr 2 PM to 6 PM 1.77units / hr 6 PM to 12 AM 1.68 units / hr Bolus setting Insulin Carbohydrate Ratio (s) 12 AM?to 12 AM? 1:3 Correction Factor / Sensitivity Factor 12 AM?to 12 AM? 1:11 Active Insulin Time:? 5 hours Target(s): 12 AM? to 12 AM 100 mg/dL with control IQ off Target 110 mg/dL with control IQ on She is currently using a total daily dose of 120, with 35% basal and 65% bolus. She changes her site Q 2-3 days. Denies family history of autoimmunity. Random Glucose: 135 mg/dl HgA1C: 6.1% 10/31/24 Last Diabetic eye exam: 01/24/24 Last Podiatry Visit: 09/2024 She was in the past trying for , had to deal with fertility issues, at this point she is not interested and not actively trying. I did tell her statin is teratogenic, and she would need to tell us if she gets as soon as possible. Has eyes checked yearly, last eye exam in 12/2023 , she reports there is concern for retinopathy. She sees at [facility]. Denies Neuropathy. Does have stocking glove pattern distribution of paresthesias. , podiatry visit 10/23 No Nephropathy, off SATISH/ARB as she was trying to conceive. Normal urine microalbumin from labs done in October 2024 Has HLD, she has not been very adherent with her atorvastatin 40 mg daily. LDL elevated to 129 mg/dL. October 2024 Denies CAD Has had diabetes education. Diet/Carb counting: Is comfortable with carb counting. Physical exam General: sitting comfortably in no acute distress HEENT: normocephalic/atraumatic, Neck: supple, symmetrical Cardiac: normal heart sounds Pulm: normal breath sounds B/L, no added breath sounds Laboratory Tests 11/06/18 02/21/19 12/11/19 07:24 08:40 12:48 Free T4 1.24 1.06 0.77 TSH Thyroglobulin Thyroglobulin Antibody 08/13/20 08/20/20 08/24/20 09:10 11:10 08:25 Free T4 0.75 TSH 71.84 H 45.30 H Thyroglobulin <0.1 L <0.1 L Thyroglobulin Antibody <1 10/01/20 01/07/21 03/11/21 11:15 09:08 08:18 Free T4 1.64 1.53 TSH 16.71 H 3.81 0.74 Thyroglobulin <0.1 L <0.1 L <0.1 L Thyroglobulin Antibody <1 <1 <1 06/03/21 10/21/21 02/24/22 09:49 10:04 09:57 Free T4 1.67 1.25 1.08 TSH 0.27 L 0.19 L 5.90 H Thyroglobulin <0.1 L <0.1 L <0.1 L Thyroglobulin Antibody <1 <1 <1 04/28/22 12/15/22 04/26/23 10:21 10:57 09:28 Free T4 1.42 1.00 TSH 0.81 2.19 5.38 H Thyroglobulin <0.1 <0.1 Thyroglobulin Antibody <1 <1 08/23/23 11/26/23 02/22/24 07:36 09:27 10:57 Free T4 1.11 1.18 1.25 TSH 4.12 H 5.12 H 0.62 Thyroglobulin <0.1 Thyroglobulin Antibody <1 08/25/24 08:10 Free T4 1.44 TSH 0.12 L Thyroglobulin Thyroglobulin Antibody Laboratory Tests 02/26/24 08/25/24 10/31/24 08:53 08:10 08:41 Plt Count 382 Sodium 138 Potassium 4.4 Creatinine 0.73 Estimated GFR > 60 Fasting Glucose 154 H Estimat Average Glucose 128 Hgb A1c (Clinic) 6.4 H Hemoglobin A1c % 6.1 H Calcium 8.7 AST 20 ALT 16 Triglycerides 49 Cholesterol 193 LDL Cholesterol, Calc 129 H HDL Cholesterol 55 TSH 0.12 L 0.23 L Free T4 1.44 1.21 Thyroglobulin <0.1 L Urine Creatinine 65.28 Urine Microalbumin < 5.0 Thyroglobulin Antibody <1 US SOFT TISSUE NECK 06/07/23 CLINICAL INFORMATION: Personal history of malignant neoplasm of thyroid. COMPARISON: Ultrasound soft tissue head/neck 12/07/2021. Ultrasound soft tissue head/neck thyroid dated 04/15/2019. TECHNIQUE: Ultrasound of the neck soft tissues is performed with high- frequency alfaro-scale imaging and color Doppler. Limited visualization due to body habitus. FINDINGS: THYROID BED: Prior thyroidectomy. No residual thyroid tissue demonstrated in the thyroid bed. No cystic or solid nodules demonstrated in the thyroid bed. RIGHT NECK SOFT TISSUES: Right level 1B 0.8 x 0.5 x 0.8 cm node with echogenic hilum, previously 0.8 x 0.5 x 0.7 cm. Right level 1B 1.7 x 0.6 x 0.8 cm node with echogenic hilum was not identified on the prior exam. LEFT NECK SOFT TISSUES: Left level 5A 1.8 x 0.9 x 1.4 cm node was not identified on the prior study. This node appears atypical with diffuse internal echoes and cortical thickening. Left level 3 node measures 2.0 x 0.8 x 1.0 cm with echogenic hilum and borderline cortical thickening, not previously identified. US/US soft tiss head and/or neck IMPRESSION: 1. Bilateral cervical nodes as detailed above. Correlation with clinical exam recommended to determine further management. Recommend follow up ultrasound in 3 months. 2. If clinically indicated further evaluation of the neck soft tissues and nodes may be performed with CT soft tissue neck with intravenous contrast. US SOFT TISSUE NECK 12/07/2021 CLINICAL INFORMATION: Personal history of malignant neoplasm of thyroid. COMPARISON: Ultrasound-guided thyroid biopsy dated 08/06/2019. Ultrasound soft tissue head/neck thyroid dated 04/15/2019. TECHNIQUE: Ultrasound of the neck soft tissues is performed with high- frequency alfaro-scale imaging and color Doppler. FINDINGS: THYROID BED: Prior thyroidectomy. No residual thyroid tissue demonstrated in the thyroid bed. No cystic or solid nodules demonstrated in the thyroid bed. RIGHT NECK SOFT TISSUES: Scattered architecturally normal nodes are present. The nodes show normal fatty hilus, normal cortical thickness, and no cystic change or calcification. No abnormal color flow. The largest nodes are as follows: Level IB: 0.76 x 0.45 x 0.72 cm. Normal dianelys architecture. Level IA: 0.72 x 0.60 x 0.52 cm. Normal dianelys architecture. LEFT NECK SOFT TISSUES: Scattered architecturally normal nodes are present. The nodes show normal fatty hilus, normal cortical thickness, and no cystic change or calcification. No abnormal color flow. No lymph nodes seen on the left. US/US soft tiss head and/or neck IMPRESSION: 1. Benign right neck lymph nodes. No abnormal left neck lymph nodes seen. 2. If clinically indicated further evaluation of the neck soft tissues and nodes may be performed with CT soft tissue neck with intravenous contrast. 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 Hypocalcemia Postoperative hypothyroidism History of thyroid cancer Vitamin D deficiency HLD (hyperlipidemia) HTN (hypertension) Onychomycosis of multiple toenails with type 1 diabetes mellitus Surgical History S/P trigger finger release History of foot surgery Hx of thyroidectomy History of dental surgery Family History Father Myocardial infarction Pacemaker Mother Pulmonary embolism High cholesterol Social History Household Members: Spouse Housing: House Patient Tobacco Use Status: Never used Tobacco e-Cigarette/Vaping Use: Never Used Second Hand Smoke Exposure: No service: No Current occupational status: employed 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 Parth Dutta at [facility], which revealed PTC 1.5 cm with no extrathyroidal extension, no angioinvasion, no lymphatic invasion, uninvolved margins, 0/2 lymph nodes positive, AJCC stage I pT1b N0 a, HEIDI low risk of recurrence, status post completion thyroidectomy 03/23/2020, with pathology revealing 2 foci of PTC measuring 1.6 cm and 0.2 cm, with a 1.6 cm foci having ill-defined margins and capsular invasion, moving her up to HEIDI intermediate risk of recurrence. Status post I 131 remnant ablation with 29.1 mCi of I 131 08/24/2020, who is currently HEIDI excellent response to therapy. Ultrasound of the neck last done in October 2023 at [facility] did not show any abnormal lymph nodes. She has had an undetectable stimulated and non stimulated thyroglobulin level. Labs last done 08/25/2024, tumor markers undetectable. TSH from October 2024 was 0. Two 3, given excellent response to therapy goal TSH is 0.5-2. We will reduce the dose of Tirosint. She is on Tirosint because she could never reach goal TSH on levothyroxine, suggesting absorption issues. Plan: -decreased Tirosint to 200 mcg daily from 225 mcg daily -TSH and free T4 in 6 weeks -she was supposed to get ultrasound of the neck ordered last visit, however was sick and did not get this, I have asked her to reschedule -follow up in 10 weeks to discuss results (2) Postoperative hypothyroidism: Code(s): E89.0 - Postprocedural hypothyroidism Category: Medical Plan: TSH from October 2024 was 0. Two 3, given excellent response to therapy goal TSH is 0.5-2. We will reduce the dose of Tirosint. She is on Tirosint because she could never reach goal TSH on levothyroxine, suggesting absorption issues. Plan: -decreased Tirosint to 200 mcg daily from 225 mcg daily -TSH and free T4 in 6 weeks (3) Type 1 diabetes mellitus with retinopathy: Code(s): E10.319 - Type 1 diabetes mellitus with unspecified diabetic retinopathy without macular edema Category: Medical Qualifiers: Diabetic retinopathy severity: with unspecified retinopathy severity D iabetes mellitus macular edema: without macular edema Laterality: unspecified laterality Qualified Code(s): E10.319 - Type 1 diabetes mellitus with unspecified diabetic retinopathy without macular edema Plan: 34-year-old female with a history of type 1 diabetes mellitus diagnosed at the age of 2, who is on tandem T slim insulin pump with Dexcom G7, gets insulin lispro through the pump. The pump and CGM data reviewed, her A1c is excellent at 6.1%, she does have some hyperglycemic episodes followed by hypoglycdemia, per patient she has a lot of issues with the insulin pump sites. These were examined today, she seems to be rotating them well, however due to excess fat deposition in the abdominal area, she has a issues with her infusion set blowing up a lot. She has worked with different stylets including the steel cut, however at this point she knows how to adjust and change her sets. Her pump settings are close to where they should be based on her total daily dose,. No pump setting changes made today. I think sometimes she does override the bolus and give herself extra insulin when she is running high than later resulting in hypoglycemia. We did some education about letting the control IQ do its job. She is using a lot of insulin her total daily dose is 120 units and her basal rates are quite high. She would benefit from a GLP 1 agonist to help with lowering insulin resistance. Plan: -no pump settings changed today -Start Wegovy 0.25 mg weekly -up-to-date on eye exam, has a history of retinopathy -follows regularly with delivery rn, up to date, has mild neuropathy symptoms -normal kidney function and urine microalbumin from October 2024, she has not on any Satish inhibitors anymore -follow up in 10 weeks (4) Insulin pump in place: Code(s): Z96.41 - Presence of insulin pump (external) (internal) Category: Medical Plan: Has tandem T slim insulin pump with Dexcom G7 CGM, on insulin lispro through the pump Prescribed backup Lantus: To inject 40 units in case of pump failure She said she buys pen needles [id number] as they are cheaper Prescribed urine ketone strips, did education that if she ever has blood sugars greater than 250 mg/dL, should check ketones. Briefly discussed ketone action plan. Discussed hypoglycemia education. (5) Obesity: Code(s): E66.9 - Obesity, unspecified Category: Medical Qualifiers: Obesity type: due to excess calories Obesity classification: u nspecified obesity classification Serious obesity comorbidity presence: with serious comorbidity Qualified Code(s): E66.09 - Other obesity due to excess calories Plan: Current BMI 65.2 kg per m2 Current weight 356 lb at some point she was on Wegovy 0.25 mg weekly, unclear why this was stopped, per patient she stopped getting refills This will help her with her morbid obesity with serious comorbidities of hyperlipidemia, type 1 diabetes mellitus and reduce the dose of her insulin. She is requiring high amounts of insulin. Plan: -start Wegovy 0.25 mg weekly injection (6) HLD (hyperlipidemia): Code(s): E78.5 - Hyperlipidemia, unspecified Category: Medical Qualifiers: Hyperlipidemia type: unspecified Qualified Code(s): E78.5 - Hyperlipidemia, unspecified Plan: LDL elevated to 129, she has not been adherent to her atorvastatin. Plan: -reiterated importance of taking medication regularly atorvastatin 40 mg daily -we will plan to repeat a lipid panel in 6 months or so sometime in winter 2024 Plan I spent 45 minutes in reviewing the record, seeing the patient and documenting in the medical record. Orders: Orders 2 AMB Glucose Monitoring Today E10.319 - Type 1 diabetes mellitus with unspecified diabetic retinopathy without macular edema Thyroid Stimulating Hormone 6 Weeks E89.0 - Postprocedural hypothyroidism, Z85.850 - Personal history of malignant neoplasm of thyroid Free T4 (Free Thyroxine) 6 Weeks E89.0 - Postprocedural hypothyroidism, Z85.850 - Personal history of malignant neoplasm of thyroid Medications: New 2 insulin glargine (Lantus Solostar U-100 Insulin) Inject 40 units in case of pump failure 40 units (0.4 mL) subcut DAILY 3 mL 3RF semaglutide (weight loss) (Wegovy) 0.25 mg (0.5 mL) subcut QWEEK 2 mL 2RF acetone (urine) test (Ketone Urine Test strips) As directed to use in case of emergency 100 ea 3RF glucagon 3 mg/actuation to use in case of emergency 3 mg intranasal ONCE 1 ea 1RF E10.319 - Type 1 diabetes mellitus with unspecified diabetic retinopathy without macular edema Discontinued 2 Tirosint (levothyroxine) Take 25 mcg pill daily with 200 mcg pill Tirosint brand name only ROXY No substitution allowed Discontinued Reason: Doctor's Order 25 mcg PO DAILY 30 caps 5RF NS Patient Instructions: Do ultrasound of the neck , please schedule it to be done prior to next visit Start wegovy 0.25 mg weekly Prescribed back up lantus : to inject 40 units in case of pump failure Reduce levothyroxine to 200 mcg daily Do blood work in 6 weeks Coding Level of Care Code Est Pt Level 5 (59931) Diagnoses History of thyroid cancer Z85.850 Postoperative hypothyroidism E89.0 Type 1 diabetes mellitus with retinopathy without macular edema, unspecified laterality, unspecified retinopathy severity E10.319 Diabetic retinopathy severity: with unspecified retinopathy severity Diabetes mellitus macular edema: without macular edema Laterality: unspecified laterality Insulin pump in place Z96.41 Obesity due to excess calories with serious comorbidity, unspecified classification E66.09 Obesity type: due to excess calories Obesity classification: unspecified obesity classification Serious obesity comorbidity presence: with serious comorbidity Hyperlipidemia, unspecified hyperlipidemia type E78.5 Hyperlipidemia type: unspecified CPT Codes Details - CPT: 02688 - Glucose monitoring, continuous-physician I&R ([id number]) Time Spent (min) 45
[2024-11-06 08:19] VITALS: BP 132/72; PULSE 84; O2SAT 97; BMI 65.2
--- OUTSIDE RECORDS SUMMARY | 2024-11-06 08:19 | XMS_ITS ---
Author Organization [facility] Address [address] [place] [address] Care Team Providers Care Placement Coordinator Name Role Phone Archana ABDI, Alisson Ugarte Primary Care Provider Un available Minda Miranda [phone] REASON FOR VISIT ASSIGNMENT MANAGER PPWK Entered Encounters Encounter Location Date Provider Diagnosis [facility] [address] [place] [address] 10/02/2024 Minda Miranda Plan Of Treatment Next Appt Details Provider Name:Minda miller, 01/04/2025 09:15:00 AM, [address] [facility], [place], [address], Progress Notes * Carly BROOKSDOB: 1990 (34 yo F)Acc No.[id number]:10/02/2024 Patient:?Carly BROOKS :1990???Age:34 Y???Sex:Female Address:[address] [place], [address] * true * Date:? Generated for Printi ng/Fatracieg/eTransmitting on:?11/06/2024 08:19 AM EDT
--- OUTSIDE RECORDS SUMMARY | 2024-11-06 08:19 | XMS_ITS ---
Author Organization [facility] Address [address] [place] [address] Care Team Providers Care Applications Scientist Name Role Phone Archana ABDI, Alisson Ugarte Primary Care Provider Un available Minda Miranda [phone] REASON FOR VISIT Labs Medications Medication SIG (Take, Route, Fr equency, Duration) Notes Start Date End Date Status Terbinafine HCl 250 MG 1 tablet Orally O nce a day for 45 days 11/02/2024 Active Encounters Encounter Location Date Provider Diagnosis [facility] [address] [place] [address] 11/02/2024 Minda Miranda Plan Of Treatment Medication Medication Name Sig Start Date Stop Date Notes Terbinafine HCl 250 MG 1 tablet Orally O nce a day for 45 days 11/02/2024 Next Appt Details Provider Name:Minda miller, 01/04/2025 09:15:00 AM, [address] [place] [address], [id number], Progress Notes * Carly BROOKSDOB: 1990 (34 yo F)Acc No.[id number]:11/02/2024 Patient:?Alexandra BROOKSaddi lee :1990???Age:34 Y???Sex:Female [address], [address] * Refills? Start Terbinafine HCl Tablet, 250 MG, Orally, 45 Tablet, 1 tablet, Once a day, 45 days, Refills=1 * true * Date:? Generated for Jona rees/Jaciel/Cosme on:?11/06/2024 08:19 AM EDT
--- OUTSIDE RECORDS SUMMARY | 2024-11-06 08:19 | XMS_ITS | Clinical Summary ---
Author Organization [facility] Facility Address [address] [place] [address] Care Team Providers Care President And Chief Executive Officer Name Role Phone Cosmo Magaña MD Primary Care Provider [phone] Medications calcium carbonate (OS-MALIKA) 1250 (500 Ca) [...] 05/02/2022 Influenza Vaccine (Season Ended) 2025 Insurance [facility] Care Teams President And Chief Executive Officer Relationship Specialty Start Date End Date Cosmo Magaña MD [address] [place] [address] PCP - General Internal Medicine 05/01/22
--- OUTSIDE RECORDS SUMMARY | 2024-11-06 08:19 | XMS_ITS | Patient Health Record ---
Author Organization [facility] Address [address] [facility] [place] [address] Care Team Providers Care [employer] Name Role Phone Archana ABDI, Alisson Ugarte Primary Care Provider Un available Angelangela Minda Unavailable [phone] Allergies Allergen (clinical drug ingredient) Drug/Non Drug Allergy documented on EMR Reaction Allergy Type Onset Date Status bees (uncoded) swelling Allergy Activ e Results Component Value Reference Range Notes HEMOGLOBIN A1C (GLYCOHEMOGLO BIN) Reviewed date:10/26/2024 08:43:36 AM Interpretation: Performing Lab: Notes/Report: HEMOGLOBIN A1C % (HH) 6.0 Reason For Referral No Information Medications Medication SIG (Take, Route, Fr equency, Duration) Notes Start Date End Date Status Synthroid Unknown NovoLOG Unknown Ketoconazole 2 % 1 application Apply a thin layer to externally to feet, even between toes Twice a day for 30 days Active Tirosint Active Atorvastatin Calcium Active HumaLOG Active Terbinafine HCl 250 MG 1 tablet Orally O nce a day for 45 days 11/02/2024 Active Immunizations Vaccine Route Administration Date Status [...] monthly (1 point) Points 2 Interpretation Negative Problems Problem Type SNOMED Code ICD Code Onset Dates Problem Status W/U Status Risk Notes Problem Tinea unguium (663181593) Tinea unguium (B35.1) Active confirmed Problem Type I diabetes mellitus without complication (007035494) Type 1 diabetes mellitus without complications (E10.9) Active confirmed Vital Signs Blood pressure diastolic 88 mm Hg 10/26/2024 Height 5ft 5in in 10/26/2024 Blood pressure systolic 140 mm Hg 10/26/2024 Weight 325 lbs 10/26/2024 BMI 54.08 kg/m2 10/26/2024 Encounters Encounter Location Date Provider Diagnosis [address] [facility] [place] [address] 10/26/2024 Minda Miranda Onychomycosis B35.1 ; Tinea pedis of both feet B35.3 ; Type 1 diabetes mellitus without complications E10.9 and Lower extremity edema R60.[address] [facility] [address] 10/02/2024 Minda Miranda [facility] [address] 11/02/2024 Minda Miranda Assessments Encounter Date Diagnosis (ICD Code) Assessment Notes Treatment Notes Treatment Clinical Notes Section Notes 10/26/2024 Onychomycosis (ICD-10 - B35.1) 10/26/2024 Tinea pedis of both feet (ICD-10 - B35.3) 10/26/2024 Type 1 diabetes mellitus without complications (ICD-10 - E10.9) 10/26/2024 Lower extremity edema (ICD-10 - R60.0) Plan Of Treatment Pending Test Test Name Order Date *Liver Function Test (LFT) 10/26/2024 Next Appt Details Provider Name:Minda miller, 01/04/2025 09:15:00 AM, [address], [place], [address], Insurance Providers Payer Name Payer Address Payer Phone Subscriber Number Group Number Insured Name Patient Relationship to Insured Coverage Start Date Coverage End Date [facility] [address] [place] [id number] Rosemary Brooks Self - patient is the insured Medical (General) History Medical History History ICD Code Cholesterol Diabetic Chicken pox Thyroid disorder Cancer Surgical History Surgery Date(Month/Year) dental surgery 07/2006 thyroidectomy, partial 03/2020,10/2019 trigger release 01/2023
--- OUTSIDE RECORDS SUMMARY | 2024-11-06 08:20 | XMS_ITS ---
[facility] Organization [facility] Address [address] [facility] [place] [address] Care Team Providers Care Oracle Developer Name Role Phone Archana ABDI, Alisson Ugarte Primary Care Provider Un available AngelMinda miller Unavailable [phone] Allergies Allergen (clinical drug ingredient) Drug/Non Drug [...] 025 Encounters Encounter Location Date Provider Diagnosis [facility] [address] [address] 10/26/2024 Minda Miranda Onychomycosis B35.1 ; Tinea [...] Reason: Provider Name:Minda miller, 01/04/2025 09:15:00 AM, [address] [place] [address], [place], [address], Progress Notes * Carly BROOKSDOB: 1990 (34 yo F)Acc No.[id number]:10/26/2024 Progress Notes Patient:?Carly BROOKS Provider:?Minda Miranda DPM :1990???Age:34 Y???Sex:Female D ate:10/26/2024 [facility] [id number] Pcp:Anish Gordon Subjective: * Chief Complaints: * [...] room dancing, gym. ?Marital status: . 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 ???Drug/Alcohol:?AUDIT-C (Standard)?Did you have a drink containing [...] Miranda DPM Date:? Generated for Jona rees/Jaciel/Yohanitting on:?11/06/2024 08:19 AM EDT History and Physical Notes * [...]
[2024-11-06 08:32] LABS: Glucose, Whole Blood 135 mg/dL (60-115)
== END 2024-11-06 08:59 | disposition home or self-care (01) ==
LOC: HO.ENCR 08:15
PROVIDERS: PCP Internal Medicine; Visit Provider Student in an Organized Health Care Education/Training Program
DX: E10.319 Type 1 diabetes mellitus with unspecified diabetic retinopathy without macular edema (principal); Z96.41 Presence of insulin pump (external) (internal); Z85.850 Personal history of malignant neoplasm of thyroid; E89.0 Postprocedural hypothyroidism; E66.09 Other obesity due to excess calories; E78.5 Hyperlipidemia, unspecified
CPT/HCPCS: 95251; 99215

== ENCOUNTER → 2024-11-06 08:14 | Outpatient (BNVA) | payer OTHER, SELFPAY | PROVIDERS: PCP Internal Medicine; Visit Provider Student in an Organized Health Care Education/Training Program | DX: E89.0 Postprocedural hypothyroidism (principal); E10.319 Type 1 diabetes mellitus with unspecified diabetic retinopathy without macular edema; E66.09 Other obesity due to excess calories; E78.5 Hyperlipidemia, unspecified; Z85.850 Personal history of malignant neoplasm of thyroid; Z96.41 Presence of insulin pump (external) (internal); Z79.899 Other long term (current) drug therapy | CPT/HCPCS: 82947 ==

== ENCOUNTER 2024-12-25 09:19 | Outpatient (REF) | payer OTHER, SELFPAY ==
--- OUTSIDE RECORDS SUMMARY | 2024-12-25 09:45 | XMS_ITS | Patient Health Record ---
Author Organization [facility] Address [address] [facility] [place] [address] Care Team Providers Care Revenue Collector Name Role Phone Archana ABDI, Alisson Ugarte Primary Care Provider Un available Angelangela Minda Unavailable [phone] Allergies Allergen (clinical drug ingredient) Drug/Non Drug [...] to feet, even between toes Twice a day; Duration: 30 days Active Tirosint Active Atorvastatin Calcium Active HumaLOG Active Terbinafine HCl 250 MG 1 tablet Orally O nce a day; Duration: 45 days 11/02/2024 Active Immunizations Vaccine Route [...] W/U Status Risk Notes Problem Tinea unguium (B35.1) Active confirmed Problem Type I diabetes mellitus without complication (978113171) Type 1 diabetes mellitus without complications (E10.9) Active confirmed Vital Signs Blood pressure diastolic 88 mm Hg 10/26/2024 Height 5ft 5in in 10/26/2024 Blood pressure systolic 140 mm Hg 10/26/2024 Weight 325 lbs 10/26/2024 BMI 54.08 kg/m2 10/26/2024 Encounters Encounter Location Date Provider Diagnosis [place] [address] [place] [address] 10/26/2024 Minda Miranda Onychomycosis B35.1 ; Tinea pedis of both feet B35.3 ; Type 1 diabetes mellitus without complications E10.9 and Lower extremity edema R60.[address] [facility] [address] 10/02/2024 [facility] [address] 11/02/2024 Minda Miranda Assessments Encounter Date Diagnosis [...] miller, 01/04/2025 09:15:00 AM, [address], [place], [address], Insurance Providers Payer Name Payer Address Payer Phone Subscriber Number Group Number Insured Name Patient Relationship to Insured Coverage Start Date Coverage End Date [facility] [address] [place] [id number] Rosemary Brooks Self - patient is the insured Medical (General) History Medical History History ICD Code Cholesterol Diabetic Chicken pox Thyroid disorder Cancer Surgical History Surgery Date(Month/Year) dental surgery 07/2006 thyroidectomy, partial 03/2020,10/2019 trigger release 01/2023
[2024-12-25 11:26] LABS: Free T4 (Free Thyroxine) 1.34 ng/dL (0.71-1.85); Thyroid Stimulating Hormone 1.76 uIU/mL (0.32-4.0)
== END 2024-12-25 09:20 | disposition home or self-care (01) ==
LOC: HO.HMGCLDS 09:19
PROVIDERS: PCP Internal Medicine; Visit Provider Student in an Organized Health Care Education/Training Program
DX: E89.0 Postprocedural hypothyroidism (principal); Z85.850 Personal history of malignant neoplasm of thyroid
CPT/HCPCS: 36415; 84439; 84443

== ENCOUNTER 2025-01-15 07:59 | Outpatient (AMB) | payer OTHER, SELFPAY ==
--- NOTE | 2025-01-15 08:02 | A.OFFVIS_ITS ---
Vital Signs 3 01/15/25 08:06 Height 5 ft 2 in Weight 353 lb 2.888 oz BMI 64.6 BP 112/76 Blood Pressure Location Lt brachial Position Sitting Pulse 85 Pulse Source Pulse Oximeter Pulse Oximetry (%) 98 Oxygen Delivery Method Room Air Intake Visit Reasons: T1DM/Thyroid cancer Intake Note: Patient present today for Type 1 Diabetes Mellitus and Thyroid cancer office visit. 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 Accompanied by: Self / Same As Patient Allergies No Known Allergies Allergy (Verified 01/15/25 08:09) Medication List - Last Reconciled 01/15/25 by Andreia Davis MD acetone (urine) test (Ketone Urine Test strips) As directed to use in case of emergency atorvastatin 40 mg PO DAILY blood-glucose sensor (Dexcom G7 Sensor device) As directed cholecalciferol (vitamin D3) 125 mcg PO DAILY glucagon 3 mg/actuation 3 mg intranasal ONCE insulin lispro (Humalog U-100 Insulin) 150 units (1.5 mL) subcut DAILY Lantus U-100 Insulin (insulin glargine) 40 units (0.4 mL) subcut DAILY NS Tirosint (levothyroxine) 200 mcg PO DAILY NS tirzepatide (weight loss) (Zepbound) 2.5 mg (0.5 mL) subcut QWEEK vitamin B complex 1 cap PO DAILY HPI Comments Details: 34-year-old female coming in today for follow up of papillary thyroid cancer status post right hemithyroidectomy [place] [address] Parth Dutta at [facility], which revealed PTC 1.5 cm with no extrathyroidal extension, no angioinvasion, no lymphatic invasion, uninvolved margins, 0/2 lymph nodes positive, AJCC stage I pT1b N0 a, HEIDI low risk of recurrence, status post completion thyroidectomy 03/23/2020, with pathology revealing 2 foci of PTC measuring 1.6 cm and 0.2 cm, with a 1.6 cm foci having ill-defined margins and capsular invasion, moving her up to HEIDI intermediate risk of recurrence. Status post I 131 remnant ablation with 29.1 mCi of I 131 08/24/2020, who is currently HEIDI excellent response to therapy. She is also here for follow up of type 1 diabetes mellitus. History of PTC in detail 2019: Noted to have goiter on exam and underwent thyroid ultrasound which revealed multinodular thyroid 08/06/2019: FNA biopsy: Of a right midpole nodule measuring 1 cm with peripheral calcification came back as Moffat category 5, suspicious for PTC. 2020: Right hemithyroidectomy with Dr. Parth Dutta at [facility] which revealed PTC 1.5 cm with no extrathyroidal extension, no angioinvasion, no lymphatic invasion, uninvolved margins, 0/2 lymph nodes positive, AJCC stage I pT1b N0 a, HEIDI low risk of recurrence 03/23/2020, status post completion thyroidectomy with pathology revealing 2 foci of PTC measuring 1.6 cm and 0.2 cm, with a 1.6 cm foci having ill-defined margins and capsular invasion, moving her up to HEIDI intermediate risk of recurrence. 08/24/2020: Status post I 131 remnant ablation with 29.1 mCi of I 131 08/20/2020: TSH 45.3, TG less than 0.1, TG antibody negative Whole-body scan subsequent to treatment showed faint uptake it within the neck, a lack of physiologic activity throughout the body which was concerning for her a high iodine load prior to treatment. 10/01/2020: TSH 16.71, TG less than 0.1, TG antibody undetectable. Dose of levothyroxine was increased to 200 mcg p.o. daily. 01/07/2021: TSH 3.81, TG less than 0.1, TG antibody less than 1. Change to Tirosint 200 mcg p.o. daily due to suspected absorption issues with levothyroxine. 12/07/2021: Ultrasound neck showed normal lymph nodes 06/07/2023: Ultrasound neck showed left level 5A, 1.8 X 0.9 X 1.4 cm node with cortical thickening and a left level 3, 2 X 0.8 X 1 cm lymph node with borderline cortical thickening. Patient was just recovering from agyn-obit-owuwz disease. 10/2023: Saw Dr. Ugarte at [facility], ultrasound neck showed normal- appearing lymph nodes. Reports some fullness /pressure in neck but feels there is a lot of fat tissue deposition due to weight gain No changes to voice Denies any symptoms of hyper or hypothyroidism. 08/25/2024: TSH 0.12, free T4 1.44. TG less than 0.1, TG less than 1 08/27/2024: Tirosint reduced from 250 mcg daily to 225 mcg daily 11/22/2024: TSH 0.23, free T4 1.21 Interval history 11/06/2024: Tirosint reduced to 200 mcg daily. Did not do neck ultrasound, forgot to schedule again 12/25/2024: TSH 1.76, free T4 1.34 She is on Tirosint brand name , not generic because levothyroxine was not getting her TSH to target T1DM: Initially diagnosed with T1DM at the age of 2. She is currently using the Tandem T-Slim insulin pump and the [employer] G7 CGM. Pump/Sensor: Uses Tandem T-Slim insulin pump with Lispro. Does use Control IQ. Pump settings: Basal rate(s) (units/hour) : 12 AM?to 5 AM 1.64 units / hr 5 AM to 2 PM 1.68 units / hr 2 PM to 6 PM 1.77units / hr 6 PM to 12 AM 1.68 units / hr Bolus setting Insulin Carbohydrate Ratio (s) 12 AM?to 12 AM? 1:3 Correction Factor / Sensitivity Factor 12 AM?to 12 AM? 1:11 Active Insulin Time:? 3 hours Target(s): 12 AM? to 12 AM 100 mg/dL with control IQ off Target 110 mg/dL with control IQ on Tandem T slim pump with Dexcom G7 downloaded from January 02 to January 15 Average glucose 135 mg/dL Time in range 90% Hi 8.7% Very high 0.4% Low 1.1% Very low 0.1% Time CGM and use 100% Standard deviation 34 mg/dL Coefficient of variation 25% G ME 6.5% Interpretation: She has had improved control, she is still does have some hyperglycemia mostly in the setting of an consistently entering carbs. There is also variation in the days right after she gets Zepbound where she is more sensitive to the insulin. Tandem T slim pump information Control iq 74% Total total insulin dose 121.92 units per day Basal 35%, 43.19 units Bolus 65%: 78.74 units Average carbs 113 g Cautery change every 2 days Denies family history of autoimmunity. Random Glucose: 126 mg/dl HgA1C: 6.1% 10/31/24 Last Diabetic eye exam: 07/25 Last Podiatry Visit: 12/2024 [facility] She was in the past trying for , had to deal with fertility issues, at this point she is not interested and not actively trying. I did tell her statin is teratogenic, and she would need to tell us if she gets as soon as possible. Has eyes checked yearly, last eye exam in 07/25 , she reports there is concern for retinopathy. She sees at [facility], [place]. Denies Neuropathy. Does have stocking glove pattern distribution of paresthesias. , podiatry visit 01/22 No Nephropathy, off SATISH/ARB as she was trying to conceive. Normal urine microalbumin from labs done in October 2024 Has HLD, she has not been very adherent with her atorvastatin 40 mg daily. LDL elevated to 129 mg/dL. October 2024 Denies CAD Has had diabetes education. Diet/Carb counting: Is comfortable with carb counting. Physical exam General: sitting comfortably in no acute distress HEENT: normocephalic/atraumatic, Neck: supple, symmetrical Cardiac: normal heart sounds Pulm: normal breath sounds B/L, no added breath sounds Laboratory Tests 11/06/18 02/21/19 12/11/19 07:24 08:40 12:48 Free T4 1.24 1.06 0.77 TSH Thyroglobulin Thyroglobulin Antibody 08/13/20 08/20/20 08/24/20 09:10 11:10 08:25 Free T4 0.75 TSH 71.84 H 45.30 H Thyroglobulin <0.1 L <0.1 L Thyroglobulin Antibody <1 10/01/20 01/07/21 03/11/21 11:15 09:08 08:18 Free T4 1.64 1.53 TSH 16.71 H 3.81 0.74 Thyroglobulin <0.1 L <0.1 L <0.1 L Thyroglobulin Antibody <1 <1 <1 06/03/21 10/21/21 02/24/22 09:49 10:04 09:57 Free T4 1.67 1.25 1.08 TSH 0.27 L 0.19 L 5.90 H Thyroglobulin <0.1 L <0.1 L <0.1 L Thyroglobulin Antibody <1 <1 <1 04/28/22 12/15/22 04/26/23 10:21 10:57 09:28 Free T4 1.42 1.00 TSH 0.81 2.19 5.38 H Thyroglobulin <0.1 <0.1 Thyroglobulin Antibody <1 <1 08/23/23 11/26/23 02/22/24 07:36 09:27 10:57 Free T4 1.11 1.18 1.25 TSH 4.12 H 5.12 H 0.62 Thyroglobulin <0.1 Thyroglobulin Antibody <1 08/25/24 08:10 Free T4 1.44 TSH 0.12 L Thyroglobulin Thyroglobulin Antibody Laboratory Tests 02/26/24 08/25/24 10/31/24 08:53 08:10 08:41 Plt Count 382 Sodium 138 Potassium 4.4 Creatinine 0.73 Estimated GFR > 60 Fasting Glucose 154 H Estimat Average Glucose 128 Hgb A1c (Clinic) 6.4 H Hemoglobin A1c % 6.1 H Calcium 8.7 AST 20 ALT 16 Triglycerides 49 Cholesterol 193 LDL Cholesterol, Calc 129 H HDL Cholesterol 55 TSH 0.12 L 0.23 L Free T4 1.44 1.21 Thyroglobulin <0.1 L Urine Creatinine 65.28 Urine Microalbumin < 5.0 Thyroglobulin Antibody <1 Laboratory Tests 10/31/24 11/06/24 12/25/24 08:41 08:29 09:26 Plt Count 382 Sodium 138 Creatinine 0.73 Estimated GFR > 60 Glucose (Clinic) 135 H Hemoglobin A1c % 6.1 H TSH 1.76 Free T4 1.34 Urine Creatinine 65.28 Urine Microalbumin < 5.0 US SOFT TISSUE NECK 06/07/23 CLINICAL INFORMATION: Personal history of malignant neoplasm of thyroid. COMPARISON: Ultrasound soft tissue head/neck 12/07/2021. Ultrasound soft tissue head/neck thyroid dated 04/15/2019. TECHNIQUE: Ultrasound of the neck soft tissues is performed with high- frequency alfaro-scale imaging and color Doppler. Limited visualization due to body habitus. FINDINGS: THYROID BED: Prior thyroidectomy. No residual thyroid tissue demonstrated in the thyroid bed. No cystic or solid nodules demonstrated in the thyroid bed. RIGHT NECK SOFT TISSUES: Right level 1B 0.8 x 0.5 x 0.8 cm node with echogenic hilum, previously 0.8 x 0.5 x 0.7 cm. Right level 1B 1.7 x 0.6 x 0.8 cm node with echogenic hilum was not identified on the prior exam. LEFT NECK SOFT TISSUES: Left level 5A 1.8 x 0.9 x 1.4 cm node was not identified on the prior study. This node appears atypical with diffuse internal echoes and cortical thickening. Left level 3 node measures 2.0 x 0.8 x 1.0 cm with echogenic hilum and borderline cortical thickening, not previously identified. US/US soft tiss head and/or neck IMPRESSION: 1. Bilateral cervical nodes as detailed above. Correlation with clinical exam recommended to determine further management. Recommend follow up ultrasound in 3 months. 2. If clinically indicated further evaluation of the neck soft tissues and nodes may be performed with CT soft tissue neck with intravenous contrast. US SOFT TISSUE NECK 12/07/2021 CLINICAL INFORMATION: Personal history of malignant neoplasm of thyroid. COMPARISON: Ultrasound-guided thyroid biopsy dated 08/06/2019. Ultrasound soft tissue head/neck thyroid dated 04/15/2019. TECHNIQUE: Ultrasound of the neck soft tissues is performed with high- frequency alfaro-scale imaging and color Doppler. FINDINGS: THYROID BED: Prior thyroidectomy. No residual thyroid tissue demonstrated in the thyroid bed. No cystic or solid nodules demonstrated in the thyroid bed. RIGHT NECK SOFT TISSUES: Scattered architecturally normal nodes are present. The nodes show normal fatty hilus, normal cortical thickness, and no cystic change or calcification. No abnormal color flow. The largest nodes are as follows: Level IB: 0.76 x 0.45 x 0.72 cm. Normal dianelys architecture. Level IA: 0.72 x 0.60 x 0.52 cm. Normal dianelys architecture. LEFT NECK SOFT TISSUES: Scattered architecturally normal nodes are present. The nodes show normal fatty hilus, normal cortical thickness, and no cystic change or calcification. No abnormal color flow. No lymph nodes seen on the left. US/US soft tiss head and/or neck IMPRESSION: 1. Benign right neck lymph nodes. No abnormal left neck lymph nodes seen. 2. If clinically indicated further evaluation of the neck soft tissues and nodes may be performed with CT soft tissue neck with intravenous contrast. 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 Hypocalcemia Postoperative hypothyroidism History of thyroid cancer Vitamin D deficiency HLD (hyperlipidemia) HTN (hypertension) Onychomycosis of multiple toenails with type 1 diabetes mellitus Surgical History S/P trigger finger release History of foot surgery Hx of thyroidectomy History of dental surgery Family History Father Myocardial infarction Pacemaker Mother Pulmonary embolism High cholesterol Social History Household Members: Spouse Housing: House Patient Tobacco Use Status: Never used Tobacco e-Cigarette/Vaping Use: Never Used Second Hand Smoke Exposure: No service: No Current occupational status: employed 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 Parth Dutta at [facility], which revealed PTC 1.5 cm with no extrathyroidal extension, no angioinvasion, no lymphatic invasion, uninvolved margins, 0/2 lymph nodes positive, AJCC stage I pT1b N0 a, HEIDI low risk of recurrence, status post completion thyroidectomy 03/23/2020, with pathology revealing 2 foci of PTC measuring 1.6 cm and 0.2 cm, with a 1.6 cm foci having ill-defined margins and capsular invasion, moving her up to HEIDI intermediate risk of recurrence. Status post I 131 remnant ablation with 29.1 mCi of I 131 08/24/2020, who is currently HEIDI excellent response to therapy. Ultrasound of the neck last done in October 2023 at [facility] did not show any abnormal lymph nodes. She has had an undetectable stimulated and non stimulated thyroglobulin level. Labs last done 08/25/2024, tumor markers undetectable. Most recent TSH from November 2024 within goal at 1.73., given excellent response to therapy goal TSH is 0.5-2. She is on Tirosint because she could never reach goal TSH on levothyroxine, suggesting absorption issues. Plan: -continue Tirosint 200 mcg daily -we will plan to repeat next set of tumor markers in August 2025 -she was supposed to get ultrasound of the neck ordered last visit, however was sick and did not get this, I have asked her to reschedule -follow up in 8 weeks to discuss results (2) Postoperative hypothyroidism: Code(s): E89.0 - Postprocedural hypothyroidism Category: Medical Plan: Most recent TSH from November 2024 within goal at 1.73., given excellent response to therapy goal TSH is 0.5-2. She is on Tirosint because she could never reach goal TSH on levothyroxine, suggesting absorption issues. Plan: -continue Tirosint 200 mcg daily (3) Type 1 diabetes mellitus with retinopathy: Code(s): E10.319 - Type 1 diabetes mellitus with unspecified diabetic retinopathy without macular edema Category: Medical Qualifiers: Diabetic retinopathy severity: with unspecified retinopathy severity D iabetes mellitus macular edema: without macular edema Laterality: unspecified laterality Qualified Code(s): E10.319 - Type 1 diabetes mellitus with unspecified diabetic retinopathy without macular edema Plan: 34-year-old female with a history of type 1 diabetes mellitus diagnosed at the age of 2, who is on tandem T slim insulin pump with Dexcom G7, gets insulin lispro through the pump. The pump and CGM data reviewed, her A1c is excellent at 6.1% from October 2024, she does have some hyperglycemic episodes followed by hypoglycdemia, per patient she has a lot of issues with the insulin pump sites. These were examined today, she seems to be rotating them well, however due to excess fat deposition in the abdominal area, she has a issues with her infusion set blowing up a lot. She has worked with different stylets including the steel cut, however at this point she knows how to adjust and change her sets. Her pump settings are close to where they should be based on her total daily dose,. No pump setting changes made today. I think sometimes she does override the bolus and give herself extra insulin when she is running high than later resulting in hypoglycemia. We did some education about letting the control IQ do its job. She is using a lot of insulin her total daily dose is 120 units and her basal rates are quite high. As we go up on the dose of GLP 1 agonist to help with lowering insulin resistance hopefully her insulin requirements we will come down.. She is having a lot of constipation on the current dose of Zepbound, I will plan to increase her after a few more injections. 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, up to date, has mild neuropathy symptoms -normal kidney function and urine microalbumin from October 2024, she has not on any Satish inhibitors anymore -follow up in 8 weeks (4) Insulin pump in place: Code(s): Z96.41 - Presence of insulin pump (external) (internal) Category: Medical Plan: Has tandem T slim insulin pump with Dexcom G7 CGM, on insulin lispro through the pump Prescribed backup Lantus: To inject 40 units in case of pump failure She said she buys pen needles [id number] as they are cheaper Prescribed urine ketone strips, did education that if she ever has blood sugars greater than 250 mg/dL, should check ketones. Briefly discussed ketone action plan. Discussed hypoglycemia education. (5) Obesity: Code(s): E66.9 - Obesity, unspecified Category: Medical Qualifiers: Obesity type: due to excess calories Obesity classification: u nspecified obesity classification Serious obesity comorbidity presence: with serious comorbidity Qualified Code(s): E66.09 - Other obesity due to excess calories Plan: Current BMI 65.2 kg per m2 Current weight 356 lb On Zepbound 2.5 mg weekly This will help her with her morbid obesity with serious comorbidities of hyperlipidemia, type 1 diabetes mellitus and reduce the dose of her insulin. She is requiring high amounts of insulin. Plan: -continue Zepbound 2.5 mg weekly injection, we will plan to uptitrated next visit (6) HLD (hyperlipidemia): Code(s): E78.5 - Hyperlipidemia, unspecified Category: Medical Qualifiers: Hyperlipidemia type: unspecified Qualified Code(s): E78.5 - Hyperlipidemia, unspecified Plan: LDL elevated to 129, she now has better adherence with the atorvastatin. Plan: -reiterated importance of taking medication regularly atorvastatin 40 mg daily -we will plan to repeat a lipid panel in 6 months or so sometime in winter 2024 Plan I spent 30 minutes in reviewing the record, seeing the patient and documenting in the medical record. Orders: Orders 2 AMB Glucose Monitoring Today E10.319 - Type 1 diabetes mellitus with unspecified diabetic retinopathy without macular edema, Z96.41 - Presence of insulin pump (external) (internal) Medications: Refilled 2 tirzepatide (weight loss) (Zepbound) for 4 weeks 2.5 mg (0.5 mL) subcut QWEEK 2 mL 2RF insulin lispro (Humalog U-100 Insulin) 150 units (1.5 mL) subcut DAILY 140 mL 7RF E10.69 - Type 1 diabetes mellitus with other specified complication atorvastatin 40 mg PO DAILY 90 tabs 3RF Coding Level of Care Code Est Pt Level 4 (99129) Diagnoses History of thyroid cancer Z85.850 Postoperative hypothyroidism E89.0 Type 1 diabetes mellitus with retinopathy without macular edema, unspecified laterality, unspecified retinopathy severity E10.319 Diabetic retinopathy severity: with unspecified retinopathy severity Diabetes mellitus macular edema: without macular edema Laterality: unspecified laterality Insulin pump in place Z96.41 Obesity due to excess calories with serious comorbidity, unspecified classification E66.09 Obesity type: due to excess calories Obesity classification: unspecified obesity classification Serious obesity comorbidity presence: with serious comorbidity Hyperlipidemia, unspecified hyperlipidemia type E78.5 Hyperlipidemia type: unspecified CPT Codes Details - CPT: 07595 - Glucose monitoring, continuous-physician I&R ([id number]) Time Spent (min) 30
--- OUTSIDE RECORDS SUMMARY | 2025-01-15 08:02 | XMS_ITS | Clinical Summary ---
Author Organization [facility] Facility Address [address] [place] [id number] Care Team Providers Care Programming Director Name Role Phone Cosmo Magaña MD Primary Care Provider [phone] Medications calcium carbonate (OS-MALIKA) 1250 (500 Ca) [...] Visual Foot Exam 05/02/2022 Influenza Vaccine (#1) 2025 Insurance [facility] Care Teams Programming Director Relationship Specialty Start Date End Date Cosmo Magaña MD 1962 [facility] [place] [address] PCP - General Internal Medicine 05/01/22
--- OUTSIDE RECORDS SUMMARY | 2025-01-15 08:02 | XMS_ITS | Patient Health Record ---
[facility] Organization [facility] Address [address] [facility] [place] [address] Care Team Providers Care Concrete Floater Name Role Phone Archana ABDI, Alisson Ugarte Primary Care Provider Un available Angelangela Minda Unavailable [phone] Allergies Allergen (clinical drug ingredient) Drug/Non Drug Allergy documented on EMR Reaction Allergy Type Onset Date Status bees (uncoded) swelling Allergy Activ e Results Component Value Reference Range Notes HEMOGLOBIN A1C (GLYCOHEMOGLO BIN) Reviewed date:10/26/2024 08:43:36 AM Interpretation: Performing Lab: Notes/Report: HEMOGLOBIN A1C % (HH) 6.0 HEMOGLOBIN A1C (GLYCOHEMOGLO BIN) Reviewed date:01/04/2025 09:24:32 AM Interpretation: Performing Lab: Notes/Report: HEMOGLOBIN A1C % (HH) 6.1 Reason For Referral No Information Medications Medication SIG (Take, Route, Frequency, Duration) Notes Start Date End Date Status Tirosint Active Terbinafine HCl 250 MG 1 tablet Orally O nce a day; Duration: 30 days 11/02/2024 Active Atorvastatin Calcium Active HumaLOG Active Ketoconazole 2 % 1 application Apply a thin layer to externally to feet, even between toes Twice a day; Duration: 30 days Active Synthroid Not-Taking NovoLOG Not-Taking Immunizations Vaccine Route Administration Date Status Comme nts Influenza Unknown 03/26/2017 Refused Influenza Unknown 04/15/2024 Administered Social History Tobacco Use: Social History Observation [...] W/U Status Risk Notes Problem Tinea unguium (777646557) Tinea unguium (B35.1) Active confirmed Problem Type I diabetes mellitus without complication (439454407) Type 1 diabetes mellitus without complications (E10.9) Active confirmed Vital Signs Blood pressure diastolic 80 mm Hg 01/04/2025 Height 5ft 5in in 01/04/2025 Blood pressure systolic 140 mm Hg 01/04/2025 Weight 325 lbs 01/04/2025 BMI 54.08 kg/m2 01/04/2025 Encounters Encounter Location Date Provider Diagnosis [address] [address] 10/26/2024 Minda Miranda Onychomycosis B35.1 ; Tinea pedis of both feet B35.3 ; Type 1 diabetes mellitus without complications E10.9 and Lower extremity edema R60.[address] [address] 01/04/2025 Minda Miranda Onychomycosis B35.1 ; Tinea pedis of both feet B35.3 ; Type 1 diabetes mellitus without complications E10.9 and Lower extremity edema R60.[address] [facility] [address] 10/02/2024 [facility] [address] 11/02/2024 Minda Miranda Assessments Encounter Date Diagnosis (ICD Code) Assessment Notes Treatment Notes Treatment Clinical Notes Section Notes 10/26/2024 Onychomycosis (ICD-10 - B35.1) 10/26/2024 Tinea pedis of both feet (ICD-10 - B35.3) 01/04/2025 Onychomycosis (ICD-10 - B35.1) 01/04/2025 Tinea pedis of both feet (ICD-10 - B35.3) 01/04/2025 Type 1 diabetes mellitus without complications (ICD-10 - E10.9) 10/26/2024 Type 1 diabetes mellitus without complications (ICD-10 - E10.9) 01/04/2025 Lower extremity edema (ICD-10 - R60.0) 10/26/2024 Lower extremity edema (ICD-10 - R60.0) Plan Of Treatment Pending Test Test Name Order Date *Liver Function Test (LFT) 10/26/2024 *Liver Function Test (LFT) 01/04/2025 Next Appt Details Provider Name:Minda miller, 01/03/2026 09:00:00 AM, [address] [facility], [place], [address], Insurance Providers Payer Name Payer Address Payer Phone Subscriber Number Group Number Insured Name Patient Relationship to Insured Coverage Start Date Coverage End Date [place] [address] [place] [phone] [id number] Rosemary Brooks Self - patient is the insured Medical (General) History Medical History History ICD Code Cholesterol Diabetic Chicken pox Thyroid disorder Cancer Surgical History Surgery Date(Month/Year) dental surgery 07/2006 thyroidectomy, partial 03/2020,10/2019 trigger release 01/2023
[2025-01-15 08:06] VITALS: BP 112/76; PULSE 85; O2SAT 98; BMI 64.6
[2025-01-15 08:30] LABS: Glucose, Whole Blood 126 mg/dL (60-115)
== END 2025-01-15 08:37 | disposition home or self-care (01) ==
LOC: HO.ENCR 08:00
PROVIDERS: PCP Internal Medicine; Visit Provider Student in an Organized Health Care Education/Training Program
DX: Z85.850 Personal history of malignant neoplasm of thyroid (principal); E89.0 Postprocedural hypothyroidism; E10.319 Type 1 diabetes mellitus with unspecified diabetic retinopathy without macular edema; Z96.41 Presence of insulin pump (external) (internal); E66.09 Other obesity due to excess calories; E78.5 Hyperlipidemia, unspecified
CPT/HCPCS: 95251; 99214

== ENCOUNTER → 2025-01-15 07:59 | Outpatient (BNVA) | payer OTHER, SELFPAY | PROVIDERS: PCP Internal Medicine; Visit Provider Student in an Organized Health Care Education/Training Program | DX: E10.319 Type 1 diabetes mellitus with unspecified diabetic retinopathy without macular edema (principal); E10.49 Type 1 diabetes mellitus with other diabetic neurological complication; E89.0 Postprocedural hypothyroidism; E66.09 Other obesity due to excess calories; E78.5 Hyperlipidemia, unspecified; Z68.44 Body mass index [BMI] 60.0-69.9, adult; Z96.41 Presence of insulin pump (external) (internal); Z85.850 Personal history of malignant neoplasm of thyroid | CPT/HCPCS: 82947 ==

== ENCOUNTER 2025-01-16 09:34 | Outpatient (REF) | payer OTHER, SELFPAY ==
--- OUTSIDE RECORDS SUMMARY | 2025-01-16 09:36 | XMS_ITS | Patient Health Record ---
Author [facility] Address [address] [facility] [place] [address] Care Team Providers Care Fha Underwriter Name Role Phone Archana ABDI, Alisson Ugarte Primary Care Provider Un available Angelangela Minda Unavailable [phone] Allergies Allergen (clinical drug ingredient) Drug/Non Drug [...] W/U Status Risk Notes Problem Tinea unguium (719940345) Tinea unguium (B35.1) Active confirmed Problem Type I diabetes mellitus without complication (093922637) Type 1 diabetes mellitus without complications (E10.9) Active confirmed Vital Signs Blood pressure diastolic 80 mm Hg 01/04/2025 Height 5ft 5in in 01/04/2025 Blood pressure systolic 140 mm Hg 01/04/2025 Weight 325 lbs 01/04/2025 BMI 54.08 kg/m2 01/04/2025 Encounters Encounter Location Date Provider Diagnosis [address] [address] 10/26/2024 Minda Miranad Onychomycosis B35.1 ; Tinea pedis of both feet B35.3 ; Type 1 diabetes mellitus without complications E10.9 and Lower extremity edema R60.[address] [address] 01/04/2025 Minda Miranda Onychomycosis B35.1 ; Tinea pedis of both feet B35.3 ; Type 1 diabetes mellitus without complications E10.9 and Lower extremity edema R60.0 [facility] [address] 10/02/2024 [facility] [address] 11/02/2024 Minda Miranda Assessments Encounter Date Diagnosis [...] Provider Name:Minda miller, 01/03/2026 09:00:00 AM, [address] [facility], [place], [address], Insurance Providers Payer Name Payer Address Payer Phone Subscriber Number Group Number Insured Name Patient Relationship to Insured Coverage Start Date Coverage End Date [place] [address] [place] [phone] [id number] Rosemary Brooks Self - patient is the insured Medical (General) History Medical History History ICD Code Cholesterol Diabetic Chicken pox Thyroid disorder Cancer Surgical History Surgery Date(Month/Year) dental surgery 07/2006 thyroidectomy, partial 03/2020,10/2019 trigger release 01/2023
--- OUTSIDE RECORDS SUMMARY | 2025-01-16 09:36 | XMS_ITS | Clinical Summary ---
Author Organization [facility] Address [address] [place] [address] Care Team Providers Care Licensed Sales Assistant Name Role Phone Cosmo Magaña MD Primary Care Provider [phone] Medications calcium carbonate (OS-MALIKA) 1250 (500 Ca) [...] Exam 05/02/2022 Influenza Vaccine (#1) 2025 Insurance [facility] Care Teams Licensed Sales Assistant Relationship Specialty Start Date End Date Cosmo Magaña MD [address] [place] [address] PCP - General Internal Medicine 05/01/22
[2025-01-16 11:38] LABS: Alanine Aminotransferase 14 U/L (0-31); Albumin Level 3.9 g/dL (3.5-5.0); Alkaline Phosphatase 129 U/L (39-117); Aspartate Amino Transferase 18 U/L (5-31); Total Protein 7.4 g/dL (6.5-8.0)
== END 2025-01-16 09:35 | disposition home or self-care (01) ==
LOC: HO.HMGCLDS 09:34
PROVIDERS: PCP Internal Medicine; Visit Provider Podiatrist
DX: B35.1 Tinea unguium (principal)
CPT/HCPCS: 36415; 80076

== ENCOUNTER 2025-02-15 15:27 | Outpatient (REF) | payer OTHER, SELFPAY ==
--- NOTE | ~2025-02-15 | US_ITS ---
EXAMINATION: US SOFT TISSUE HEAD AND NECK. CLINICAL INFORMATION: Personal history of malignant neoplasm of thyroid. Status post total thyroidectomy.. COMPARISON: Ultrasound soft tissue neck 06/07/2023 TECHNIQUE: Linear transducer alfaro-scale and color Doppler examination with attention to the region of the thyroid. FINDINGS: RIGHT NECK: Right level 1B lymph node measuring 0.63 x 0.44 x 0.78 cm and has normal appearance. Previously measured 0.70 x 0.60 x 0.50 cm. LEFT NECK: No lymph nodes visualized. Thyroid gland is surgically absent. No residue thyroid tissue seen. US/US soft tiss head and/or neck IMPRESSION: Solitary lymph node in right neck. Previously seen lymph nodes in the right and left neck are not visualized at this time. Electronically signed by: Aaron Echeverria MD 02/16/2025 07:31 AM EDT
--- OUTSIDE RECORDS SUMMARY | 2025-02-15 15:57 | XMS_ITS | Clinical Summary ---
Author Organization [facility] Address [address] [facility] [address] [place] [address] Phone Care Team Providers Care Strategy Manager Name Role Phone Dominique Navarro MD Unavailable [phone] Alisson Magaña MD Primary Care Provider Allergies Active Allergy Reactions Criticality Noted Date Comments Other Swelling 09/22/2015 BEES Medications cholecalciferol (VITAMIN D3) 2,000 unit tablet Take 1,000 Units by mouth daily. Active HUMALOG U-100 INSULIN 100 unit/mL injection vial INJECT 150 UNITS DAILY VIA INSULIN PUMP 3 Active TIROSINT 100 mcg Cap Take 250 mcg by mouth every morning. 3 Active lisinopril (PRINIVIL,ZESTRI L) 2.5 MG tablet Take 1 tablet by mouth daily. Active ipratropium (ATROVENT) 42 mcg (0.06 %) nasal spray SPRAY 2 SPRAYS INTRANASALLY 3 TIMES A DAY NEEDED FOR 7 DAYS Active ezetimibe (ZETIA) 10 mg tablet Take 1 tablet by mouth daily. Active atorvastatin (LIPITOR) 80 MG tablet Take 1 tablet by mouth nightly at bedtime. Active semaglutide (WEGOVY) 0.5 mg/0.5 mL subcutaneous injection Inject 0.5 mL (0.5 mg total) under the skin every 7 days. 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 She is very interested in trying a GLP-1. We reviewed risks, benefits. We discussed increased risk of hypoglycemia given her type 1 diabetes and insulin needs. She feels comfortable managing her pump and her manager primary was on board with her starting a GLP- 1. She will contact him if she has any difficulty managing her sugars after starting. With regards to her history papillary thyroid cancer this is not a contraindication to treatment with GLP-1 I have recommended the following Anti-Obesity Medication: Semaglutide The patient has completed > 6 months of efforts focused on dietary and lifestyle changes and has been unsuccessful in reaching their weight loss goals. They will start at start 0.25 mg subq weekly, then if tolerated we can titrate dose q 4 weeks. I have explained that this medication decreases appetite & food cravings and increases feeling of fullness. I have reviewed the following possible side effects: injection site reactions, Nausea, vomiting, constipation, gastroparesis, SBO, pancreatitis, increased risk of medullary thyroid cancer, increased risk of MEN2, suicidal thoughts, diabetic retinopathy, optic neuropathy, low blood sugar This medication is not recommended in and in patients with a personal or family history of medullary thyroid cancer or multiple endocrine neoplasia 2A or 2B. We also discussed health insurance inflicted barriers to obtaining GLP1RA and possible need for prior authorization & appeal Assessment & Plan (10/24/2023 10:02 AM EDT): Pt was educated on the pathophysiology of obesity, which is a chronic, relapsing, often progressive neuroendocrine disease with behavioral components. We discussed treatment approaches including lifestyle changes, pharmacotherapy & bariatric surgery. We discussed their personal treatment goals. We discussed targeting a weight loss goal of 5-10% over the next 6 months as this modest amount of weight loss has been shown to decrease blood pressure, insulin resistance, sleep apnea, liver inflammation, arthritic pain and improve dyslipidemia. She believes she had a recent comprehensive lab evaluation so I requested that she send those results to me Patient was given the initial meal plan and exercise recommendations. I recommend patient work with our dietitian, Margarita Han RD and have asked them to schedule an appt. In terms of pharmacologic treatment she is most interested in a GLP-1 receptor agonist. We discussed drug shortages. We also discussed risk of hypoglycemia in patients with type 1 diabetes on these agents. Furthermore she has a history of thyroid cancer and does not know what kind. Medullary thyroid cancer would be a contraindication. Other medication treatment options including topiramate, phentermine and Wellbutrin. She opts to trial topiramate I have recommended the following Anti-Obesity Medication: Topiramate They will start at start at 25 mg and we will titrate up as tolerated. I have explained that this medication works by suppressing appetite, working on the reward center of the brain, and may stimulate lipolysis in some patients. I have reviewed the following possible side effects: Taste alteration, paresthesias, memory loss, constipation, somnolence, kidney stones. Additionally I have explained that Topirimate is teratogenic and should not be used in patients with risk of . She says that she and her will use condoms Female infertility 06/25/2023 Overview (06/25/2023): Regular cycles, trying for one year (May 2023). Advised to pursue weight loss prior to fertility eval or treatment. Informed of [facility] OB bariatric limitations Essential (primary) hypertension 05/03/2022 Proteinuria 05/03/2022 Vitamin D deficiency 05/03/2022 Malignant neoplasm of thyroid gland 07/08/2020 Overview (02/05/2024): Papillary thyroid cancer Complete thyroidectomy 2019 Advised to iodine treatment Follows with Dr. Bedolla at [facility]. Assessment & Plan (02/05/2024 9:41 PM EDT): We had a discussion regarding the concern go. 1 such that it is possibly increasing his medullary thyroid cancer. There is no evidence that it increases the risk of papillary thyroid cancer which she had years ago. She has undergone total thyroidectomy. And has her labs monitored by manager primary. She understands that there is not enough data about use of GLP-1's in patients with nonmedullary thyroid cancers. I am happy to reach out to her specialist in [place] for their opinion about her proceeding with GLP-1 treatment for obesity Acquired hypothyroidism 09/06/2017 Type 1 diabetes mellitus without complication Overview (02/05/2024): DIABETES HISTORY Diagnosis - type 1 diabetes, dx at age 2 Treatment history - insulin pump, Tresiba, Novolog Follows with Dr. Bedolla Assessment & Plan (04/15/2018 8:41 AM EDT): We discussed a significant reduction of Tresiba [...] to call with any questions or concerns Assessment & Plan (09/09/2017 1:16 PM EDT): We discussed the benefits of more consistent blood sugar monitoring, prescription for Freestyle Michele sent to pharmacy, we also discussed Dexcom CGM Would be a very good candidate for insulin pump therapy however this is not affordable Changes to healthier eating which Sarai has made as well as planned increased activity will both help blood sugar management Improved glycemic control will reduce risk of complications Uncoded 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 Needs anesthesia consult for any surgical procedures. Resolved Problems Problem Noted Date Diagnosed Date Resolved Date Obesity 09/06/2017 02/05/2024 Overview (06/25/2023): Last Assessment & Plan: Notes 30lb weight gain since thyroid surgery Assessment & Plan (07/08/2020 4:38 PM EST): Notes 30lb weight gain since thyroid surgery Assessment & Plan (04/15/2018 8:44 AM EDT): Lise is consistent with physical activity, we discussed the effects of certain exercises on weight loss vs other exercises, her concentration on HIIT may be very helpful with respect to muscle toning and cardiovascular health, a balance of low and high intensity exercise and paying attention to heart rate zones be more effective with respect to fat burning and weight loss, I advised she speak with her operational trainer regarding these Advised to continue her attention to healthy diet Assessment & Plan (09/09/2017 1:14 PM EDT): Weight loss would help improve insulin sensitivity and blood sugar control Advised to increase activity and continue efforts at healthier eating Immunizations Immunization Administration Dates Next Due Influenza Quadrivalent Preservative Free IM 03/01 Tdap 03/13/2022 Family History Medical History Relation Comments No Known Problems Brother Cardiovascular disease Father Pacemaker Father Pulmonary embolism Mother Uterine cancer Mother Fibroids Sister Other Unspecified No known autoimm une in family. Mother punctured diaphragm when fell on it. Relation Status Comments Brother Father Alive Mother Alive Sister Unspecified Social History Tobacco Use Types Packs/Day Years Used Date Smoking Tobacco: Never Smokeless Tobacco: Never Tobacco Cessation:Counseling Given: Not Answered Alcohol Use Standard Drinks/Week Comments Yes 0 (1 standard drink = 0.6 oz pur e alcohol) socially, rare Education Answer Date Recorded Are you interested in more education? Not on jozef e 10/26/2022 Are you concerned about learning? Not on file 10/26/2022 No 10/26/2022 No 10/26/2022 Digital Access Answer Date Recorded No 11/26/2022 No 11/26/2022 Reliable internet access at home? Not on file 11/26/2022 Device with a working camera? Not on file Comments No Sex and Gender Information Value Date Recorded Sex Assigned at Not on file Legal Sex Female 9:05 PM EDT Gender Identity Not on file Sexual Orientation Not on file Last Filed Vital Signs Vital Sign Reading Time Taken Comments Blood Pressure 118/72 02/05/2024 4:50 PM EDT Pulse 90 02/05/2024 4:50 PM EDT Temperature 36.7 C (98 F) 02/05/2024 4:50 PM EDT Respiratory Rate - - Oxygen Saturation 100% 02/05/2024 4:50 PM EDT Inhaled Oxygen Concentration - - Weight 154.8 kg (341 lb 3.2 oz) 02/05/2024 4:50 PM EDT Height 165.1 cm (5' 5 ) 02/05/2024 4:50 PM EDT Body Mass Index 56.78 02/05/2024 4:50 PM EDT Plan of Treatment Health Maintenance Due Date Last Done Comments CREATININE LEVEL 1989 POTASSIUM LEVEL 1989 TSH LEVEL 1989 DEPRESSION SCREENING 2001 HEPATITIS C SCREENING 2007 HIV ONE-TIME SCREENING (18-6 5 YEARS) 2007 PNEUMOCOCCAL VACCINES (0-49 years) (1 of 2 - PCV) 2008 DIABETIC EYE EXAM 09/06/2017 HEMOGLOBIN A1C 07/15/2018 04/14/2018, 09/09/2017 PAP SMEAR 07/08/2023 07/08/2020, 12/27/2017, 12/27/2017 COVID-19 VACCINE (1 - 2023-2 5 season) 2024 BLOOD PRESSURE 08/07/2024 02/05/2024 Adult Td,Tdap Booster 03/13/2032 03/13/2022 SMOKING STATUS SCREENING (On ce After 26 Yrs) Completed 02/05/2024 HEPATITIS A VACCINES Aged Out No long er eligible based on patient's age to complete this topic HIB VACCINES Aged Out No longer eligi ble based on patient's age to complete this topic MENINGOCOCCAL VACCINES (ACWY) Aged Out No longer eligible based on patient's age to complete this topic MENINGOCOCCAL VACCINES (B) Aged Out N o longer eligible based on patient's age to complete this topic Medical Devices Not on file Procedures Procedure Name Priority Date/Time Associated Diagnosis Comments PAP TEST Routine 07/08/2020 12:00 AM EST POCT HEMOGLOBIN A1C Routine 04/14/2018 2 :23 PM EDT Type 1 diabetes from Last 3 Months or Most Recently Relevant to Health Maintenance Results * Pap Smear (07/08/2020 12:00 AM EST) 07/08/2020 07/11/2020 8:4 8 AM EST Narrative SEE NARRATIVE - 07/13/2020 10:05 AM EST [address] [address] Melt Superintendant: Caroline Harmon MD PRODUCE WEIGHER Cytology Report FINAL DIAGNOSIS A. PAP SMEAR (SUREPATH) CE: SPECIMEN ADEQUACY: Satisfactory for evaluation; transformation zone present. INTERPRETATION: NEGATIVE FOR INTRAEPITHELIAL LESION OR MALIGNANCY. Electronically Signed Out By: CARSON Treviño(ASCP) The Pap test is a screening test primarily for squamous cancers and precursors and has associated false-negative and false-positive results. New technologies such as liquid-based preparations may decrease but will not eliminate all false-negative results. Regular sampling and follow-up of unexplained clinical signs and symptoms are recommended to minimize false negative results. PROCEDURES/ADDENDA HPV Testing (Requested) Ordered Date: 07/11/2020 A. PAP SMEAR (SUREPATH) CE: Human Papilloma Virus Test Negative for high-risk human papillomavirus types 16, 18, 45 and the Other high risk probe set (Includes 31, 33, 35, 39, 51, 52, 56, 58, 59, 66, 68) by [employer] Onclarity HR-HPV analysis. Clinical correlation is advised. This HPV test was performed at [facility], [address] [place] [address]. This test has been FDA approved for SurePath cervical cytology specimens. The accuracy and precision of this test for all other specimen sources has been verified in the Cytopathology Laboratory of the [facility] and has not been cleared or approved by the U.S. Food and Drug Administration. Clinical correlation is advised. CLINICAL HISTORY Date of Last Menstrual Period: Not Provided Menstrual History: Unknown Contraceptive History: Nuva Ring Other Clinical Conditions: Screening Pap SPECIMEN SOURCE A: PAP SMEAR (SUREPATH) CE Patient Name: LISE BROOKS : 1990 (Age: 30) Sex: F Institution: [facility] Location: [facility] Date of Collection: 07/08/2020 Date of Reported: 07/12/2020 13:17 Results to: Christy Daniels MD us Christy Daniels MD CYTOLOGY ORDERABLES Edited Result - Final SEE NARRATIVE * (ABNORMAL) POCT Hemoglobin A1c (04/14/2018 2:23 PM EDT) Hemoglobin A1c 9.2(A) 4.2 - 5.8 % [facility] Other 04/14/2018 2:23 PM EDT us Dominique Navarro MD POINT OF CARE TEST ORDERABLES F inal Result [address] [phone] from Last 3 Months or Most Recently Relevant to Health Maintenance [place] [address] [facility] P[facility] P[facility] P[facility] PPO Care Teams Strategy Manager Relationship Specialty Start Date End Date Alisson Magaña MD [facility] [address] [place] [address] PCP - General 07/04/17 Dominique Navarro MD [address] [facility], [address] [place] [address] [email or web address] Historical LMR Provider 04/15/17 Additional Source Comments The information contained in this document represents components of the legal health record. It is not the complete legal health record.[facility]
--- OUTSIDE RECORDS SUMMARY | 2025-02-15 15:57 | XMS_ITS | Patient Health Record ---
[facility] Address [address] [facility] [place] [address] Care Team Providers Care Paint Stock Clerk Name Role Phone Archana ABDI, Alisson Ugarte Primary Care Provider Un available Angelangela Minda Unavailable [phone] Allergies Allergen (clinical drug ingredient) Drug/Non Drug [...] W/U Status Risk Notes Problem Tinea unguium (216955854) Tinea unguium (B35.1) Active confirmed Problem Type 1 diabetes mellitus without complications (E10.9) Active confirmed Vital Signs Blood pressure diastolic 80 mm Hg 01/04/2025 Height 5ft 5in in 01/04/2025 Blood pressure systolic 140 mm Hg 01/04/2025 Weight 325 lbs 01/04/2025 BMI 54.08 kg/m2 01/04/2025 Encounters Encounter Location Date Provider Diagnosis [address] [address] 10/26/2024 Minda Miranda Onychomycosis B35.1 ; Tinea pedis of both feet B35.3 ; Type 1 diabetes mellitus without complications E10.9 and Lower extremity edema R60.[address] [address] 01/04/2025 Minda Perica Onychomycosis B35.1 ; Tinea pedis of both feet B35.3 ; Type 1 diabetes mellitus without complications E10.9 and Lower extremity edema R60.[address] [address] 01/18/2025 [facility] [address] 10/02/2024 Minda Miranda [address] [address] 11/02/2024 Minda Miranda Assessments Encounter Date Diagnosis [...] Provider Name:Minda miller, 01/03/2026 09:00:00 AM, [address] [facility], [place], [address], Insurance Providers Payer Name Payer Address Payer Phone Subscriber Number Group Number Insured Name Patient Relationship to Insured Coverage Start Date Coverage End Date [place] [address] [place] [phone] [id number] Rosemary Brooks Self - patient is the insured Medical (General) History Medical History History ICD Code Cholesterol Diabetic Chicken pox Thyroid disorder Cancer Surgical History Surgery Date(Month/Year) dental surgery 07/2006 thyroidectomy, partial 03/2020,10/2019 trigger release 01/2023
--- OUTSIDE RECORDS SUMMARY | 2025-02-15 15:57 | XMS_ITS | Clinical Summary ---
Author Organization [facility] Facility Address [address] [place] [address] Care Team Providers Care Airport Skilled Maintenance Supervisor Name Role Phone Cosmo Magaña MD Primary Care Provider [phone] Medications calcium carbonate (OS-MALIKA) 1250 (500 Ca) [...] Exam 05/02/2022 Influenza Vaccine (#1) 2025 Insurance [facility] Care Teams Airport Skilled Maintenance Supervisor Relationship Specialty Start Date End Date Cosmo Magaña MD [address] [place] [address] PCP - General Internal Medicine 05/01/22
== END 2025-02-15 15:28 | disposition home or self-care (01) ==
LOC: HO.HMGCX 15:27
PROVIDERS: PCP Internal Medicine; Visit Provider Student in an Organized Health Care Education/Training Program
DX: E89.0 Postprocedural hypothyroidism (principal); Z85.850 Personal history of malignant neoplasm of thyroid
CPT/HCPCS: 76536

== ENCOUNTER → 2025-02-15 15:30 | Outpatient (BNV) | payer OTHER, SELFPAY | PROVIDERS: PCP Internal Medicine; Visit Provider Radiology Diagnostic Radiology | DX: R59.0 Localized enlarged lymph nodes (principal); Z85.850 Personal history of malignant neoplasm of thyroid; Z90.09 Acquired absence of other part of head and neck | CPT/HCPCS: 76536 ==

== ENCOUNTER 2025-03-06 09:47 | Outpatient (REF) | payer OTHER, SELFPAY ==
--- OUTSIDE RECORDS SUMMARY | 2025-01-18 10:17 | XMS_ITS ---
Author Organization [facility] Address [address] [place] [address] Care Team Providers Care Radiology Transporter Name Role Phone Archana ABDI, Alisson Ugarte Primary Care Provider Un available Minda Miranda Unavailable [phone] REASON FOR VISIT Lab results Encounters Encounter Location Date Provider Diagnosis [facility] [address] [place] [address] 01/18/2025 Minda Miranda Tinea unguium B35.1 Assessments Encounter Date Diagnosis (ICD Code) Assessment Notes Treatment Notes Treatment Clinical Notes Section Notes 01/18/2025 Tinea unguium (ICD-10 - B35.1) Plan Of Treatment Pending Test Test Name Order Date *Liver Function Test (LFT) 01/18/2025 Next Appt Details Provider Name:Minda miller, 01/03/2026 09:00:00 AM, [address] [place] [address], [address], Progress Notes * Rosemary BROOKSDOB:1 (34 yo F)Acc No.[id number]:01/18/2025 Patient: Bucky HUGHES Rosemary :1990 A ge:34 Y S ex:Female Address:[address] [place], [place] [address], [address] Subjective: * Chief Complaints: * L ab results * Medical History: * Surgical History: * Hospitalization/Major Diagno stic Procedure: * Medications: Objective: * Vitals: * Physical Examination: Assessment: * Assessment: 1. T ze pate - B35.1 (Primary) Plan: * Treatment: * Procedure Codes: * * Date:
--- OUTSIDE RECORDS SUMMARY | 2025-03-06 09:52 | XMS_ITS | Clinical Summary ---
Author Organization [facility] Facility Address [address] [place] [address] Care Team Providers Care Tracing Lathe Set Up Operator Name Role Phone Cosmo Magaña MD Primary Care Provider [phone]- [phone] Medications calcium carbonate (OS-MALIKA) 1250 (500 Ca) [...] Exam 05/02/2022 Influenza Vaccine (#1) 2025 Insurance [facility] Care Teams Tracing Lathe Set Up Operator Relationship Specialty Start Date End Date Cosmo Magaña MD [address] [facility] [place] [address] PCP - General Internal Medicine 05/01/22
--- OUTSIDE RECORDS SUMMARY | 2025-03-06 09:52 | XMS_ITS | Clinical Summary ---
Author Organization [facility] Address [address] [facility] [address] [place] [address] Phone Care Team Providers Care Charge Histotechnologist Name Role Phone Dominique Navarro MD Unavailable [phone] Alisson Magaña MD Primary Care Provider [...] feels comfortable managing her pump and her golf club maker was on board with her starting a [...] I recommend patient work with our dietitian, Magrarita Han RD and have asked them to [...] iodine treatment Follows with Dr. Bedolla at [place]. Assessment & Plan (02/05/2024 9:41 PM EDT): We had a discussion regarding the concern go. 1 such that it is possibly increasing his medullary thyroid cancer. There is no evidence that it increases the risk of papillary thyroid cancer which she had years ago. She has undergone total thyroidectomy. And has her labs monitored by golf club maker. She understands that there is not enough data about use of GLP-1's in patients with nonmedullary thyroid cancers. I am happy to reach out to her specialist in [place] for their opinion about her proceeding with [...] loss, I advised she speak with her personal development coach regarding these Advised to continue her attention [...] 09/09/2017 PAP SMEAR 07/08/2023 07/08/2020, 12/27/2017, 12/27/2017 BLOOD PRESSURE 08/07/2024 02/05/2024 INFLUENZA VACCINE (#1) 2025 03/10/2021 COVID-19 VACCINE ( - 2023-2 5 season) 2025 Adult Td,Tdap Booster 03/13/2032 03/13/2022 SMOKING STATUS [...] SEE NARRATIVE - 07/13/2020 10:05 AM EST [address] [address] [employer] Supervisor: Caroline Harmon MD SENIOR MARKETING SPECIALIST Cytology Report FINAL DIAGNOSIS A. PAP SMEAR [...] 52, 56, 58, 59, 66, 68) by [employer] Onclarity HR-HPV analysis. Clinical correlation is advised. This HPV test was performed at [facility], [address] [place] [address]. This test has been FDA approved for SurePath cervical cytology specimens. The accuracy and precision of this test for all other specimen sources has been verified in the Cytopathology Laboratory of the [facility] and has not been cleared or approved by the U.S. Food and Drug Administration. Clinical correlation is advised. CLINICAL HISTORY Date of Last Menstrual Period: Not Provided Menstrual History: Unknown Contraceptive History: Nuva Ring Other Clinical Conditions: Screening Pap SPECIMEN SOURCE A: PAP SMEAR (SUREPATH) CE Patient Name: LISE BROOKS : 1990 (Age: 30) Sex: F [facility] Location: [facility] Date of Collection: 07/08/2020 Date of Reported: 07/12/2020 13:17 Results to: Christy Daniels MD us Christy Daniels MD CYTOLOGY ORDERABLES Edited Result - Final SEE NARRATIVE * (ABNORMAL) POCT Hemoglobin A1c (04/14/2018 2:23 PM EDT) Hemoglobin A1c 9.2(A) 4.2 - 5.8 % [facility] Other 04/14/2018 2:23 PM EDT us Dominique Navarro MD POINT OF CARE TEST ORDERABLES F inal Result [address] [phone] from Last 3 Months or Most Recently Relevant to Health Maintenance Insurance [facility] PPO [facility] PPO [facility] PPO [facility] PPO Care Teams Charge Histotechnologist Relationship Specialty Start Date End Date Alisson Magaña MD [facility] [address] [place] [address] PCP - General 07/04/17 Dominique Navarro MD [address] [facility] [place] [address] [email or web address] Historical LMR Provider 04/15/17 Additional Source Comments The information contained in this document represents components of the legal health record. It is not the complete legal health record.[facility]
--- OUTSIDE RECORDS SUMMARY | 2025-03-06 09:53 | XMS_ITS | Patient Health Record ---
Author Organization [facility] Address [address] [facility] [place] [address] Care Team Providers Care Identification Officer Name Role Phone Archana ABDI, Alisson Ugarte Primary Care Provider Un available Angelangela Minda Unavailable [phone] Allergies Allergen (clinical drug ingredient) Drug/Non Drug [...] W/U Status Risk Notes Problem Tinea unguium (636011487) Tinea unguium (B35.1) Active confirmed Problem Type I diabetes mellitus without complication (374423011) Type 1 diabetes mellitus without complications (E10.9) Active confirmed Vital Signs Blood pressure diastolic 80 mm Hg 01/04/2025 Height 5ft 5in in 01/04/2025 Blood pressure systolic 140 mm Hg 01/04/2025 Weight 325 lbs 01/04/2025 BMI 54.08 kg/m2 01/04/2025 Encounters Encounter Location Date Provider Diagnosis [address] [address] 10/26/2024 Minda Perica Onychomycosis B35.1 ; Tinea pedis of both feet B35.3 ; Type 1 diabetes mellitus without complications E10.9 and Lower extremity edema R60.[address] [address] 01/04/2025 Minda Perica Onychomycosis B35.1 ; Tinea pedis of both feet B35.3 ; Type 1 diabetes mellitus without complications E10.9 and Lower extremity edema R60.[address] [address] 01/18/2025 Minda Pericangela Tinea unguium B35.[address] [address] 10/02/2024 Minda Perica [address] [address] 11/02/2024 Minda Miranda Assessments Encounter Date Diagnosis (ICD Code) Assessment Notes Treatment Notes Treatment Clinical Notes Section Notes 10/26/2024 Onychomycosis (ICD-10 - B35.1) 10/26/2024 Tinea pedis of both feet (ICD-10 - B35.3) 01/04/2025 Onychomycosis (ICD-10 - B35.1) 01/04/2025 Tinea pedis of both feet (ICD-10 - B35.3) 01/18/2025 Tinea unguium (ICD-10 - B35.1) 01/04/2025 Type 1 diabetes mellitus without complications (ICD-10 - E10.9) 10/26/2024 Type 1 diabetes mellitus without complications (ICD-10 - E10.9) 01/04/2025 Lower extremity edema (ICD-10 - R60.0) 10/26/2024 Lower extremity edema (ICD-10 - R60.0) Plan Of Treatment Pending Test Test Name Order Date *Liver Function Test (LFT) 10/26/2024 *Liver Function Test (LFT) 01/04/2025 *Liver Function Test (LFT) 01/18/2025 Next Appt Details Provider Name:Minda miller, 01/03/2026 09:00:00 AM, [address] [facility], [place], [address], Insurance Providers Payer Name Payer Address Payer Phone Subscriber Number Group Number Insured Name Patient Relationship to Insured Coverage Start Date Coverage End Date [place] [address] [place] [phone] [id number] Rosemary Brooks Self - patient is the insured Medical (General) History Medical History History ICD Code Cholesterol Diabetic Chicken pox Thyroid disorder Cancer Surgical History Surgery Date(Month/Year) dental surgery 07/2006 thyroidectomy, partial 03/2020,10/2019 trigger release 01/2023
[2025-03-06 11:36] LABS: Alanine Aminotransferase 18 U/L (0-31); Albumin Level 3.9 g/dL (3.5-5.0); Alkaline Phosphatase 123 U/L (39-117); Aspartate Amino Transferase 20 U/L (5-31); Total Protein 7.2 g/dL (6.5-8.0)
== END 2025-03-06 09:48 | disposition home or self-care (01) ==
LOC: HO.HMGCLDS 09:47
PROVIDERS: PCP Internal Medicine; Visit Provider Podiatrist
DX: B35.1 Tinea unguium (principal)
CPT/HCPCS: 36415; 80076

== ENCOUNTER 2025-03-16 07:38 | Outpatient (AMB) | payer OTHER, SELFPAY ==
--- OUTSIDE RECORDS SUMMARY | 2025-01-18 10:17 | XMS_ITS ---
Author Organization [facility] Address [address] [place] [address] Care Team Providers Care Engineer Operations And Maintenance Name Role Phone Archana ABDI, Alisson Ugarte Primary Care Provider Un available Minda Miranda Unavailable [phone] REASON FOR VISIT Lab results Encounters Encounter Location Date Provider Diagnosis [facility] [address] [place] [address] 01/18/2025 Minda Miranda Tinea unguium B35.1 Assessments Encounter Date Diagnosis (ICD Code) Assessment Notes Treatment Notes Treatment Clinical Notes Section Notes 01/18/2025 Tinea unguium (ICD-10 - B35.1) Plan Of Treatment Pending Test Test Name Order Date *Liver Function Test (LFT) 01/18/2025 Next Appt Details Provider Name:Minda miller, 01/03/2026 09:00:00 AM, [address] [place] [address], [address], Progress Notes * Rosemary BROOKSDOB:1 (34 yo F)Acc No.[id number]:01/18/2025 Patient: Bucky HUGHES Rosemary :1990 A ge:34 Y S ex:Female Address:[address] [place], [place] [address], [address] Subjective: * Chief Complaints: * L ab results * Medical History: * Surgical History: * Hospitalization/Major Diagno stic Procedure: * Medications: Objective: * Vitals: * Physical Examination: Assessment: * Assessment: 1. T ze pate - B35.1 (Primary) Plan: * Treatment: * Procedure Codes: * * Date:
[2025-03-16 07:40] VITALS: BP 110/82; PULSE 79; O2SAT 98; BMI 63.4
--- NOTE | 2025-03-16 07:40 | A.OFFVIS_ITS ---
Vital Signs 3 03/16/25 07:40 Height 5 ft 2 in Weight 346 lb 12.594 oz BMI 63.4 BP 110/82 Blood Pressure Location Rt brachial Position Sitting Pulse 79 Pulse Source Pulse Oximeter Pulse Oximetry (%) 98 Oxygen Delivery Method Room Air Intake Visit Reasons: T1DM/Thyroid cancer Intake Note: Patient present today for Type 2 Diabetes Mellitus and thyroid cancer. 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 Accompanied by: Self / Same As Patient Allergies No Known Allergies Allergy (Verified 03/16/25 07:45) Medication List - Last Reconciled 03/16/25 by Andreia Davis MD acetone (urine) test (Ketone Urine Test strips) As directed to use in case of emergency atorvastatin 40 mg PO DAILY blood-glucose sensor (Dexcom G7 Sensor device) As directed cholecalciferol (vitamin D3) 125 mcg PO DAILY glucagon 3 mg/actuation 3 mg intranasal ONCE insulin lispro (Humalog U-100 Insulin) 150 units (1.5 mL) subcut DAILY Lantus U-100 Insulin (insulin glargine) 40 units (0.4 mL) subcut DAILY NS Tirosint (levothyroxine) 200 mcg PO DAILY NS tirzepatide (weight loss) (Zepbound) 2.5 mg (0.5 mL) subcut QWEEK vitamin B complex 1 cap PO DAILY HPI Comments Details: 34-year-old female coming in today for follow up of papillary thyroid cancer status post right hemithyroidectomy [place] [address] Parth Dutta at [facility], which revealed PTC 1.5 cm with no extrathyroidal extension, no angioinvasion, no lymphatic invasion, uninvolved margins, 0/2 lymph nodes positive, AJCC stage I pT1b N0 a, HEIDI low risk of recurrence, status post completion thyroidectomy 03/23/2020, with pathology revealing 2 foci of PTC measuring 1.6 cm and 0.2 cm, with a 1.6 cm foci having ill-defined margins and capsular invasion, moving her up to HEIDI intermediate risk of recurrence. Status post I 131 remnant ablation with 29.1 mCi of I 131 08/24/2020, who is currently HEIDI excellent response to therapy. She is also here for follow up of type 1 diabetes mellitus. History of PTC in detail 2020: Noted to have goiter on exam and underwent thyroid ultrasound which revealed multinodular thyroid 08/06/2019: FNA biopsy: Of a right midpole nodule measuring 1 cm with peripheral calcification came back as [place] category 5, suspicious for PTC. 2020: Right hemithyroidectomy with Dr. Parth Dutta at [facility] which revealed PTC 1.5 cm with no extrathyroidal extension, no angioinvasion, no lymphatic invasion, uninvolved margins, 0/2 lymph nodes positive, AJCC stage I pT1b N0 a, HEIDI low risk of recurrence 03/23/2020, status post completion thyroidectomy with pathology revealing 2 foci of PTC measuring 1.6 cm and 0.2 cm, with a 1.6 cm foci having ill-defined margins and capsular invasion, moving her up to HEIDI intermediate risk of recurrence. 08/24/2020: Status post I 131 remnant ablation with 29.1 mCi of I 131 08/20/2020: TSH 45.3, TG less than 0.1, TG antibody negative Whole-body scan subsequent to treatment showed faint uptake it within the neck, a lack of physiologic activity throughout the body which was concerning for her a high iodine load prior to treatment. 10/01/2020: TSH 16.71, TG less than 0.1, TG antibody undetectable. Dose of levothyroxine was increased to 200 mcg p.o. daily. 01/07/2021: TSH 3.81, TG less than 0.1, TG antibody less than 1. Change to Tirosint 200 mcg p.o. daily due to suspected absorption issues with levothyroxine. 12/07/2021: Ultrasound neck showed normal lymph nodes 06/07/2023: Ultrasound neck showed left level 5A, 1.8 X 0.9 X 1.4 cm node with cortical thickening and a left level 3, 2 X 0.8 X 1 cm lymph node with borderline cortical thickening. Patient was just recovering from [id number] disease. 10/2023: Saw Dr. Ugarte at [facility], ultrasound neck showed normal- appearing lymph nodes. Reports some fullness /pressure in neck but feels there is a lot of fat tissue deposition due to weight gain No changes to voice Denies any symptoms of hyper or hypothyroidism. 08/25/2024: TSH 0.12, free T4 1.44. TG less than 0.1, TG less than 1 08/27/2024: Tirosint reduced from 250 mcg daily to 225 mcg daily 11/22/2024: TSH 0.23, free T4 1.21 11/06/2024: Tirosint reduced to 200 mcg daily. Did not do neck ultrasound, forgot to schedule again 12/25/2024: TSH 1.76, free T4 1.34 She is on Tirosint brand name , not generic because levothyroxine was not getting her TSH to target Interval history 02/15/2025: Ultrasound neck shows normal-appearing lymph node. T1DM: Initially diagnosed with T1DM at the age of 2. She is currently using the Tandem T-Slim insulin pump and the DEXCrossborders G7 CGM. Pump/Sensor: Uses Tandem T-Slim insulin pump with Lispro. Does use Control IQ. Pump settings: Basal rate(s) (units/hour) : 12 AM?to 5 AM 1.64 units / hr 5 AM to 2 PM 1.68 units / hr 2 PM to 6 PM 1.77units / hr 6 PM to 12 AM 1.68 units / hr Bolus setting Insulin Carbohydrate Ratio (s) 12 AM?to 12 AM? 1:3 Correction Factor / Sensitivity Factor 12 AM?to 12 AM? 1:11 Active Insulin Time:? 3 hours Target(s): 12 AM? to 12 AM 100 mg/dL with control IQ off Target 110 mg/dL with control IQ on Tandem T slim pump with Dexcom G7 downloaded from March 03 to 03/16/2025 Average glucose 131 mg/dL Time in range 92% Standard deviation 30 mg/dL Coefficient of variation 23% G UT 6.4% With a an target range 92% High 5.9% Very high 0% Low 1.7% Very low 0.7% Control IQ summary Time active 79% Interpretation: Mostly excellent glycemic control Insulin use it average daily dose 92.36 units Basal 40% , 36.81 unit Bolus 60%, 55.54 units Denies family history of autoimmunity. Random Glucose: 130 mg/dl HgA1C: 6.1% 10/31/24 6.0% 03/16/25 Last Diabetic eye exam: 02/11/2025 Last Podiatry Visit: 01/04/25 [facility] She was in the past trying for , had to deal with fertility issues, at this point she is not interested and not actively trying. I did tell her statin is teratogenic, and she would need to tell us if she gets as soon as possible. Has eyes checked yearly, last eye exam in 02/22 , she reports there is concern for retinopathy. She sees at [facility]. Denies Neuropathy. Does have stocking glove pattern distribution of paresthesias. , podiatry visit 01/22 [facility] No Nephropathy, off SATISH/ARB as she was trying to conceive. Normal urine microalbumin from labs done in October 2024 Has HLD, she has not been very adherent with her atorvastatin 40 mg daily. LDL elevated to 129 mg/dL. October 2024 Denies CAD Has had diabetes education. Diet/Carb counting: Is comfortable with carb counting. 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 : saw nutritonist January 2025, keeping a food diary , working on macros Physical exam General: sitting comfortably in no acute distress HEENT: normocephalic/atraumatic, Neck: supple, symmetrical Cardiac: normal heart sounds Pulm: normal breath sounds B/L, no added breath sounds Laboratory Tests 11/06/18 02/21/19 12/11/19 07:24 08:40 12:48 Free T4 1.24 1.06 0.77 TSH Thyroglobulin Thyroglobulin Antibody 08/13/20 08/20/20 08/24/20 09:10 11:10 08:25 Free T4 0.75 TSH 71.84 H 45.30 H Thyroglobulin <0.1 L <0.1 L Thyroglobulin Antibody <1 10/01/20 01/07/21 03/11/21 11:15 09:08 08:18 Free T4 1.64 1.53 TSH 16.71 H 3.81 0.74 Thyroglobulin <0.1 L <0.1 L <0.1 L Thyroglobulin Antibody <1 <1 <1 06/03/21 10/21/21 02/24/22 09:49 10:04 09:57 Free T4 1.67 1.25 1.08 TSH 0.27 L 0.19 L 5.90 H Thyroglobulin <0.1 L <0.1 L <0.1 L Thyroglobulin Antibody <1 <1 <1 04/28/22 12/15/22 04/26/23 10:21 10:57 09:28 Free T4 1.42 1.00 TSH 0.81 2.19 5.38 H Thyroglobulin <0.1 <0.1 Thyroglobulin Antibody <1 <1 08/23/23 11/26/23 02/22/24 07:36 09:27 10:57 Free T4 1.11 1.18 1.25 TSH 4.12 H 5.12 H 0.62 Thyroglobulin <0.1 Thyroglobulin Antibody <1 08/25/24 08:10 Free T4 1.44 TSH 0.12 L Thyroglobulin Thyroglobulin Antibody Laboratory Tests 02/26/24 08/25/24 10/31/24 08:53 08:10 08:41 Plt Count 382 Sodium 138 Potassium 4.4 Creatinine 0.73 Estimated GFR > 60 Fasting Glucose 154 H Estimat Average Glucose 128 Hgb A1c (Clinic) 6.4 H Hemoglobin A1c % 6.1 H Calcium 8.7 AST 20 ALT 16 Triglycerides 49 Cholesterol 193 LDL Cholesterol, Calc 129 H HDL Cholesterol 55 TSH 0.12 L 0.23 L Free T4 1.44 1.21 Thyroglobulin <0.1 L Urine Creatinine 65.28 Urine Microalbumin < 5.0 Thyroglobulin Antibody <1 Laboratory Tests 10/31/24 11/06/24 12/25/24 08:41 08:29 09:26 Plt Count 382 Sodium 138 Creatinine 0.73 Estimated GFR > 60 Glucose (Clinic) 135 H Hemoglobin A1c % 6.1 H TSH 1.76 Free T4 1.34 Urine Creatinine 65.28 Urine Microalbumin < 5.0 US SOFT TISSUE HEAD AND NECK. 02/15/25 CLINICAL INFORMATION: Personal history of malignant neoplasm of thyroid. Status post total thyroidectomy.. COMPARISON: Ultrasound soft tissue neck 06/07/2023 TECHNIQUE: Linear transducer alfaro-scale and color Doppler examination with attention to the region of the thyroid. FINDINGS: RIGHT NECK: Right level 1B lymph node measuring 0.63 x 0.44 x 0.78 cm and has normal appearance. Previously measured 0.70 x 0.60 x 0.50 cm. LEFT NECK: No lymph nodes visualized. Thyroid gland is surgically absent. No residue thyroid tissue seen. US/US soft tiss head and/or neck IMPRESSION: Solitary lymph node in right neck. Previously seen lymph nodes in the right and left neck are not visualized at this time. Electronically signed by: Aaron Echeverria MD 02/16/2025 07:31 AM EDT RP US SOFT TISSUE NECK 06/07/23 CLINICAL INFORMATION: Personal history of malignant neoplasm of thyroid. COMPARISON: Ultrasound soft tissue head/neck 12/07/2021. Ultrasound soft tissue head/neck thyroid dated 04/15/2019. TECHNIQUE: Ultrasound of the neck soft tissues is performed with high- frequency alfaro-scale imaging and color Doppler. Limited visualization due to body habitus. FINDINGS: THYROID BED: Prior thyroidectomy. No residual thyroid tissue demonstrated in the thyroid bed. No cystic or solid nodules demonstrated in the thyroid bed. RIGHT NECK SOFT TISSUES: Right level 1B 0.8 x 0.5 x 0.8 cm node with echogenic hilum, previously 0.8 x 0.5 x 0.7 cm. Right level 1B 1.7 x 0.6 x 0.8 cm node with echogenic hilum was not identified on the prior exam. LEFT NECK SOFT TISSUES: Left level 5A 1.8 x 0.9 x 1.4 cm node was not identified on the prior study. This node appears atypical with diffuse internal echoes and cortical thickening. Left level 3 node measures 2.0 x 0.8 x 1.0 cm with echogenic hilum and borderline cortical thickening, not previously identified. US/US soft tiss head and/or neck IMPRESSION: 1. Bilateral cervical nodes as detailed above. Correlation with clinical exam recommended to determine further management. Recommend follow up ultrasound in 3 months. 2. If clinically indicated further evaluation of the neck soft tissues and nodes may be performed with CT soft tissue neck with intravenous contrast. US SOFT TISSUE NECK 12/07/2021 CLINICAL INFORMATION: Personal history of malignant neoplasm of thyroid. COMPARISON: Ultrasound-guided thyroid biopsy dated 08/06/2019. Ultrasound soft tissue head/neck thyroid dated 04/15/2019. TECHNIQUE: Ultrasound of the neck soft tissues is performed with high- frequency alfaro-scale imaging and color Doppler. FINDINGS: THYROID BED: Prior thyroidectomy. No residual thyroid tissue demonstrated in the thyroid bed. No cystic or solid nodules demonstrated in the thyroid bed. RIGHT NECK SOFT TISSUES: Scattered architecturally normal nodes are present. The nodes show normal fatty hilus, normal cortical thickness, and no cystic change or calcification. No abnormal color flow. The largest nodes are as follows: Level IB: 0.76 x 0.45 x 0.72 cm. Normal dianelys architecture. Level IA: 0.72 x 0.60 x 0.52 cm. Normal dianelys architecture. LEFT NECK SOFT TISSUES: Scattered architecturally normal nodes are present. The nodes show normal fatty hilus, normal cortical thickness, and no cystic change or calcification. No abnormal color flow. No lymph nodes seen on the left. US/US soft tiss head and/or neck IMPRESSION: 1. Benign right neck lymph nodes. No abnormal left neck lymph nodes seen. 2. If clinically indicated further evaluation of the neck soft tissues and nodes may be performed with CT soft tissue neck with intravenous contrast. 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 Hypocalcemia Postoperative hypothyroidism History of thyroid cancer Vitamin D deficiency HLD (hyperlipidemia) HTN (hypertension) Onychomycosis of multiple toenails with type 1 diabetes mellitus Surgical History S/P trigger finger release History of foot surgery Hx of thyroidectomy History of dental surgery Family History Father Myocardial infarction Pacemaker Mother Pulmonary embolism High cholesterol Social History Household Members: Spouse Housing: House Patient Tobacco Use Status: Never used Tobacco e-Cigarette/Vaping Use: Never Used Second Hand Smoke Exposure: No service: No Current occupational status: employed 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 Cognitive needs: No Hearing needs: No Vision needs: Yes Physical Exam Vital Signs: Last Vital Signs Pulse 79 03/16/25 07:40 BP 110/82 03/16/25 07:40 Pulse Ox 98 03/16/25 07:40 Oxygen Delivery Method Room Air 03/16/25 07:40 BMI result Body Mass Index 63.4 Office Procedures Glucose Monitoring Details Details: See [facility] [address] - Glucose monitoring, continuous-physician I&R Procedure code (CPT) selection complete Results AMB Hemoglobin A1c 2 AMB Hemoglobin A1c 6.0 % Last Edit by AMARIS White on 03/16/25 08:08 Results Reviewed Results Reviewed: Laboratory Last Values Glucose (Clinic) 130 mg/dL (60-115) H 03/16/25 07:48 Assessment & Plan Assessment & Plan (1) History of thyroid cancer: Code(s): Z85.850 - Personal history of malignant neoplasm of thyroid Category: Medical Plan: 34-year-old female coming in today for follow up of papillary thyroid cancer status post right hemithyroidectomy [place] [address] Parth Dutta at [facility], which revealed PTC 1.5 cm with no extrathyroidal extension, no angioinvasion, no lymphatic invasion, uninvolved margins, 0/2 lymph nodes positive, AJCC stage I pT1b N0 a, HEIDI low risk of recurrence, status post completion thyroidectomy 03/23/2020, with pathology revealing 2 foci of PTC measuring 1.6 cm and 0.2 cm, with a 1.6 cm foci having ill-defined margins and capsular invasion, moving her up to HEIDI intermediate risk of recurrence. Status post I 131 remnant ablation with 29.1 mCi of I 131 08/24/2020, who is currently HEIDI excellent response to therapy. Ultrasound of the neck last done in January 2025 did not show any abnormal lymph nodes. She has had an undetectable stimulated and non stimulated thyroglobulin level. Labs last done 08/25/2024, tumor markers undetectable. Most recent TSH from November 2024 within goal at 1.73., given excellent response to therapy goal TSH is 0.5-2. She is on Tirosint because she could never reach goal TSH on levothyroxine, suggesting absorption issues. Plan: -continue Tirosint 200 mcg daily -we will plan to repeat next set of tumor markers in August 2025 prior to next follow up (2) Postoperative hypothyroidism: Code(s): E89.0 - Postprocedural hypothyroidism Category: Medical Plan: Most recent TSH from November 2024 within goal at 1.73., given excellent response to therapy goal TSH is 0.5-2. She is on Tirosint because she could never reach goal TSH on levothyroxine, suggesting absorption issues. Plan: -continue Tirosint 200 mcg daily (3) Type 1 diabetes mellitus with retinopathy: Code(s): E10.319 - Type 1 diabetes mellitus with unspecified diabetic retinopathy without macular edema Category: Medical Qualifiers: Diabetic retinopathy severity: with unspecified retinopathy severity D iabetes mellitus macular edema: without macular edema Laterality: unspecified laterality Qualified Code(s): E10.319 - Type 1 diabetes mellitus with unspecified diabetic retinopathy without macular edema Plan: 34-year-old female with a history of type 1 diabetes mellitus diagnosed at the age of 2, who is on tandem T slim insulin pump with Dexcom G7, gets insulin lispro through the pump. The pump and CGM data reviewed, her A1c is excellent at 6.0% POC 03/16/2025 which is stable from 6.1% from October 2024, Her pump settings are close to where they should be based on her total daily dose,. No pump setting changes made today. I She is using a lot of insulin her total daily dose is 120 units and her basal rates are quite high. As we go up on the dose of GLP 1 agonist to help with lowering insulin resistance hopefully her insulin requirements we will come down.. Plan: -no pump settings changed today -increase Zepbound 5 mg weekly -up-to-date on eye exam, has a history of retinopathy -follows regularly with adolescent counselor, up to date, has mild neuropathy symptoms -normal kidney function and urine microalbumin from October 2024, she has not on any Satish inhibitors anymore -follow up in 6 months (4) Insulin pump in place: Code(s): Z96.41 - Presence of insulin pump (external) (internal) Category: Medical Plan: Has tandem T slim insulin pump with Dexcom G7 CGM, on insulin lispro through the pump Prescribed backup Lantus: To inject 40 units in case of pump failure She said she buys pen needles [id number] as they are cheaper Prescribed urine ketone strips, did education that if she ever has blood sugars greater than 250 mg/dL, should check ketones. Briefly discussed ketone action plan. Discussed hypoglycemia education. (5) Obesity: Code(s): E66.9 - Obesity, unspecified Category: Medical Qualifiers: Obesity type: due to excess calories Obesity classification: u nspecified obesity classification Serious obesity comorbidity presence: with serious comorbidity Qualified Code(s): E66.09 - Other obesity due to excess calories Plan: Current BMI 63.4 kg per m2 Current weight 346 lb 03/16/2025 down from October 2024 356 lb On Zepbound 2.5 mg weekly This will help her with her morbid obesity with serious comorbidities of hyperlipidemia, type 1 diabetes mellitus and reduce the dose of her insulin. She is requiring high amounts of insulin. Plan: -increase Zepbound to 5 mg weekly injection, we will plan to uptitrated next visit (6) HLD (hyperlipidemia): Code(s): E78.5 - Hyperlipidemia, unspecified Category: Medical Qualifiers: Hyperlipidemia type: unspecified Qualified Code(s): E78.5 - Hyperlipidemia, unspecified Plan: LDL elevated to 129, she now has better adherence with the atorvastatin. Plan: -reiterated importance of taking medication regularly atorvastatin 40 mg daily -lipid panel ordered to be done prior to next follow up in August 2025 Plan I spent 30 minutes in reviewing the record, seeing the patient and documenting in the medical record. Orders: Orders 2 AMB Hemoglobin A1c Today E10.319 - Type 1 diabetes mellitus with unspecified diabetic retinopathy without macular edema, Z13.9 - Encounter for screening, unspecified Lipid Panel 08/09/25 E10.319 - Type 1 diabetes mellitus with unspecified diabetic retinopathy without macular edema, E89.0 - Postprocedural hypothyroidism, Z85.850 - Personal history of malignant neoplasm of thyroid Thyroid Stimulating Hormone 08/09/25 E10.319 - Type 1 diabetes mellitus with unspecified diabetic retinopathy without macular edema, E89.0 - Postprocedural hypothyroidism, Z85.850 - Personal history of malignant neoplasm of thyroid Free T4 (Free Thyroxine) 08/09/25 E10.319 - Type 1 diabetes mellitus with unspecified diabetic retinopathy without macular edema, E89.0 - Postprocedural hypothyroidism, Z85.850 - Personal history of malignant neoplasm of thyroid Thyroglobulin 08/09/25 E10.319 - Type 1 diabetes mellitus with unspecified diabetic retinopathy without macular edema, E89.0 - Postprocedural hypothyroidism, Z85.850 - Personal history of malignant neoplasm of thyroid Thyroglobulin Tumor Marker 08/09/25 E10.319 - Type 1 diabetes mellitus with unspecified diabetic retinopathy without macular edema, E89.0 - Postprocedural hypothyroidism, Z85.850 - Personal history of malignant neoplasm of thyroid AMB Glucose Monitoring Today E10.319 - Type 1 diabetes mellitus with unspecified diabetic retinopathy without macular edema, Z96.41 - Presence of insulin pump (external) (internal) Comprehensive Met. Panel 08/09/25 E10.319 - Type 1 diabetes mellitus with unspecified diabetic retinopathy without macular edema, E89.0 - Postprocedural hypothyroidism, Z85.850 - Personal history of malignant neoplasm of thyroid Microalbumin, Random (w Creat) 08/09/25 E10.319 - Type 1 diabetes mellitus with unspecified diabetic retinopathy without macular edema, E89.0 - Postprocedural hypothyroidism, Z85.850 - Personal history of malignant neoplasm of thyroid Hemoglobin A1c 08/09/25 E10.319 - Type 1 diabetes mellitus with unspecified diabetic retinopathy without macular edema, E89.0 - Postprocedural hypothyroidism, Z85.850 - Personal history of malignant neoplasm of thyroid Complete Blood Count no Diff 08/09/25 E10.319 - Type 1 diabetes mellitus with unspecified diabetic retinopathy without macular edema, E89.0 - Postprocedural hypothyroidism, Z85.850 - Personal history of malignant neoplasm of thyroid Thyroglobulin Antibodies 08/09/25 E10.319 - Type 1 diabetes mellitus with unspecified diabetic retinopathy without macular edema, E89.0 - Postprocedural hypothyroidism, Z85.850 - Personal history of malignant neoplasm of thyroid Medications: New 2 tirzepatide (weight loss) (Zepbound) 5 mg (0.5 mL) subcut QWEEK 2 mL 7RF Changed 2 From Tirosint (levothyroxine) Take 25 mcg pill daily with 200 mcg pill Tirosint brand name only ROXY No substitution allowed 200 mcg PO DAILY 30 caps 5RF NS To Tirosint (levothyroxine) Tirosint brand name only ROXY No substitution allowed 200 mcg PO DAILY 30 caps 11RF NS Discontinued 2 tirzepatide (weight loss) (Zepbound) for 4 weeks Discontinued Reason: Doctor's Order 2.5 mg (0.5 mL) subcut QWEEK 2 mL 2RF Coding Level of Care Code Est Pt Level 4 (26864) Diagnoses History of thyroid cancer Z85.850 Postoperative hypothyroidism E89.0 Type 1 diabetes mellitus with retinopathy without macular edema, unspecified laterality, unspecified retinopathy severity E10.319 Diabetic retinopathy severity: with unspecified retinopathy severity Diabetes mellitus macular edema: without macular edema Laterality: unspecified laterality Insulin pump in place Z96.41 Obesity due to excess calories with serious comorbidity, unspecified classification E66.09 Obesity type: due to excess calories Obesity classification: unspecified obesity classification Serious obesity comorbidity presence: with serious comorbidity Hyperlipidemia, unspecified hyperlipidemia type E78.5 Hyperlipidemia type: unspecified CPT Codes Details - CPT: 25993 - Glucose monitoring, continuous-physician I&R ([id number]) Time Spent (min) 30
--- OUTSIDE RECORDS SUMMARY | 2025-03-16 07:41 | XMS_ITS | Clinical Summary ---
Author Organization [facility] Facility Address [address] [place] [id number] Care Team Providers Care Software Support Technician Name Role Phone Cosmo Magaña MD Primary Care Provider [phone] Medications calcium carbonate (OS-MALIKA) 1250 (500 Ca) [...] Exam 05/02/2022 Influenza Vaccine (#1) 2025 Insurance [facility] Care Teams Software Support Technician Relationship Specialty Start Date End Date Cosmo Magaña MD 1962 [facility] [facility] [place] [address] PCP - General Internal Medicine 05/01/22
--- OUTSIDE RECORDS SUMMARY | 2025-03-16 07:41 | XMS_ITS | Clinical Summary ---
Author Organization [facility] Address [address] [facility] [address] [place] [id number] Phone Care Team Providers Care Breakdown Mill Operator Name Role Phone Dominique Navarro MD Unavailable [phone] Alisson Magaña MD Primary Care Provider [...] feels comfortable managing her pump and her appeals reviewer veteran was on board with her starting a [...] iodine treatment Follows with Dr. Bedolla at [place]. Assessment & Plan (02/05/2024 9:41 PM EDT): We had a discussion regarding the concern go. 1 such that it is possibly increasing his medullary thyroid cancer. There is no evidence that it increases the risk of papillary thyroid cancer which she had years ago. She has undergone total thyroidectomy. And has her labs monitored by appeals reviewer veteran. She understands that there is not enough data about use of GLP-1's in patients with nonmedullary thyroid cancers. 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 PAP SMEAR [...] 52, 56, 58, 59, 66, 68) by [employer] On[employer]arity HR-HPV analysis. Clinical correlation is advised. This HPV test was performed at [facility], [address] [place] [address]. This test has been FDA approved for [employer] cervical cytology specimens. The accuracy and precision of this test for all other specimen sources has been verified in the Cytopathology Laboratory of the [facility] and has not been cleared or approved by the U.S. Food and Drug Administration. Clinical correlation is advised. CLINICAL HISTORY Date of Last Menstrual Period: Not Provided Menstrual History: Unknown Contraceptive History: Nuva Ring Other Clinical Conditions: Screening Pap SPECIMEN SOURCE A: PAP SMEAR (SUREPATH) CE Patient Name: LISE BROOKS : 1990 (Age: 30) Sex: F Institution: [facility] Location: [facility] Date of Collection: 07/08/2020 Date of Reported: 07/12/2020 13:17 Results to: Christy Daniels MD us Christy Daniels MD CYTOLOGY ORDERABLES Edited Result - Final SEE NARRATIVE * (ABNORMAL) POCT Hemoglobin A1c (04/14/2018 2:23 PM EDT) Hemoglobin A1c 9.2(A) 4.2 - 5.8 % [facility] Other 04/14/2018 2:23 PM EDT us Dominique Navarro MD POINT OF CARE TEST ORDERABLES F inal Result [address] [phone] from Last 3 Months or Most Recently Relevant to Health Maintenance Insurance [facility] PPO [facility] PPO Care Teams Breakdown Mill Operator Relationship Specialty Start Date End Date Alisson Magaña MD [facility] [address] [place] [id number] PCP - General 07/04/17 Dominique Navarro MD [address] [place] [address] [email or web address] Historical LMR Provider 04/15/17 Additional Source Comments The information contained in this document represents components of the legal health record. It is not the complete legal health record.[facility]
--- OUTSIDE RECORDS SUMMARY | 2025-03-16 07:42 | XMS_ITS | Patient Health Record ---
Author Organization [facility] Address [address] [facility] [place] [address] Care Team Providers Care Tobacco Warehouse Agent Name Role Phone Archana ABDI, Alisson Ugarte Primary Care Provider Un available Angelangela Minda Unavailable [phone] Allergies Allergen (clinical drug ingredient) Drug/Non Drug [...] W/U Status Risk Notes Problem Tinea unguium (411147126) Tinea unguium (B35.1) Active confirmed Problem Type I diabetes mellitus without complication (788241526) Type 1 diabetes mellitus without complications (E10.9) Active confirmed Vital Signs Blood pressure diastolic 80 mm Hg 01/04/2025 Height 5ft 5in in 01/04/2025 Blood pressure systolic 140 mm Hg 01/04/2025 Weight 325 lbs 01/04/2025 BMI 54.08 kg/m2 01/04/2025 Encounters Encounter Location Date Provider Diagnosis [address] [address] 10/26/2024 Minda Perica Onychomycosis B35.1 ; Tinea pedis of both feet B35.3 ; Type 1 diabetes mellitus without complications E10.9 and Lower extremity edema R60.[address] [address] 01/04/2025 Minda Perica Onychomycosis B35.1 ; Tinea pedis of both feet B35.3 ; Type 1 diabetes mellitus without complications E10.9 and Lower extremity edema R60.[address] [address] 01/18/2025 Minda Pericangela Tinea unguium B35.[address] [address] 10/02/2024 Minda Perica [address] [address] 11/02/2024 Minda Miranda Assessments Encounter Date Diagnosis (ICD Code) Assessment Notes Treatment Notes Treatment Clinical Notes Section Notes 01/18/2025 Tinea unguium (ICD-10 - B35.1) 01/04/2025 Onychomycosis (ICD-10 - B35.1) 01/04/2025 Tinea pedis of both feet (ICD-10 - B35.3) 10/26/2024 Onychomycosis (ICD-10 - B35.1) 10/26/2024 Tinea pedis of both feet (ICD-10 - B35.3) 10/26/2024 Type 1 diabetes mellitus without complications (ICD-10 - E10.9) 01/04/2025 Type 1 diabetes mellitus without complications (ICD-10 - E10.9) 01/04/2025 Lower extremity edema (ICD-10 - R60.0) 10/26/2024 Lower extremity edema (ICD-10 - R60.0) Plan Of Treatment Pending Test Test Name Order Date *Liver Function Test (LFT) 10/26/2024 *Liver Function Test (LFT) 01/04/2025 *Liver Function Test (LFT) 01/18/2025 Next Appt Details Provider Name:Minda miller, 01/03/2026 09:00:00 AM, [address] [facility], [place], [address], Insurance Providers Payer Name Payer Address Payer Phone Subscriber Number Group Number Insured Name Patient Relationship to Insured Coverage Start Date Coverage End Date [employer] [place] [address] [place] [phone] [id number] Rosemary Brooks Self - patient is the insured Medical (General) History Medical History History ICD Code Cholesterol Diabetic Chicken pox Thyroid disorder Cancer Surgical History Surgery Date(Month/Year) dental surgery 07/2006 thyroidectomy, partial 03/2020,10/2019 trigger release 01/2023
[2025-03-16 07:52] LABS: Glucose, Whole Blood 130 mg/dL (60-115)
== END 2025-03-16 08:16 | disposition home or self-care (01) ==
LOC: HO.ENCR 07:39
PROVIDERS: PCP Internal Medicine; Visit Provider Student in an Organized Health Care Education/Training Program
DX: Z85.850 Personal history of malignant neoplasm of thyroid (principal); E89.0 Postprocedural hypothyroidism; E10.319 Type 1 diabetes mellitus with unspecified diabetic retinopathy without macular edema; Z96.41 Presence of insulin pump (external) (internal); E66.09 Other obesity due to excess calories; E78.5 Hyperlipidemia, unspecified; Z13.9 Encounter for screening, unspecified
CPT/HCPCS: 95251; 99214

== ENCOUNTER → 2025-03-16 07:38 | Outpatient (BNVA) | payer OTHER, SELFPAY | PROVIDERS: PCP Internal Medicine; Visit Provider Student in an Organized Health Care Education/Training Program | DX: E10.319 Type 1 diabetes mellitus with unspecified diabetic retinopathy without macular edema (principal) | CPT/HCPCS: 82947; 83036 ==